=== PATIENT | male | born 1950 | race Caucasian/White ===

== ENCOUNTER → 2017-02-14 | Outpatient (CLI) | payer MEDICARE, OTHER ==
[2016-12-21 09:48] VITALS: BMI 26.9
[~2017-02-14] MED LIST: ACET-2043 PO; ACET-3079 PO; AMIN887L16 PO; AMIO100T PO; AMOX-362 PO; ASCO-182 PO; BAC10 PO; BACDS PO; BACL-51 PO; BISA10SU62 RC; BISA10SU66 RC; CALC-605 PO; CEFE2PIG2 IV; CEPH250C37 PO; CHOL10005 PO; CHOL100052 PO; CHOL200021 PO; CIP500 PO; CIPR-212 PO; CIPR-214 PO; CIPR-344 PO; CIT20 PO; CITA-137 PO; CITA-139 PO; CLAR-1 PO; CLIN300C99 PO; CLO1 PO; CLON-308 PO; CRAN200C5; CRAN400T5 PO; CRAN450C PO; CRAN450T10 PO; CYC10 PO; CYCL10TA29 PO; D3/E1CAP PO; DIA5 PO; DOC100 PO; DOCU-202 PO; DOCU50LI30 PO; DOXY-179 PO; DUL30 PO; DULO30CA35 PO; ENSURE PLUS PO; FENT-15 TD; FENT-90 TD; FENT1PAT40 TD; FESO8PT PO; FLU150 FT; FLU150 PO; FLUC150T40 PO; FLUC200T56 PO; GLAT20KI3 SQ; HYDR-4309 PO; LACT-214 PO; LACT1CAP6 PO; LACT1CAP64 PO; LEV500 PO; LEVO-85 PO; LEVO250T41 PO; LEVO750T27 PO; LOPE1TAB55 PO; LOR5/325 PO; MAGN400C PO; MELA1TAB27 PO; MELA3TAB31 PO; METR-159 PO; METR-160 PO; MIRA50TA PO; MIRT7.5T2 PO; MOM PO; MULT-976 PO; MULT1TAB64 PO; NEPA1.7D OP; NIT100 PO; NITR-1 PO; NYST1POW24 PO; OMEP-125 PO; OMEP40CA48 PO; ONDA4TAB PO; ONDA4TAB97 PO; ONDA8TAB91 PO; ONDA8TAB94 PO; OXYB10TA16 PO; OXYC-373 PO; OXYGENHOME INH; PANT40TA65 PO; PEP PO; PER PO; PHENA200 PO; POLY17PO21 PO; POTA-23 PO; POTA-24 PO; POTA-28 PO; POTA10CA61 PO; PROM25SU9 RC; QUE25 PO; QUET25TA PO; SAW/1TAB2 PO; SOLI10TA8 PO; SULF-198 PO; TIO18R INH; TOLT2TAB5 PO; TOLT4CAP13 PO; TRA50 PO; TRAM-627 PO; TRAZ-133 PO; VANC1FRO2 IV; ZINC PO; ZINC30OI8 TP; ZINC50TA2 PO; ZINC50TA43 PO; ZOLP-350 PO; [UNRECOGNIZED DRUG - CODE] IV; [UNRECOGNIZED DRUG - CODE] IV; [UNRECOGNIZED DRUG - CODE] IV; [UNRECOGNIZED DRUG - CODE] PO; [UNRECOGNIZED DRUG - CODE] PO
== END ==
LOC: AMB 22:15
PROVIDERS: ATTEND Nurse Practitioner
DX: R41.82 Altered mental status, unspecified (principal); W06.XXXA Fall from bed, initial encounter; Y92.122 Bedroom in nursing home as the place of occurrence of the external cause
CPT/HCPCS: A0425; A0429

== ENCOUNTER → 2017-02-15 | Outpatient (CLI) | payer MEDICARE, OTHER ==
[2016-12-21 09:48] VITALS: BMI 26.9
== END ==
LOC: AMB 01:27
PROVIDERS: ATTEND Nurse Practitioner
DX: G35 Multiple sclerosis (principal); Z74.01 Bed confinement status
CPT/HCPCS: A0425; A0428

== ENCOUNTER 2017-03-11 12:50 | Inpatient (IN) | payer MEDICARE ==
[~2017-03-11] VITALS: Ht 185.4 cm; Wt 79.8 kg
[~2017-03-11 12:50] MED LIST changes: -CRAN450C PO; -FENT-17 TD; -FENT-19 TD; -LIN600 PO; -MELA3TAB31 PO
--- NOTE | 2017-03-11 13:09 | ER Report ---
History and Physical Time Seen By MD: 13:08 HPI/ROS CHIEF COMPLAINT: Abdominal distention, hiccups, vomiting HISTORY OF PRESENT ILLNESS: Patient sent over to the emergency department after abnormal x-ray. He complains of continued hiccups and vomiting for the past 2 days. He endorses abdominal distention when asked. Denies hematemesis. Denies bloody or dark stools. Denies loose stools or diarrhea. Denies pain in the abdomen or elsewhere. No other concerns or complaints today. REVIEW OF SYSTEMS: Constitutional: No fever, no chills. Eyes: No discharge. ENT: No sore throat. Cardiovascular: No chest pain, no palpitations. Respiratory: No cough, no shortness of breath. Gastrointestinal: No abdominal pain, no vomiting. Genitourinary: No hematuria. Musculoskeletal: No back pain. Skin: No rashes. Neurological: No headache. Allergies: Coded Allergies: No Known Drug Allergies (Verified , 02/12/17) Home Meds Active Scripts Fluconazole (FLUCONAZOLE) 150 Mg Tab, 150 MG FT QODAY for yeast urinary tract infection, #2 TAB Prov:TYSON SANTILLAN DO 02/15/17 Pantoprazole Sodium (PANTOPRAZOLE SODIUM) 40 Mg Tablet.dr, 40 MG PO QDAY for 120 Days, Clear with patient's PCP or Dr. Olson before it is weaned and then stopped Prov:JASKARAN CULLEN MD 12/23/16 Potassium Chloride (KLOR-CON 10) 10 Meq Tablet.er, 10 MEQ PO DAILY, #0 Prov:JASKARAN CULLEN MD 03/06/16 Polyethylene Glycol 3350 (POLYETHYLENE GLYCOL 3350) 17 Gm Powd, 17 GM PO QDAY, # 1 BOTTLE Prov:PATRIZIA BRUNER MD 08/24/14 Magnesium Hydroxide (MILK OF MAGNESIA) 30 Ml Susp, 30 ML PO BID Y for CONSTIPATION, #1 BOTTLE Prov:PATRIZIA BRUNER MD 08/24/14 Reported Medications Duloxetine Hcl (CYMBALTA) 30 Mg Capsule.dr, 30 MG PO QDAY, CAP 11/30/16 Docusate Sodium (DOCU LIQUID) 50 Mg/5 Ml Liquid, 10 ML PO DAILY 11/30/16 Fentanyl (Fentanyl) 1 Each Patch.td72, 12 MCG TD Q72H 11/30/16 Ondansetron Hcl (ZOFRAN) 4 Mg Tablet, 8 MG PO Q4H Y for NAUSEA, TAB 08/16/16 Hydrocodone Bit/Acetaminophen (NORCO 5-325 TABLET) 1 Each Tablet, 1 EACH PO BID Y for PAIN, TAB 08/16/16 Cholecalciferol (Vitamin D3) (VITAMIN D) 1,000 Unit Tablet, 1000 UNIT PO QDAY 02/29/16 Multivitamin (MULTI VITAMIN DAILY) 1 Each Tablet, 1 EACH PO QDAY 02/29/16 Oxybutynin Chloride (OXYBUTYNIN CHLORIDE ER) 10 Mg Tab.er.24, 10 MG PO QDAY, TAB.SR 02/29/16 Lactobacillus Acidophilus (ACIDOPHILUS) 1 Each Capsule, 2 EACH PO QDAY, CAPSULE 11/03/15 Baclofen (BACLOFEN) 20 Mg Tablet, 20 MG PO QID, #15 TAB 08/15/14 Acetaminophen (ACETAMINOPHEN) 500 Mg Tablet, 500 MG PO TID Y for PRN, TAB 08/15/14 Bisacodyl (BISACODYL) 10 Mg Supp.rect, 10 MG RC BID Y for CONSTIPATION, SUPP.RECT 05/02/13 Hx Smoking: No Smoking Status: Former Smoker Exposure to Second Hand Smoke?: No Hx Substance Use Disorder: Yes (POT) Hx Alcohol Use: No Physical Exam General Appearance: The patient is alert, has no immediate need for airway protection and no signs of toxicity. He appears comfortable. He is hiccuping every few seconds. Eyes: Pupils equal and round no pallor or injection. ENT, Mouth: Mucous membranes are moist. Respiratory: There are no retractions, lungs are clear to auscultation. Cardiovascular: Regular rate and rhythm. No murmurs gallops or rubs Gastrointestinal: Abdomen is soft and non tender, positive for distention, positive for tympany diffusely. No masses, bowel sounds not appreciated Neurological: Multiple contractures otherwise normal baseline neuro exam Skin: Warm and dry, no rashes. Musculoskeletal: Neck is supple non tender. Extremities are nontender, nonswollen and have full range of motion. Edema, chronic DIFFERENTIAL DIAGNOSIS: After history and physical exam differential diagnosis was considered for gastric all obstruction, volvulus, other bowel obstruction, infection, adhesions HARRISON PEDRAZA MD Mar 11, 2017 13:09
[2017-03-11] MEDS ORDERED: PROMETHAZINE 25 MG/ML 1 ML AMP IVP ONE (13:15)
[2017-03-11 13:55] LABS: PLATELET COUNT, AUTOMATED 462 K/uL (150-450)
[2017-03-11] MEDS ORDERED: LORazepam 2 MG/ML VIAL IVP ONE (14:15)
--- NOTE | 2017-03-11 14:56 | RADIOLOGY IMAGING REPORT ---
FACILITY: [facility] - [place] PATIENT NAME: Jared Hammond : 1950 MR: [id number] V: [id number] EXAM DATE: ORDERING PHYSICIAN: HARRISON PEDRAZA TECHNOLOGIST: Location: [facility] [place] Patient: Jared Hammond : 1950 Visit/Account:[id number] Date of Sevice: 03/11/2017 EXAMINATION: CT abdomen and pelvis without IV contrast HISTORY: Abdominal distention. Volvulus. TECHNIQUE: Axial CT images of the abdomen and pelvis were obtained without IV contrast, with gautam l and sagittal 2D reconstructed images. One of the following dose optimization techniques was utilized in the performance of this exam: Autom ated exposure control; adjustment of the mA and/or kV according to the patient's size; or use of an i terative reconstruction technique. Specific details can be referenced in the facility's radiology C T exam operational policy. COMPARISON: 01/17/2017. FINDINGS: Evaluation of the solid and viscus parenchymal organs is limited without the benefit of IV contrast. Liver: Negative. Gallbladder and bile ducts: Negative. Spleen: Negative. Pancreas: Negative. Adrenal glands: Negative. Kidneys: There is persistent moderate hydronephrosis of both kidneys, with dilatation of both ureter s to the level of the urinary bladder. Small bilateral nonobstructing renal calculi on both kidneys. No ureteral calculus. There is a small amount of air within the right intrarenal collecting system, s imilar to prior. Bowel and peritoneum: There is marked distention of the stomach containing an air-fluid level, simil ar in appearance to the prior examinations. The duodenum is normal in caliber and unremarkable by non contrast CT imaging. Stable metallic density along the posterior wall of the gastric fundus, with loc alized streak artifact. The small bowel and colon are normal in caliber. The rectum is moderately dis tended with stool, measuring 8 cm in diameter. The upstream small bowel and colon are normal in calib er with a small to moderate volume of scattered colonic stool along the upstream colon. There are a f ew scattered colonic diverticula, without evidence of diverticulitis. No free fluid or free intraperi toneal air. Pelvic structures: The urinary bladder is decompressed, with a suprapubic catheter in place. Lymph node assessment: Negative. Vessels: Stable aneurysmal dilatation of the infrarenal abdominal aorta, measuring 3.6 cm. Musculoskeletal: No new osseous findings. Osteopenia, with multilevel degenerative changes througho ut the spine. Stable chronic dysmorphic changes at the right hip. There is diffuse muscular atrophy. Body wall: There is diastasis of the rectus abdominis muscles with some localized bulging along the midline abdominal wall at the umbilicus. No discrete hernia sac is defined. Lung bases: Mild groundglass opacity in the posterior lower lobes, likely atelectasis. IMPRESSION: 1. The small bowel and colon are normal in caliber. No bowel obstruction. The rectum is moderately di stended with stool, with a small amount amount of scattered upstream colonic stool. 2. Marked distention of the stomach with an air-fluid level, similar to prior examinations. This may be due to gastroparesis, without any CT evidence of a mechanical cause of gastric outlet obstruction. 3. Stable moderate hydronephrosis of both kidneys with dilatation of the ureters to the level of the bladder. No ureteral calculus. The urinary bladder is decompressed, with a suprapubic catheter in nila ce. 4. Colonic diverticulosis. 5. Additional nonacute findings as described. Report Dictated By: Haroon Bhagat MD at 03/11/2017 2:40 PM Report E-Signed By: Haroon Bhagat MD at 03/11/2017 2:52 PM WSN:[id number]
[2017-03-11 16:59] VITALS: BP 136/84
[2017-03-11] MEDS ORDERED: IMIPENEM/CILASTA(*) 500MG VIAL 500 MG in NS(*) 0.9% 100 ML BAG 100 ML IVPB SCH (18:00)
[2017-03-11] MEDS: NS(*) 0.9% 1000 ML BAG 1,000 ML IV PRN (18:01)
[2017-03-11] MEDS: VANCOMYCIN(*) 1 GM VIAL 1 GM, VANCOMYCIN (*) 0.5 GM VIAL 0.2 GM in NS(*) 0.9% 250 ML BA... IVPB SCH (18:02)
--- NOTE | 2017-03-11 19:14 | History & Physical ---
History of Present Illness History of Present Illness 66yo male with advanced MS, concern for gastroparesis and recurrent UTI secondary to an indwelling catheter who was sent to the ER for a distended stomach on plain film and vomiting. We don't have any records from the [facility] and he is a poor historian. He apparently was sent to the radiology department for n/v. It is unclear how long it has been going on. The radiologist noted a distended stomach on xray and sent him to the ER. The patient is without any specific complaints. In the ER, an NG was attempted to placed, but he couldn't tolerate it. He was also given Ativan and Phenergan. History Problems: (1) Multiple sclerosis Status: Chronic (2) Gastroparesis Status: Chronic (3) UTI (urinary tract infection) due to urinary indwelling catheter Status: Acute (4) History of suprapubic catheter Status: Chronic Home Meds Active Scripts Fluconazole (FLUCONAZOLE) 150 Mg Tab, 150 MG FT QODAY for yeast urinary tract infection, #2 TAB Prov:TYSON SANTILLAN DO 02/15/17 Pantoprazole Sodium (PANTOPRAZOLE SODIUM) 40 Mg Tablet.dr, 40 MG PO QDAY for 120 Days, Clear with patient's PCP or Dr. Olson before it is weaned and then stopped Prov:JASKARAN CULLEN MD 12/23/16 Potassium Chloride (KLOR-CON 10) 10 Meq Tablet.er, 10 MEQ PO DAILY, #0 Prov:JASKARAN CULLEN MD 03/06/16 Polyethylene Glycol 3350 (POLYETHYLENE GLYCOL 3350) 17 Gm Powd, 17 GM PO QDAY, # 1 BOTTLE Prov:PATRIZIA BRUNER MD 08/24/14 Magnesium Hydroxide (MILK OF MAGNESIA) 30 Ml Susp, 30 ML PO BID Y for CONSTIPATION, #1 BOTTLE Prov:PATRIZIA BRUNER MD 08/24/14 Reported Medications Duloxetine Hcl (CYMBALTA) 30 Mg Capsule.dr, 30 MG PO QDAY, CAP 11/30/16 Docusate Sodium (DOCU LIQUID) 50 Mg/5 Ml Liquid, 10 ML PO DAILY 11/30/16 Fentanyl (Fentanyl) 1 Each Patch.td72, 12 MCG TD Q72H 11/30/16 Ondansetron Hcl (ZOFRAN) 4 Mg Tablet, 8 MG PO Q4H Y for NAUSEA, TAB 08/16/16 Hydrocodone Bit/Acetaminophen (NORCO 5-325 TABLET) 1 Each Tablet, 1 EACH PO BID Y for PAIN, TAB 08/16/16 Cholecalciferol (Vitamin D3) (VITAMIN D) 1,000 Unit Tablet, 1000 UNIT PO QDAY 02/29/16 Multivitamin (MULTI VITAMIN DAILY) 1 Each Tablet, 1 EACH PO QDAY 02/29/16 Oxybutynin Chloride (OXYBUTYNIN CHLORIDE ER) 10 Mg Tab.er.24, 10 MG PO QDAY, TAB.SR 02/29/16 Lactobacillus Acidophilus (ACIDOPHILUS) 1 Each Capsule, 2 EACH PO QDAY, CAPSULE 11/03/15 Baclofen (BACLOFEN) 20 Mg Tablet, 20 MG PO QID, #15 TAB 08/15/14 Acetaminophen (ACETAMINOPHEN) 500 Mg Tablet, 500 MG PO TID Y for PRN, TAB 08/15/14 Bisacodyl (BISACODYL) 10 Mg Supp.rect, 10 MG RC BID Y for CONSTIPATION, SUPP.RECT 05/02/13 Allergies: Coded Allergies: No Known Drug Allergies (Verified , 02/12/17) Patient History: FH: dementia MOTHER, Age:unk FH: emphysema FATHER, , Age:70 Sepsis secondary to UTI Hx Smoking: No Smoking Status: Former Smoker Exposure to Second Hand Smoke?: No Caffeine Intake: Coffee Caffeine/Cups Per Day: 3 Hx Alcohol Use: No Hx Substance Use Disorder: Yes (POT) Social Drug Use: Currently Social Drugs: Marijuana Amount Of Social Drug/s Used: States, "if it's around, I smoke it." Review of Systems All Systems Reviewed/Normal: Yes, Except as Noted Exam Vital Signs Vital Signs Date Time Temp Pulse Resp B/P (MAP) Pulse Ox O2 Delivery O2 Flow Rate FiO2 03/11/17 16:59 98.3 109 20 136/84 (101) 91 Room Air 03/11/17 16:36 2.0 General Appearance: No Acute Distress (sleepy. Answers questions. ) Neuro: Other (Contracted in legs and arms. Sleepy. More confused than baseline) Cardiovascular: Regular Rate and Rhythm Respiratory: Clear to Auscultation GI: Abd Soft and Non-Tender Medical Decision Making Data Points Result Diagram: 03/11/17 1340 03/11/17 1340 Item Value Date Time White Blood Count 18.3 k/uL H 03/11/17 1340 Hemoglobin 15.7 g/dL 03/11/17 1340 Hematocrit 46.8 % 03/11/17 1340 Platelet Count 462 K/uL H 03/11/17 1340 Neutrophils (%) (Auto) 85.7 % H 03/11/17 1340 Creatinine 1.00 mg/dl 02/12/17 0818 Creatinine 0.90 mg/dl 03/11/17 1015 Creatinine 1.00 mg/dl 03/11/17 1340 Blood Urea Nitrogen 30 mg/dl H 03/11/17 1340 Blood Urea Nitrogen 29 mg/dl H 03/11/17 1015 Blood Urea Nitrogen 23 mg/dl H 02/12/17 0818 Random Glucose 129 mg/dl H 03/11/17 1340 Random Glucose 132 mg/dl H 03/11/17 1015 Random Glucose 126 mg/dl H 02/12/17 0818 Total Bilirubin 0.8 mg/dl 03/11/17 1340 Aspartate Amino Transf (AST/SGOT) 20 U/L 03/11/17 1340 Alanine Aminotransferase (ALT/SGPT) 32 U/L 03/11/17 1340 Alkaline Phosphatase 137 U/L H 03/11/17 1340 Troponin I < 0.012 ng/ml 03/11/17 1340 Total Protein 9.0 gm/dl H 03/11/17 1340 Albumin 4.3 g/dl 03/11/17 1340 Lipase 66 U/L 03/11/17 1340 Urine Leukocyte Esterase Moderate H 03/11/17 0000 Urine RBC 663 /HPF 03/11/17 0000 Urine WBC 3209 /HPF 03/11/17 0000 Urine WBC Clumps Many /HPF 03/11/17 0000 Urine Squamous Epithelial Cells None /LPF 03/11/17 0000 Urine Amorphous Crystals Few /HPF 03/11/17 0000 Urine Bacteria Negative /HPF 03/11/17 0000 Urine Mucus None /HPF 03/11/17 0000 EKG / Imaging Imaging Abd AP/Erect/decub - 1. Stomach is markedly distended with air worrisome for gastric outlet obstruction, either functional or mechanical Abd/Pelvis CT - 1. The small bowel and colon are normal in caliber. No bowel obstruction. The rectum is moderately distended with stool, with a small amount amount of scattered upstream colonic stool. 2. Marked distention of the stomach with an air-fluid level, similar to prior examinations. This may be due to gastroparesis, without any CT evidence of a mechanical cause of gastric outlet obstruction. 3. Stable moderate hydronephrosis of both kidneys with dilatation of the ureters to the level of the bladder. No ureteral calculus. The urinary bladder is decompressed, with a suprapubic catheter in place. 4. Colonic diverticulosis. 5. Additional nonacute findings as described. Assessment and Plan Problems: (1) UTI (urinary tract infection) due to urinary indwelling catheter Status: Acute Assessment & Plan: He presented with n/v/gastric distention and has pyuria. He has a h/o yeast and MRSA recently for UTI. He has been on fluconazole recently, reportedly. We are still awaiting the medication list from [facility]. Will place him in contact isolation, culture urine and treat with Primaxin and Vancomycin. (2) Gastroparesis Status: Chronic Assessment & Plan: He has a h/o gastric distention that occurs with acute UTI. Will try Reglan for nausea. Repeat KUB tomorrow. Might need to place NG if he has refractory vomiting. Will use IV Protonix. (3) Multiple sclerosis Status: Chronic Assessment & Plan: Hold Baclofen, oxybutynin, Cymbalta, Miralax, docusate. Will continue the Fentanyl patch. Copies to: HEMA RILEY MD Venous Thromboembolism Antithrombotics Is Pt On Any Antithrombotics?: No Exam Sepsis Risk: No Definite Risk JASKARAN CULLEN MD Mar 11, 2017 19:14
[2017-03-11 19:47] VITALS: BP 104/67
[2017-03-11] MEDS: METOCLOPRAMIDE 10 MG/2 ML SDV IVP PRN (20:12)
[2017-03-11] MEDS: IMIPENEM/CILASTA(*) 500MG VIAL 500 MG in NS(*) 0.9% 100 ML BAG 100 ML IVPB SCH (20:13)
[2017-03-11] MEDS ORDERED: MELA3TAB31 PO (22:07)
[2017-03-11] MEDS ORDERED: CRAN450C PO (22:07)
[2017-03-11 22:36] VITALS: BP 101/76
[2017-03-12] MEDS: IMIPENEM/CILASTA(*) 500MG VIAL 500 MG in NS(*) 0.9% 100 ML BAG 100 ML IVPB SCH ×4 (02:21→20:02)
[2017-03-12 02:23] VITALS: BP 124/79
[2017-03-12] MEDS: VANCOMYCIN(*) 1 GM VIAL 1 GM, VANCOMYCIN (*) 0.5 GM VIAL 0.2 GM in NS(*) 0.9% 250 ML BA... IVPB SCH (05:59)
[2017-03-12 06:43] LABS: PLATELET COUNT, AUTOMATED 401 K/uL (150-450)
[2017-03-12 07:48] VITALS: BP 130/80
[2017-03-12] MEDS: NS(*) 0.9% 1000 ML BAG 1,000 ML IV PRN ×2 (07:50→23:19)
--- NOTE | 2017-03-12 08:23 | RADIOLOGY IMAGING REPORT ---
FACILITY: [facility] - [place] PATIENT NAME: Jared Hammond : 1950 MR: [id number] V: [id number] EXAM DATE: ORDERING PHYSICIAN: JASKARAN CULLEN TECHNOLOGIST: Location: [facility] - [place] Patient: Jared Hammond : 1950 Visit/Account:[id number] Date of Sevice: 03/12/2017 KUB SINGLE VIEW ABDOMEN HISTORY: gastric distention Comparison made to previous CT scan from 03/11/2017. Findings: Marked gaseous distention of the stomach similar to the CT scan. Nonspecific visualized small and lar ge bowel. No abdominal mass lesions. Bony structures unremarkable. IMPRESSION: 1. Persistent marked gaseous distention of the stomach similar to the CT scan from 03/11/2017. Report Dictated By: Rupert Echeverria MD at 03/12/2017 8:15 AM Report E-Signed By: Rupert Echeverria MD at 03/12/2017 8:19 AM WSN:[id number]
[2017-03-12] MEDS: PANTOPRAZOLE SOD 40 MG IV VIAL IVP SCH (08:50)
[2017-03-12] MEDS: ENOXAPARIN 40 MG/0.4ML SYR SC SCH (08:50)
[2017-03-12] MEDS ORDERED: FENTANYL PATCH REMOVAL TP SCH (09:00)
[2017-03-12] MEDS ORDERED: fentaNYL 50 MCG TDSY TD SCH (09:00)
[2017-03-12] MEDS ORDERED: fentaNYL 25 MCG TDSY TD SCH (09:00)
[2017-03-12] MEDS ORDERED: NS(*) 0.9% 500 ML BAG 500 ML IV ONE (09:20)
--- NOTE | 2017-03-12 09:31 | Hospitalist Progress Note ---
Subjective Progress Notes Subjective He reports some belching with decreased abdominal discomfort. He would like to try ice chips and broth. Physical Exam Vital Signs Date Time Temp Pulse Resp B/P (MAP) Pulse Ox O2 Delivery O2 Flow Rate FiO2 03/12/17 07:54 92 Nasal Cannula 0.5 03/12/17 07:48 98.2 89 20 130/80 (97) Intake and Output 03/13/17 07:00 Intake Total 362 ml Balance 362 ml Intake IV Total 362 ml General Appearance: Alert, Awake, No Acute Distress Neuro: Other (He recognized me and new he was in the hospital. At or near baseline mental status.) GI: Other (Mildly distended, soft, non-tender. High pitched tinkling) Result Diagram: 03/12/1730 03/12/17 0630 Assessment and Plan Problems: (1) UTI (urinary tract infection) due to urinary indwelling catheter Status: Acute Assessment & Plan: He presented with n/v/gastric distention and has pyuria. He has a h/o yeast and MRSA recently for UTI. He has been on fluconazole recently, reportedly. We are still awaiting the medication list from [facility]. In contact isolation. Urine culture pending. IV Primaxin and Vancomycin. (2) Gastroparesis Status: Chronic Assessment & Plan: He has a h/o gastric distention that occurs with acute UTI. Trying Reglan for nausea. He still has mild abdominal distention, but feeling some improvement. Will advance to a clear liquid diet. Might need to place NG if he has refractory vomiting. Will use IV Protonix. (3) Elevated serum creatinine Status: Acute Assessment & Plan: Secondary to dehydration. Will bolus with 500cc of NS and recheck BMP at 1100. Continue NS at 100cc/hour. (4) Multiple sclerosis Status: Chronic Assessment & Plan: Hold Baclofen, oxybutynin, Cymbalta, Miralax, docusate. Will continue the Fentanyl patch. Exam Sepsis Risk: No Definite Risk JASKARAN CULLEN MD Mar 12, 2017 09:31
[2017-03-12 11:31] VITALS: BP 153/78
[2017-03-12] MEDS: METOCLOPRAMIDE 10 MG/2 ML SDV IVP PRN (12:27)
[2017-03-12 14:51] VITALS: BP 142/87
[2017-03-12 16:21] VITALS: Ht 185.4 cm; Wt 79.8 kg
[2017-03-12] MEDS: VANCOMYCIN IVPB SCH (17:18)
[2017-03-12] MEDS: [UNRECOGNIZED DRUG - OTHER] IVPB SCH (17:18)
[2017-03-12 19:11] VITALS: BP 144/79
[2017-03-12 22:17] VITALS: BP 121/69
[2017-03-13 02:10] VITALS: BP 109/70
[2017-03-13] MEDS: IMIPENEM/CILASTA(*) 500MG VIAL 500 MG in NS(*) 0.9% 100 ML BAG 100 ML IVPB SCH ×2 (02:13→08:43)
[2017-03-13 06:38] LABS: PLATELET COUNT, AUTOMATED 308 K/uL (150-450)
[2017-03-13] MEDS: [UNRECOGNIZED DRUG - OTHER] IVPB SCH ×2 (07:22→18:02)
[2017-03-13] MEDS: VANCOMYCIN IVPB SCH ×2 (07:22→18:02)
[2017-03-13 07:46] VITALS: BP 121/77
[2017-03-13] MEDS: ENOXAPARIN 40 MG/0.4ML SYR SC SCH (08:40)
[2017-03-13] MEDS: PANTOPRAZOLE SOD 40 MG IV VIAL IVP SCH (08:40)
[2017-03-13] MEDS ORDERED: INFLUENZA VIRUS VAC 0.5 ML SYR IM ONLY ONE (09:00)
[2017-03-13] MEDS ORDERED: METOCLOPRAMIDE 10 MG/2 ML SDV IVP PRN (09:35)
[2017-03-13 11:08] VITALS: BP 126/72
[2017-03-13] MEDS: NS(*) 0.9% 1000 ML BAG 1,000 ML IV PRN (11:15)
[2017-03-13] MEDS ORDERED: NS(*) 0.9% 1000 ML BAG 1,000 ML IV PRN (11:36)
--- NOTE | 2017-03-13 11:40 | Hospitalist Progress Note ---
Subjective Progress Notes Subjective He reports that he is wants try solid food. No n/v today. Physical Exam Vital Signs Date Time Temp Pulse Resp B/P (MAP) Pulse Ox O2 Delivery O2 Flow Rate FiO2 03/13/17 11:08 97.7 70 16 126/72 (90) 91 Room Air 03/13/17 07:46 0.5 Intake and Output 03/14/17 07:00 Intake Total 3295 ml Balance 3295 ml IV Total 3295 ml General Appearance: Alert, Awake, No Acute Distress GI: Soft and Non-Tender (mildly distended) Result Diagram: 03/13/17 0554 03/13/17 0554 Assessment and Plan Problems: (1) UTI (urinary tract infection) due to urinary indwelling catheter Status: Acute Assessment & Plan: He presented with n/v/gastric distention and has pyuria. He has a h/o yeast and MRSA recently for UTI. He has been on fluconazole recently, reportedly. We are still awaiting the medication list from [facility]. MRSA growing from urine. In contact isolation. On IV Primaxin and Vancomycin, will stop Primaxin. (2) Gastroparesis Status: Chronic Assessment & Plan: He has a h/o gastric distention that occurs with acute UTI. Trying Reglan for nausea. He still has mild abdominal distention, but feeling some improvement. He is tolerating oral intake today. KUB pending. If he continues to have gastric distention, will consider getting an Upper GI series to evaluate. (3) Elevated serum creatinine Status: Acute Assessment & Plan: Secondary to dehydration. Improving with hydration. Will decrease NS to 60 cc/hour. (4) Multiple sclerosis Status: Chronic Assessment & Plan: Hold Baclofen, oxybutynin, Cymbalta, Miralax, docusate. Will continue the Fentanyl patch. Exam Sepsis Risk: No Definite Risk JASKARAN CULLEN MD Mar 13, 2017 11:40
--- NOTE | 2017-03-13 13:47 | RADIOLOGY IMAGING REPORT ---
FACILITY: [facility] - [place] PATIENT NAME: Jared Hammond : 1950 MR: [id number] V: [id number] EXAM DATE: ORDERING PHYSICIAN: JASKARAN CULLEN TECHNOLOGIST: Location: [facility] - [place] Patient: Jared Hammond : 1950 Visit/Account:[id number] Date of Sevice: 03/13/2017 Exam type: KUB SINGLE VIEW ABDOMEN History: gastric distention Comparison: March 12, 2017. Findings: There is been improvement of the gaseous distention when compared to the prior study. A moderate umang unt of gas does remain in the gastric body and antrum. There now appears to be moderate gaseous dist ention of the right side of the colon. Several radiopaque densities persist over the left upper quad rant. Prominent interstitial markings seen in the lower lung puckett IMPRESSION: 1. Partial improvement of the gaseous distention when compared the prior study. There is moderate g aseous distention of the gastric body and antrum remaining. Moderate distention of the right-sided colon is now seen Report Dictated By: Kaylie Soria MD at 03/13/2017 1:39 PM Report E-Signed By: Kaylie Soria MD at 03/13/2017 1:43 PM WSN:[email or web address]
[2017-03-13 15:03] VITALS: BP 121/71
[2017-03-13] MEDS ORDERED: BARIUM SULFATE 176 GM BTL PO ONE (15:04)
--- NOTE | 2017-03-13 16:55 | Medical Nutrition Therapy ---
Nutrition Anthropometrics Height (Inches): 73.00 Height (Calculated Centimeters: 185.197302 Weight (Pounds): 176 Weight (Calculated Kilograms): 79.917 BMI Calculated: 23.22 Manish Nutrition Score: Probably Inadequate Manish Nutrition Risk Score: 12 Dietary Referral Nutrition Risk Factors: Unplanned Loss >10lbs Nutrition Risk Comment: Physical Findings Physical Appearance: Healthy BMI Skin Appearance Skin Appearance: Edema Edema Location Modifier: Both Edema Location: Lower Extremity Type of Edema: Degree of Edema: 2+ Gastrointestinal Symptoms GI Symtoms: Nausea Tube Present: Bowel Sounds: Recent Bowel Pattern: Stool Characteristics: Nutritional Diagnosis Nutritional Risk Acuity 2: GI Malabsorption Nutritional Risk Acuity 3: Substance abuse Nutritional Risk Acuity 4: %IBW 90-100% Past Medical History: MS, UTI Nutritional Acuity: 2-Moderate Nutrition Diagnosis: Altered GI Function Nutrition Etiology: Physiological Causes Nutrition Problem/Etiology/Sym: Altered GI function r/t possible gastroparesis secondary to UTI AEB abd distension. Energy Requirement: 2130 ([address] Jeor) Protein Requirement: 80 (1 g/kg) Fluid Requirement: 2400 (30 ml/kg) Diet Type: Diet as Tolerated APOLINAR/REG Nutrition Intervention: Cont diet as ordered, Encourage intake Nutrition Monitoring & Eval Nutrition Goals: Eat 75-100% Meal RD Patient Assessment Time: [address] Assessment Type: RD Assessment Patient Nutrition Acuity: 2-Moderate Follow Up Date: Mar 16, 2017 Nutritional Comment: 1/3 Pt admitted for hiccups, vommitting, and abnormal abd xray. Possible gastroparesis per hospitalist note. Notable labs include low Hct, elevated BUN, and elevated Cr. Alb and total pro WNL. Pt upgraded to clear liquids. Will continue to monitor and provide gastroparesis education as needed. 1/ Pt doing better today with no N/V and improved appetite. Pt reports wanting to try solid foods. Diet upgraded to APOLINAR. No intakes documented, but he is tolerating oral intake today per hospitalist. Pending abd xray. Notable labs include low H/H, Na 133, and BUN 33. Will continue to encourage and monitor intake. VLAD GAMINO Mar 13, 2017 12:48
[2017-03-13 19:19] VITALS: BP 124/78
[2017-03-13] MEDS ORDERED: MELATONIN 3 MG TAB PO SCH (21:00)
[2017-03-14 03:54] VITALS: BP 127/89
[2017-03-14] MEDS: VANCOMYCIN IVPB SCH (05:44)
[2017-03-14] MEDS: [UNRECOGNIZED DRUG - OTHER] IVPB SCH (05:44)
[2017-03-14 06:19] LABS: PLATELET COUNT, AUTOMATED 294 K/uL (150-450)
[2017-03-14 07:37] VITALS: BP 97/66
[2017-03-14] MEDS: ENOXAPARIN 40 MG/0.4ML SYR SC SCH (08:34)
[2017-03-14] MEDS: PANTOPRAZOLE SOD 40 MG IV VIAL IVP SCH (08:34)
--- NOTE | 2017-03-14 08:46 | RADIOLOGY IMAGING REPORT ---
FACILITY: [facility] PATIENT NAME: Jared Hammond : 1950 MR: [id number] V: [id number] EXAM DATE: ORDERING PHYSICIAN: JASKARAN CULLEN TECHNOLOGIST: Location: [facility] Patient: Jared Hammond : 1950 Visit/Account:[id number] Date of Sevice: 03/13/2017 Exam type: UPPER GI SERIES W/O AIR History: gastric distention Comparison: KUB performed earlier in the day. Findings: Upper GI series was performed portably at bedside due to patient's mobility issues. The patient was given a barium suspension to swallow. A single AP view the chest revealed no gross a bnormality of the esophagus. KUBs were obtained immediately following the barium ingestion, at 30 mi nutes to hours and 45 minutes five hours seven hours following barium ingestion. Most of the barium remained in the gastric fundus. On the seven hour images small amount of barium was noted within the nondilated jejunum. Findings are most likely related to gastroparesis, less likely mechanical gastr ic outlet due to the decompression of the stomach when compared to images several days previously and due to the passage of a small amount of barium into the nondilated jejunum IMPRESSION: 1. Large amount of residual barium remained in the stomach after seven hours though small amount of barium did pass into the nondilated jejunum. Findings are most likely related to gastroparesis. Report Dictated By: Kaylie Soria MD at 03/14/2017 8:36 AM Report E-Signed By: Kaylie Soria MD at 03/14/2017 8:40 AM WSN:[id number]
[2017-03-14] MEDS ORDERED: LIN600 PO (10:51)
[2017-03-14] MEDS ORDERED: FENT-19 TD (10:52)
[2017-03-14] MEDS ORDERED: FENT-17 TD (10:52)
--- NOTE | 2017-03-14 10:56 | Hospitalist Depart ---
Discharge Summary Reason for Hosp/Final Diag: (1) UTI (urinary tract infection) due to urinary indwelling catheter Status: Acute Hospital Course & Plan: He did have pyuria on admission and an elevated WBC. His culture was positive for MRSA. He was on empiric treatment with Primaxin and vancomycin. We have now converted him to oral linezolid. (2) Gastroparesis Status: Chronic Hospital Course & Plan: He has a history of gastric distention. This has now resolved and he is tolerating oral intake. (3) Elevated serum creatinine Status: Acute Hospital Course & Plan: Secondary to dehydration. Improving with hydration. Will decrease NS to 60 cc/hour. (4) Multiple sclerosis Status: Chronic Hospital Course & Plan: He is on chronic treatment with Baclofen and fentanyl. Departure Latest Vital Signs Vital Signs 03/13/17 03/14/17 03/14/17 07:46 07:37 07:42 Temp 97.9 Pulse 78 Resp 16 B/P (MAP) 97/66 (76) Pulse Ox 95 O2 Delivery Room Air O2 Flow Rate 0.5 Weight (Pounds): 176 Weight (Ounces): 3.0 Result Diagram: 03/14/1752503/14/17525 Condition: Improved Discharge: Halfway PT/OT Follow Up For: PT Evaluation and Treat Discharge Instructions Home Meds Active Scripts Fentanyl 50 Mcg Patch (FENTANYL 50 MCG PATCH) 1 Each Patch.td72, 50 MCG TD Q72H@ 0900, #1 PATCH Prov:CRISTA KEATING DO 03/14/17 Fentanyl 25 Mcg Patch (FENTANYL 25 MCG PATCH) 1 Each Patch.td72, 25 MCG TD Q72H@ 0900, #1 PATCH Prov:CRISTA KEATING DO 03/14/17 Linezolid (ZYVOX) 600 Mg Tab, 600 MG PO BID, #8 TAB Prov:RCISTA KEATING DO 03/14/17 Pantoprazole Sodium (PANTOPRAZOLE SODIUM) 40 Mg Tablet.dr, 40 MG PO QDAY for 120 Days, Clear with patient's PCP or Dr. Olson before it is weaned and then stopped Prov:JASKARAN CULLEN MD 12/23/16 Potassium Chloride (KLOR-CON 10) 10 Meq Tablet.er, 10 MEQ PO DAILY, #0 Prov:JASKARAN CULLEN MD 03/06/16 Polyethylene Glycol 3350 (POLYETHYLENE GLYCOL 3350) 17 Gm Powd, 17 GM PO QDAY, # 1 BOTTLE Prov:PATRIZIA BRUNER MD 08/24/14 Magnesium Hydroxide (MILK OF MAGNESIA) 30 Ml Susp, 30 ML PO BID Y for CONSTIPATION, #1 BOTTLE Prov:PATRIZIA BRUNER MD 08/24/14 Reported Medications Melatonin (MELATONIN) 3 Mg Tablet, 3 MG PO QHS 03/11/17 Docusate Sodium (DOCU LIQUID) 50 Mg/5 Ml Liquid, 10 ML PO DAILY 11/30/16 Ondansetron Hcl (ZOFRAN) 4 Mg Tablet, 8 MG PO Q4H Y for NAUSEA, TAB 08/16/16 Hydrocodone Bit/Acetaminophen (NORCO 5-325 TABLET) 1 Each Tablet, 1 EACH PO BID Y for PAIN, TAB 08/16/16 Cholecalciferol (Vitamin D3) (VITAMIN D) 1,000 Unit Tablet, 1000 UNIT PO QDAY 02/29/16 Multivitamin (MULTI VITAMIN DAILY) 1 Each Tablet, 1 EACH PO QDAY 02/29/16 Oxybutynin Chloride (OXYBUTYNIN CHLORIDE ER) 10 Mg Tab.er.24, 10 MG PO QDAY, TAB.SR 02/29/16 Lactobacillus Acidophilus (ACIDOPHILUS) 1 Each Capsule, 2 EACH PO QDAY, CAPSULE 11/03/15 Baclofen (BACLOFEN) 20 Mg Tablet, 20 MG PO QID, #15 TAB 08/15/14 Acetaminophen (ACETAMINOPHEN) 500 Mg Tablet, 500 MG PO TID Y for PRN, TAB 08/15/14 Bisacodyl (BISACODYL) 10 Mg Supp.rect, 10 MG RC BID Y for CONSTIPATION, SUPP.RECT 05/02/13 Discontinued Reported Medications Cranberry Fruit Concentrate (CRANBERRY) 450 Mg Capsule, 450 MG PO QDAY, CAPSULE 03/11/17 Duloxetine Hcl (CYMBALTA) 30 Mg Capsule.dr, 30 MG PO QDAY, CAP 11/30/16 Fentanyl (Fentanyl) 1 Each Patch.td72, 12 MCG TD Q72H 11/30/16 Discontinued Scripts Fluconazole (FLUCONAZOLE) 150 Mg Tab, 150 MG FT QODAY for yeast urinary tract infection, #2 TAB Prov:TYSON SANTILLAN DO 02/15/17 Diet: Regular Activity: As Tolerated Venous Thromboembolism Antithrombotics Is Pt On Any Antithrombotics?: No CRISTA KEATING DO Mar 14, 2017 10:56
== END 2017-03-14 14:57 | DRG 700 ==
LOC: ER 13:11 → MED 16:22
PROVIDERS: ADMIT Internal Medicine; ATTEND Internal Medicine
DX: T83.511A Infection and inflammatory reaction due to indwelling urethral catheter, initial encounter (principal); N39.0 Urinary tract infection, site not specified; B95.62 Methicillin resistant Staphylococcus aureus infection as the cause of diseases classified elsewhere; K31.84 Gastroparesis; G35 Multiple sclerosis; E86.0 Dehydration; G30.9 Alzheimer's disease, unspecified; E78.00 Pure hypercholesterolemia, unspecified; Y84.6 Urinary catheterization as the cause of abnormal reaction of the patient, or of later complication, without mention of misadventure at the time of the procedure; Z87.891 Personal history of nicotine dependence; Z86.73 Personal history of transient ischemic attack (TIA), and cerebral infarction without residual deficits
CPT/HCPCS: 36415; 74018; 74019; 74176; 74240; 80202; 81001; 82040; 82247; 82310; 82374; 82435; 82565; 82947; 83605; 83690; 84075; 84132; 84155; 84295; 84450; 84460; 84484; 84520; 85025; 85027; 87040; 87077; 87088; 87186; 96361; 96374; 99285; C9113; J0743; J1650; J2060; J2550; J2765; J3370; J7030; J7040; J7050; J7060

== ENCOUNTER → 2017-03-11 | Outpatient (CLI) | payer MEDICARE, OTHER ==
[2016-12-21 09:48] VITALS: BMI 26.9
--- NOTE | 2017-03-11 15:33 | RADIOLOGY IMAGING REPORT ---
FACILITY: [facility] - [place] PATIENT NAME: Jared Hammond : 1950 MR: [id number] V: [id number] EXAM DATE: ORDERING PHYSICIAN: HEMA RILEY TECHNOLOGIST: Location: [facility] Patient: Jared Hammond : 1950 Visit/Account:[id number] Date of Sevice: 03/11/2017 Exam type: ABDOMEN AP AND ERECT/DECUB History: Abnormal bowel sounds Comparison: January 18, 2017. Findings: The stomach is markedly distended with air. The remainder the bowel does not appear dilated. Findin gs are worrisome for gastric outlet obstruction, either mechanical or functional. Small amount of ra diopaque material is seen in the left upper quadrant of abdomen similar to the prior study. There sp ondylotic changes of the lumbar spine and extensive degenerative changes of the hip joints. Moderate vascular calcifications are present IMPRESSION: 1. Stomach is markedly distended with air worrisome for gastric outlet obstruction, either functiona l or mechanical Report Dictated By: Kaylie Soria MD at 03/11/2017 3:27 PM Report E-Signed By: Kaylie Soria MD at 03/11/2017 3:29 PM WSN:[email or web address]
== END ==
LOC: RAD 10:50
PROVIDERS: ATTEND Family Medicine
DX: K31.89 Other diseases of stomach and duodenum (principal)
CPT/HCPCS: 74021

== ENCOUNTER → 2017-03-11 | Outpatient (REF) | payer MEDICARE, OTHER ==
[2016-12-21 09:48] VITALS: BMI 26.9
== END ==
LOC: ZZLCC 11:14
PROVIDERS: ATTEND Family Medicine
DX: K31.84 Gastroparesis (principal); R41.82 Altered mental status, unspecified
CPT/HCPCS: 82310; 82374; 82435; 82565; 82947; 84132; 84295; 84520; 85027

== ENCOUNTER → 2017-03-11 | Outpatient (CLI) | payer MEDICARE ==
[~2017-03-11] MED LIST changes: +FENT-17 TD; +FENT-19 TD; +LIN600 PO; +VANC1.2520 IV; -[UNRECOGNIZED DRUG - CODE] IV
[2017-03-12 16:21] VITALS: BMI 23.2
== END ==
LOC: AMB 11:57
PROVIDERS: ATTEND Nurse Practitioner
DX: R19.7 Diarrhea, unspecified (principal)
CPT/HCPCS: A0425; A0428

== ENCOUNTER → 2017-03-14 | Outpatient (CLI) | payer MEDICARE, MEDICAID ==
[2017-03-12 16:21] VITALS: BMI 23.2
[~2017-03-14] MED LIST changes: +CEF300 PO; +CRAN450C PO; +FENT-17 TD; +FENT-19 TD; +LACT1CAP17 PO; +LIN600 PO; +MELA3TAB31 PO; +PROM-110 PO
== END ==
LOC: AMB 12:27
PROVIDERS: ATTEND Nurse Practitioner
DX: N39.0 Urinary tract infection, site not specified (principal); G71.0 Muscular dystrophy
CPT/HCPCS: A0425; A0428

== ENCOUNTER 2017-04-02 18:58 | Inpatient (IN) | payer MEDICARE, MEDICAID ==
[~2017-04-02] VITALS: Ht 185.4 cm; Wt 82.3 kg
[~2017-04-02 18:58] MED LIST changes: -LACT1CAP17 PO; -PROM-110 PO
[2017-04-02] MEDS: NS(*) 0.9% 1000 ML BAG 1,000 ML IV ONE ×4 (19:00→20:55)
--- NOTE | 2017-04-02 19:03 | ER Report ---
History and Physical Time Seen By : 19:00 HPI/ROS CHIEF COMPLAINT:? Sepsis, elevated WBC HISTORY OF PRESENT ILLNESS: 66-year-old male with advanced MS sent over from [facility] for evaluation of possible sepsis. Patient was just discharged from a hospital several weeks ago after being admitted for urinary tract infection. Patient is a chronic indwelling Child catheter. [facility] It was sent in earlier this morning documented a WBC count of 27,000 with a left shift, 92 neutrophils. He said over with a fever and tachycardia, suspicious for sepsis. Patient has altered mental status and is nonresponsive except crying out for help. He responds with grunting to loud verbal stimulation and questions. He will not follow some commands. Patient's well-known to our ER for frequent visits and admissions to the hospital. See [facility] paperwork for additional details. On arrival. Patient's documented have a fever of 101. [facility] will [facility] the [facility] on [facility]17 on Zyvox for 4 more days for MRSA in his urine. It's been completed now for over 15 days. EMS reports on arrival, he did appear cyanotic until he applied a simple mask with high flow O2. They report his color is pink, doubt during transport on the higher flow of O2. There is a DO NOT RESUSCITATE noted in the [facility] paperwork. REVIEW OF SYSTEMS: Respiratory: No cough, no dyspnea. Cardiovascular: No chest pain, no palpitations. Gastrointestinal: No vomiting, no abdominal pain. Musculoskeletal: No back pain. Allergies: Coded Allergies: No Known Drug Allergies (Verified , 02/12/17) Home Meds Active Scripts Linezolid (ZYVOX) 600 Mg Tab, 600 MG PO BID, #8 TAB Prov:CRISTA KEATING DO 03/14/17 Pantoprazole Sodium (PANTOPRAZOLE SODIUM) 40 Mg Tablet.dr, 40 MG PO QDAY for 120 Days, Clear with patient's PCP or Dr. Olson before it is weaned and then stopped Prov:JASKARAN CULLEN MD 12/23/16 Potassium Chloride (KLOR-CON 10) 10 Meq Tablet.er, 10 MEQ PO DAILY, #0 Prov:JASKARAN CULLEN MD 03/06/16 Polyethylene Glycol 3350 (POLYETHYLENE GLYCOL 3350) 17 Gm Powd, 17 GM PO QDAY, # 1 BOTTLE Prov:PATRIZIA BRUNER MD 08/24/14 Magnesium Hydroxide (MILK OF MAGNESIA) 30 Ml Susp, 30 ML PO BID Y for CONSTIPATION, #1 BOTTLE Prov:PATRIZIA BRUNER MD 08/24/14 Reported Medications Fentanyl (Fentanyl) 1 Each Patch.td72, 12 TD 04/02/17 Promethazine Hcl (PROMETHAZINE HCL) 25 Mg Tablet, 25 MG PO Q8H, TAB 04/02/17 Melatonin (MELATONIN) 3 Mg Tablet, 3 MG PO QHS 03/11/17 Docusate Sodium (DOCU LIQUID) 50 Mg/5 Ml Liquid, 10 ML PO DAILY 11/30/16 Ondansetron Hcl (ZOFRAN) 4 Mg Tablet, 8 MG PO Q4H Y for NAUSEA, TAB 08/16/16 Hydrocodone Bit/Acetaminophen (NORCO 5-325 TABLET) 1 Each Tablet, 1 EACH PO BID Y for PAIN, TAB 08/16/16 Cholecalciferol (Vitamin D3) (VITAMIN D) 1,000 Unit Tablet, 1000 UNIT PO QDAY 02/29/16 Multivitamin (MULTI VITAMIN DAILY) 1 Each Tablet, 1 EACH PO QDAY 02/29/16 Oxybutynin Chloride (OXYBUTYNIN CHLORIDE ER) 10 Mg Tab.er.24, 10 MG PO QDAY, TAB.SR 02/29/16 Lactobacillus Acidophilus (ACIDOPHILUS) 1 Each Capsule, 2 EACH PO QDAY, CAPSULE 11/03/15 Baclofen (BACLOFEN) 20 Mg Tablet, 20 MG PO QID, #15 TAB 08/15/14 Acetaminophen (ACETAMINOPHEN) 500 Mg Tablet, 500 MG PO TID Y for PRN, TAB 08/15/14 Bisacodyl (BISACODYL) 10 Mg Supp.rect, 10 MG RC BID Y for CONSTIPATION, SUPP.RECT 05/02/13 Discontinued Scripts Fentanyl 50 Mcg Patch (FENTANYL 50 MCG PATCH) 1 Each Patch.td72, 50 MCG TD Q72H@ 0900, #1 PATCH Prov:CRISTA KEATING DO 03/14/17 Fentanyl 25 Mcg Patch (FENTANYL 25 MCG PATCH) 1 Each Patch.td72, 25 MCG TD Q72H@ 0900, #1 PATCH Prov:CRISTA KEATING DO 03/14/17 Past Medical/Surgical History MS, recurrent urinary tract infections Reviewed Nurses Notes: Yes Old Medical Records Reviewed: Yes Hx Smoking: No Smoking Status: Former Smoker Exposure to Second Hand Smoke?: No Hx Substance Use Disorder: Yes (POT) Hx Alcohol Use: No Constitutional Vital Sign - Last 24 Hours 04/02/17 04/02/17 04/02/17 04/02/17 19:00 19:00 19:00 19:03 Temp 101.0 Pulse 138 134 Resp 35 B/P (MAP) 155/100 (118) 155/100 Pulse Ox 99 98 O2 Delivery Non-Rebreather O2 Flow Rate 15.0 04/02/17 04/02/17 04/02/17 04/02/17 19:08 19:13 19:18 19:23 Pulse 133 134 129 135 Resp 32 32 24 32 B/P (MAP) 134/88 (103) Pulse Ox 99 100 99 100 04/02/17 04/02/17 04/02/17 04/02/17 19:28 19:30 19:33 19:38 Pulse 135 138 143 Resp 19 16 35 B/P (MAP) 142/97 (112) Pulse Ox 100 99 99 04/02/17 04/02/17 04/02/17 04/02/17 19:45 19:45 19:48 19:53 Temp 102.2 Pulse 151 147 Resp 19 37 B/P (MAP) 132/90 (104) Pulse Ox 94 96 04/02/17 04/02/17 04/02/17 04/02/17 19:58 20:00 20:03 20:08 Pulse 141 137 133 Resp 34 32 14 B/P (MAP) 136/82 (100) Pulse Ox 96 95 95 04/02/17 04/02/17 04/02/17 04/02/17 20:13 20:15 20:18 20:23 Pulse 133 134 Resp 30 18 14 B/P (MAP) 108/77 (87) Pulse Ox 96 94 94 Physical Exam General Appearance: The patient is alert, has no immediate need for airway protection and no current signs of toxicity.. Patient is alert and crying out for help. He is nonverbal and unresponsive to questions. His vital signs are stable. He has a normal blood pressure. He is tachycardic into the 130s. Fever documented 102 rectally HEENT: Pupils equal and round no injection. Respiratory: Chest is non tender, lungs are clear to auscultation. Cardiac: regular rate and rhythm Gastrointestinal: Abdomen is soft and non tender, no masses, bowel sounds normal. Intact suprapubic catheter Musculoskeletal: Neck: Neck is supple and non tender. No lymphadenopathy Extremities have full range of motion and are non tender. Skin: No rashes or lesions. DIFFERENTIAL DIAGNOSIS: After history and physical exam differential diagnosis was considered for adult fever including but not limited to viral syndromes including influenza, urinary tract infection, pneumonia and sepsis. Medical Decision Making Data Points Result Diagram: 04/02/17190704/02/171907 Laboratory Hematology Test 04/02/17 00:00 04/02/17 19:08 04/02/17 19:26 04/02/17 19:46 Troponin I < 0.012 ng/ml C-Reactive Protein 25.0 mg/dl (<1.0) Urine Color Yellow Urine Clarity Turbid Urine pH 7.0 pH (4.8-9.5) Urine Specific [place] 1.009 Urine Protein 100 mg/dL (NEGATIVE) Urine Glucose (UA) Negative mg/dL (NEGATIVE) Urine Ketones Negative mg/dL (NEGATIVE) Urine Blood Moderate (NEGATIVE) Urine Nitrite Negative (NEGATIVE) Urine Bilirubin Negative (NEGATIVE) Urine Urobilinogen Negative mg/dL (0.2-1.9) Urine Leukocyte Esterase Large (NEGATIVE) Urine RBC 193 /HPF (0-2/HPF) Urine WBC 2762 /HPF (0-5/HPF) Urine WBC Clumps Many /HPF Urine Squamous Epithelial Cells Many /LPF (</=FEW) Urine Bacteria Many /HPF (NONE-FEW) Urine Mucus None /HPF (NONE-FEW) Influenza Virus Type A (PCR) Negative (NEGATIVE) Influenza Virus Type B (PCR) Negative (NEGATIVE) Chemistry Test 04/02/17 00:00 04/02/17 19:08 04/02/17 19:26 04/02/17 19:46 Troponin I < 0.012 ng/ml C-Reactive Protein 25.0 mg/dl (<1.0) Urine Color Yellow Urine Clarity Turbid Urine pH 7.0 pH (4.8-9.5) Urine Specific [place] 1.009 Urine Protein 100 mg/dL (NEGATIVE) Urine Glucose (UA) Negative mg/dL (NEGATIVE) Urine Ketones Negative mg/dL (NEGATIVE) Urine Blood Moderate (NEGATIVE) Urine Nitrite Negative (NEGATIVE) Urine Bilirubin Negative (NEGATIVE) Urine Urobilinogen Negative mg/dL (0.2-1.9) Urine Leukocyte Esterase Large (NEGATIVE) Urine RBC 193 /HPF (0-2/HPF) Urine WBC 2762 /HPF (0-5/HPF) Urine WBC Clumps Many /HPF Urine Squamous Epithelial Cells Many /LPF (</=FEW) Urine Bacteria Many /HPF (NONE-FEW) Urine Mucus None /HPF (NONE-FEW) Influenza Virus Type A (PCR) Negative (NEGATIVE) Influenza Virus Type B (PCR) Negative (NEGATIVE) Urinalysis Test 04/02/17 19:26 Urine Color Yellow Urine Clarity Turbid Urine pH 7.0 pH (4.8-9.5) Urine Specific [place] 1.009 Urine Protein 100 mg/dL (NEGATIVE) Urine Glucose (UA) Negative mg/dL (NEGATIVE) Urine Ketones Negative mg/dL (NEGATIVE) Urine Blood Moderate (NEGATIVE) Urine Nitrite Negative (NEGATIVE) Urine Bilirubin Negative (NEGATIVE) Urine Urobilinogen Negative mg/dL (0.2-1.9) Urine Leukocyte Esterase Large (NEGATIVE) Urine RBC 193 /HPF (0-2/HPF) Urine WBC 2762 /HPF (0-5/HPF) Urine WBC Clumps Many /HPF Urine Squamous Epithelial Cells Many /LPF (</=FEW) Urine Bacteria Many /HPF (NONE-FEW) Urine Mucus None /HPF (NONE-FEW) EKG/Imaging EKG Interpretation 12 lead EK Rhythm: Sinus tachycardia, rate 139 Stow: Left axis deviation QRS:? Inferior Q waves ST segments: normal, compared to previous EKG 02/12/17, no significant change except a new inferior Q waves of questionable significance Imaging X-ray: Single view portable chest x-ray was obtained. I viewed the images myself on the PACS system. My interpretation of the images is: No infiltrate, no effusion, normal mediastinum, comparison to previous film. 02/12/17. There is no significant change. the radiologist interpretation had no clinically significant variation from this interpretation. ED Course/Re-evaluation Clinical Indication for ER IV: Hydration, IV Access ED Course Patient was minute to an examination room. H&P was done. The dental diagnoses was considered. Patient's well-known to our ER for frequent visits for infection. He presents with symptoms suspicious for sepsis. He has altered mental status. He has a fever. He is tachycardic. Peripheral IV is established. Aggressive fluid resuscitation is initiated. Patient is olmos cultured. Patient's lactate returns at 14. There was laboratory studies earlier in the day that showed 27,000, white count. A repeat count here shows a white blood cell count of 7000. I am suspicious that one of these results is a laboratory error. Patient's urinalysis shows gross infection but he has chronic white cell count from his indwelling suprapubic catheter. A single view portable chest x-ray shows no obvious infiltrate. His only other sources skin breakdown on his sacral area. There is no evidence of infection there. 04/02/2017 8:34:39 pm case was discussed with Dr. Keating hospitalist on-call, who accepts patient for admission. Decision to Disposition Date: Apr 02, 2017 Decision to Disposition Time: 20:29 Depart Departure Latest Vital Signs Vital Signs Date Time Temp Pulse Resp B/P (MAP) Pulse Ox O2 Delivery O2 Flow Rate FiO2 04/02/17 20:23 14 94 04/02/17 20:18 134 04/02/17 20:15 108/77 (87) 04/02/17 19:45 102.2 04/02/17 19:00 Non-Rebreather 04/02/17 19:00 15.0 Impression: Primary Impression: Fever Additional Impressions: Sepsis Elevated serum lactate dehydrogenase Urinary tract infection Altered mental status MS (multiple sclerosis) Condition: Improved Disposition: Admitted from ER Problem Qualifiers Primary Impression: Fever Fever type: unspecified Qualified Codes: R50.9 - Fever, unspecified Additional Impressions: Sepsis Sepsis type: sepsis due to unspecified organism Qualified Codes: A41.9 - Sepsis, unspecified organism Urinary tract infection Urinary tract infection type: catheter-associated UTI Indwelling urinary catheter type: indwelling urethral catheter Encounter type: initial encounter Qualified Codes: T83.511A - Infection and inflammatory reaction due to indwelling urethral catheter, initial encounter; N39.0 - Urinary tract infection, site not specified Altered mental status Altered mental status type: disorientation Qualified Codes: R41.0 - Disorientation, unspecified TYSON SANTILLAN DO Apr 02, 2017 19:03
[2017-04-02 19:19] LABS: PLATELET COUNT, AUTOMATED 228 K/uL (150-450)
--- NOTE | 2017-04-02 19:36 | RADIOLOGY IMAGING REPORT ---
FACILITY: [facility] [place] PATIENT NAME: Jared Hammond : 1950 MR: [id number] V: [id number] EXAM DATE: ORDERING PHYSICIAN: TYSON SANTILLAN TECHNOLOGIST: Location: [facility] Patient: Jared Hammond : 1950 Visit/Account:[id number] Date of Sevice: 04/02/2017 Examination: CHEST SINGLE AP Comparison: 02/12/2017 History: Fever. Findings: Cardiac and hilar contour is mildly enlarged but unchanged. Low lung volumes and atelectasi s with mild chronic interstitial prominence. No definite new or enlarging consolidation or evidence o f acute peribronchial inflammation. No pneumothorax, edema, or effusion. Osseous structures are intac t. Given differences in technique, the chest is minimally changed since 02/12/2017. IMPRESSION: No definite findings of acute cardiopulmonary disease. Report Dictated By: Keyur Nevarez MD at 04/02/2017 7:30 PM Report E-Signed By: Keyur Nevraez MD at 04/02/2017 7:33 PM WSN:[id number]
[2017-04-02] MEDS ORDERED: ASPIRIN 81 MG CHEW PO ONE (19:45)
--- NOTE | 2017-04-02 20:27 | EKG ---
FACILITY: [facility] PATIENT NAME: LIZZY MCKEON : [id number] MR: [id number] V: [id number] EXAM DATE: ORDERING PHYSICIAN: TYSON SANTILLAN TECHNOLOGIST: Akash Hicks Reason : Blood Pressure : / mmHG Vent. Rate : 139 BPM Atrial Rate : 139 BPM P-R Int : 160 ms QRS Dur : 074 ms QT Int : 304 ms P-R-T Axes : 000 -70 051 degrees QTc Int : 462 ms Sinus tachycardia with occasional premature ventricular complexes and fusion complexes Left axis deviation Inferior infarct , age undetermined Abnormal ECG When compared with ECG of 12-FEB-2017 08:19, Significant changes have occurred Confirmed by CRISTA KEATING ([id number]) on 04/03/2017 5:37:17 AM Referred By: Confirmed By:CRISTA KEATING
[2017-04-02] MEDS ORDERED: FENT1PAT40 TD (20:45)
[2017-04-02] MEDS ORDERED: PROM-110 PO (20:45)
[2017-04-02] MEDS ORDERED: ACETAMINOPHEN 650 MG SUPP PR ONE (21:10)
[2017-04-02 21:26] VITALS: BP 110/82
[2017-04-02] MEDS ORDERED: NS(*) 0.9% 1000 ML BAG 1,000 ML IV PRN (22:06)
[2017-04-02] MEDS ORDERED: BISACODYL 10 MG SUPP PR PRN (22:10)
[2017-04-02] MEDS ORDERED: MAGNESIUM HYDROXIDE* 30ML UDCP PO PRN (22:10)
--- NOTE | 2017-04-02 22:20 | History & Physical ---
History of Present Illness Chief Complaint Fever History of Present Illness This patient presented to the emergency room after being found to have a fever and elevated WBC at the care home. He is currently unable to answer questions secondary to confusion. He does seem to be reaching for his suprapubic region. History Problems: (1) Ileus Status: Resolved (2) Recurrent UTI Status: Chronic (3) H. pylori duodenitis Status: Resolved (4) Gastric outlet obstruction Status: Chronic (5) Stroke Status: Chronic (6) Multiple sclerosis Status: Chronic Home Meds Active Scripts Linezolid (ZYVOX) 600 Mg Tab, 600 MG PO BID, #8 TAB Prov:CRISTA KEATING DO 03/14/17 Pantoprazole Sodium (PANTOPRAZOLE SODIUM) 40 Mg Tablet.dr, 40 MG PO QDAY for 120 Days, Clear with patient's PCP or Dr. Olson before it is weaned and then stopped Prov:JASKARAN CULLEN MD 12/23/16 Potassium Chloride (KLOR-CON 10) 10 Meq Tablet.er, 10 MEQ PO DAILY, #0 Prov:JASKARAN CULLEN MD 03/06/16 Polyethylene Glycol 3350 (POLYETHYLENE GLYCOL 3350) 17 Gm Powd, 17 GM PO QDAY, # 1 BOTTLE Prov:PATRIZIA BRUNER MD 08/24/14 Magnesium Hydroxide (MILK OF MAGNESIA) 30 Ml Susp, 30 ML PO BID Y for CONSTIPATION, #1 BOTTLE Prov:PATRIZIA BRUNER MD 08/24/14 Reported Medications Fentanyl (Fentanyl) 1 Each Patch.td72, 12 TD 04/02/17 Promethazine Hcl (PROMETHAZINE HCL) 25 Mg Tablet, 25 MG PO Q8H, TAB 04/02/17 Melatonin (MELATONIN) 3 Mg Tablet, 3 MG PO QHS 03/11/17 Docusate Sodium (DOCU LIQUID) 50 Mg/5 Ml Liquid, 10 ML PO DAILY 11/30/16 Ondansetron Hcl (ZOFRAN) 4 Mg Tablet, 8 MG PO Q4H Y for NAUSEA, TAB 08/16/16 Hydrocodone Bit/Acetaminophen (NORCO 5-325 TABLET) 1 Each Tablet, 1 EACH PO BID Y for PAIN, TAB 08/16/16 Cholecalciferol (Vitamin D3) (VITAMIN D) 1,000 Unit Tablet, 1000 UNIT PO QDAY 02/29/16 Multivitamin (MULTI VITAMIN DAILY) 1 Each Tablet, 1 EACH PO QDAY 02/29/16 Oxybutynin Chloride (OXYBUTYNIN CHLORIDE ER) 10 Mg Tab.er.24, 10 MG PO QDAY, TAB.SR 02/29/16 Lactobacillus Acidophilus (ACIDOPHILUS) 1 Each Capsule, 2 EACH PO QDAY, CAPSULE 11/03/15 Baclofen (BACLOFEN) 20 Mg Tablet, 20 MG PO QID, #15 TAB 08/15/14 Acetaminophen (ACETAMINOPHEN) 500 Mg Tablet, 500 MG PO TID Y for PRN, TAB 08/15/14 Bisacodyl (BISACODYL) 10 Mg Supp.rect, 10 MG RC BID Y for CONSTIPATION, SUPP.RECT 05/02/13 Discontinued Scripts Fentanyl 50 Mcg Patch (FENTANYL 50 MCG PATCH) 1 Each Patch.td72, 50 MCG TD Q72H@ 0900, #1 PATCH Prov:CRISTA KEATING DO 03/14/17 Fentanyl 25 Mcg Patch (FENTANYL 25 MCG PATCH) 1 Each Patch.td72, 25 MCG TD Q72H@ 0900, #1 PATCH Prov:CRISTA KEATING DO 03/14/17 Allergies: Coded Allergies: No Known Drug Allergies (Verified , 02/12/17) Patient History: FH: dementia MOTHER, Age:unk FH: emphysema FATHER, , Age:70 Sepsis secondary to UTI Hx Smoking: No Smoking Status: Former Smoker Exposure to Second Hand Smoke?: No Caffeine Intake: Coffee Caffeine/Cups Per Day: 3 Hx Alcohol Use: No Hx Substance Use Disorder: Yes (POT) Social Drug Use: Currently Social Drugs: Marijuana Amount Of Social Drug/s Used: States, "if it's around, I smoke it." Review of Systems All Systems Reviewed/Normal: Yes, Except as Noted Constitutional: Fever Exam Vital Signs Vital Signs Date Time Temp Pulse Resp B/P (MAP) Pulse Ox O2 Delivery O2 Flow Rate FiO2 04/02/17 21:08 114 17 91 04/02/17 21:00 89/54 (66) 04/02/17 20:36 100.7 04/02/17 19:00 Non-Rebreather 04/02/17 19:00 15.0 Neuro: No Gross deficits Eyes: PERRLA Cardiovascular: Regular Rate and Rhythm Respiratory: Clear to Auscultation GI: Other (Tenderness to palpation in suprapubic region.) Extremities: Edema, Other (Contracted left upper extremity.) Integumentary: No Cyanosis Medical Decision Making Data Points Result Diagram: 04/02/17190704/02/171907 Item Value Date Time Influenza Virus Type A (PCR) Negative 04/02/171945 Influenza Virus Type B (PCR) Negative 04/02/171945 Item Value Date Time Lactate 14.8 mmol/L *H 04/02/171907 Item Value Date Time Urine Leukocyte Esterase Large H 04/02/171925 Urine Squamous Epithelial Cells Many /LPF H 04/02/171925 EKG / Imaging Imaging Chest x-ray reviewed. Assessment and Plan Problems: (1) UTI (urinary tract infection) due to urinary indwelling catheter Status: Acute Assessment & Plan: He presented with a fever to 102 and his WBC was 27 earlier today. His urine has large leukocytes, as it usually does, but he is tender of the suprapubic region. He has a history of frequent urinary infections with MRSA and a fairly sensitive Pseudomonas. We have placed him on empiric treatment with ceftazidime and vancomycin. We have also requested a repeat urinalysis and urine culture since his original sample is contaminated. (2) Sepsis Status: Resolved Assessment & Plan: He did present with fever, lactic acidosis, and an elevated WBC earlier today. He has been treated with IV fluids and we are awaiting a repeat lactate level. (3) MS (multiple sclerosis) Status: Acute Assessment & Plan: He is on chronic treatment with Baclofen. Venous Thromboembolism Antithrombotics Is Pt On Any Antithrombotics?: No Exam Sepsis Risk: Possible Severe Sepsis Risk Problem Qualifiers (1) Sepsis: Sepsis type: sepsis due to unspecified organism Qualified Codes: A41.9 - Sepsis, unspecified organism CRISTA KEATING DO Apr 02, 2017 22:20
[2017-04-02] MEDS ORDERED: cefTAZidime 1 GM VIAL ONE (22:49)
[2017-04-02] MEDS ORDERED: NS(*) 0.9% 250 ML ADDVAN BAG 250 ML ONE (22:50)
[2017-04-02] MEDS ORDERED: VANCOMYCIN 1 GM ADDVIAL ONE (22:50)
[2017-04-02] MEDS ORDERED: NS(*) 0.9% 100 ML BAG 0 ML ONE (22:50)
[2017-04-02] MEDS ORDERED: NS(*) 0.9% 100 ML BAG 100 ML ONE (22:54)
[2017-04-02 22:59] VITALS: BP 89/64
[2017-04-02] MEDS ORDERED: NS 0.9% IVPB SCH (23:00)
[2017-04-02] MEDS ORDERED: CEFTAZIDIME IVPB SCH (23:00)
[2017-04-02] MEDS ORDERED: NS(*) 0.9% 1000 ML BAG 1,000 ML IV ONE (23:05)
[2017-04-02] MEDS ORDERED: VANCOMYCIN 0.5 GM VIAL ONE (23:06)
[2017-04-02] MEDS ORDERED: WATER STERILE(*) 10 ML VIAL 10 ML ONE (23:06)
[2017-04-02] MEDS ORDERED: VANCOMYCIN(*) 1 GM VIAL 1.5 GM in NS(*) 0.9% 250 ML BAG 250 ML IVPB ONE (23:30)
[2017-04-03] VITALS (62 sets, daily range): BP systolic 82–122; BP diastolic 47–89; Ht 185.4 cm; Wt 82.3 kg
[2017-04-03 04:14] LABS: PLATELET COUNT, AUTOMATED 160 K/uL (150-450)
[2017-04-03] MEDS ORDERED: NS(*) 0.9% 1000 ML BAG 1,000 ML IV PRN ×2 (05:33→08:19)
[2017-04-03] MEDS ORDERED: NS(*) 0.9% 1000 ML BAG 1,000 ML IV ONE (05:35)
--- NOTE | 2017-04-03 05:52 | Miscellaneous Provider Note ---
Miscellaneous Provider Note Note This morning he has had emil blood and press from the urethral meatus. The suprapubic catheter has been changed and remains in place, however, the is very little urine or blood in the catheter. There was urine leaking around the catheter site. An ultrasound confirmed the catheter to be in the bladder, but thick fluid is noted to fill the bladder with very little of what appears to be urine. His lactate, tachycardia, and blood pressure have all improved overnight , but he continues to have a flat appearing IJ on ultrasound. We will repeat an IV bolus and increase his fluid rate to 250cc/hr. We will also attempt to contact Dr. Glynn for possible bladder irrigation. CRISTA KEATING DO Apr 03, 2017 05:52
[2017-04-03] MEDS: DOCUSATE SOD LIQ 100 MG/10 ML UDC PO SCH (08:43)
[2017-04-03] MEDS: POLYETHYLENE GLYCOL 17 GM PKT PO SCH (08:43)
[2017-04-03] MEDS ORDERED: ENOXAPARIN 40 MG/0.4ML SYR SC SCH (09:00)
[2017-04-03] MEDS: PANTOPRAZOLE SOD 40 MG IV VIAL IVP SCH (09:28)
[2017-04-03] MEDS ORDERED: CRAN450T10 PO (09:39)
[2017-04-03] MEDS ORDERED: DULO30CA35 PO (09:47)
[2017-04-03] MEDS ORDERED: LACT-214 PO (09:54)
[2017-04-03] MEDS ORDERED: LACT1CAP17 PO (09:54)
[2017-04-03] MEDS ORDERED: CHOL10005 PO (09:54)
[2017-04-03] MEDS ORDERED: INFLUENZA VIRUS VAC 0.5 ML SYR IM ONLY ONE (10:00)
[2017-04-03] MEDS: ACETAMINOPHEN(*)1000 MG/100 ML 100 ML IVPB PRN (12:23)
[2017-04-03] MEDS: VANCOMYCIN(*) 1 GM VIAL 1 GM, VANCOMYCIN HCL 0.750 GM VIAL 0.75 GM in NS(*) 0.9% 250 ML... IVPB SCH (14:53)
--- NOTE | 2017-04-03 15:24 | Hospitalist Progress Note ---
Subjective Progress Notes Subjective Since being in the ICU he has had less blood from the urethra. He still will intermittently call out. Physical Exam Vital Signs Date Time Temp Pulse Resp B/P (MAP) Pulse Ox O2 Delivery O2 Flow Rate FiO2 04/03/17 14:56 Room Air 04/03/17 14:45 98.0 74 14 94/59 (71) 89 04/02/17 19:00 15.0 Intake and Output 04/04/17 07:00 Intake Total 2475 ml Output Total 565 ml Balance 1910 ml Intake IV Total 2475 ml Output Urine Total 565 ml # Bowel Movements 1 General Appearance: Alert, Awake, Other Neuro: Other (Not answering questions. Not following commands. Occasionally calls out. No focal deficits.) Cardiovascular: Regular Rate and Rhythm Respiratory: Clear to Auscultation GI: Soft and Non-Tender : Other (Small amount of blood from the urethra.) Result Diagram: 04/03/1740704/03/17407 Assessment and Plan Problems: (1) UTI (urinary tract infection) due to urinary indwelling catheter Status: Acute Assessment & Plan: He presented with a fever to 102 and his WBC was 27. His urine has large leukocytes, as it usually does, but he was tender of the suprapubic region. He has a history of frequent urinary infections with MRSA and a fairly sensitive Pseudomonas. We have placed him on empiric treatment with ceftazidime and vancomycin. Dr. Glynn has seen the patient for hematuria from the urethra. (2) Sepsis Status: Resolved Assessment & Plan: He did present with fever, lactic acidosis, and an elevated WBC earlier today. He has been treated with IV fluids and moved to the ICU. BP is stable. Lactate has normalized. He is growing GNR from blood cultures. (3) ARF (acute renal failure) Status: Acute Assessment & Plan: Secondary to sepsis. He is getting hydration. Creatinine is improving. (4) MS (multiple sclerosis) Status: Acute Assessment & Plan: He is on chronic treatment with Baclofen, which will be held. Exam Sepsis Risk: Severe Sepsis Risk Problem Qualifiers (1) Sepsis: Sepsis type: sepsis due to unspecified organism Qualified Codes: A41.9 - Sepsis, unspecified organism JASKARAN CULLEN MD Apr 03, 2017 15:24
[2017-04-04] VITALS (18 sets, daily range): BP systolic 95–153; BP diastolic 58–93
[2017-04-04] MEDS: VANCOMYCIN(*) 1 GM VIAL 1 GM, VANCOMYCIN HCL 0.750 GM VIAL 0.75 GM in NS(*) 0.9% 250 ML... IVPB SCH (03:03)
[2017-04-04] MEDS: ACETAMINOPHEN(*)1000 MG/100 ML 100 ML IVPB PRN ×2 (04:23→13:18)
[2017-04-04 06:02] LABS: PLATELET COUNT, AUTOMATED 155 K/uL (150-450)
--- NOTE | 2017-04-04 08:53 | Antimicrobial Stewardship ---
Antimicrobial Stewardship Service: Hospitalist Indications: UTI, Other (Sepsis) Antimicrobial Used Ceftazidime + Vancomycin Start Date: Apr 02, 2017 Height (Calculated Centimeters: [phone] Weight (Calculated Kilograms): 84.538 Creatinine Cl 04/03/17: Scr = 1.4, CrCl = 59 ml/min Levels 04/03/17 @ 1300: Vanco Random = 10.8 Culture Results: Yes (04/02/17: Blood cx x 2 - (+) GNR, Urine from ED cultured on 04/03/17 - cath sample- pending) Recommendations re: Culture On Ceftazidime 2 g IV q12h - GNR growing in both blood cultures, likely source urine - Continue, dose appropriate for renal function, watch closely to increase frequency as CrCl improves, Continue Vancomycin until urine cx comes back, as he has an extensive history of MRSA Heart Rate < or = 90 bpm: Yes SBP > or = 90 mm Hg: No Eligable for PO Conversion: No Comments 67 yo M with a history of UTI, supra pubic catheter who presented from the [facility] with fever, tachycardia, altered mental status, presumed sepsis. WBC = 33 (95% neutrophils), Tmax = 102.2, lactate 14.8, CRP 25, Scr 1.7 Blood Cx x 2 --- GNR - await ID and sens Urine Cx pending Antibiotics: Ceftazidime 2g IV Q12H Vancomycin 1.5 g x 1, then 1.75g IV Q12H -- trough 10.8 (04/03/16 - 1300), trough pending 04/04/17 @1400 Continue present management. Patient with a history of MRSA UTI, mixed infection...if urine culture negative, then d/c Vancomycin. Justine Montero, PharmD, BCOP JUSTINE MONTERO Apr 03, 2017 15:04
[2017-04-04] MEDS: DOCUSATE SOD LIQ 100 MG/10 ML UDC PO SCH (09:00)
[2017-04-04] MEDS: POLYETHYLENE GLYCOL 17 GM PKT PO SCH (09:00)
--- NOTE | 2017-04-04 09:18 | Medical Nutrition Therapy ---
Nutrition Anthropometrics Height (Inches): 73.00 Height (Calculated Centimeters: [phone] Weight (Pounds): 188 Weight (Calculated Kilograms): 85.275 BMI Calculated: 24.54 Manish Nutrition Score: Very Poor Manish Nutrition Risk Score: 11 Dietary Referral Nutrition Risk Factors: Diff. Swallowing Nutrition Risk Comment: Physical Findings Physical Appearance: BMI 24.8 WNR Skin Appearance Skin Appearance: Edema Edema Location Modifier: Left Edema Location: Foot Type of Edema: Degree of Edema: 2+ Gastrointestinal Symptoms GI Symtoms: Tube Present: Bowel Sounds: Recent Bowel Pattern: Stool Characteristics: Nutritional Diagnosis Nutritional Risk Acuity 1: Acute/ES Renal Past Medical History: advanced MS, recurrent UTI, stroke, gastric outlet obstruction, gastroparesis Nutritional Acuity: 1-High Nutrition Diagnosis: Inadequate Food Intake Nutrition Etiology: Physiological Causes Nutrition Problem/Etiology/Sym: Inadequate food intake possibly r/t combative behaviour with UTI AEB pt refusing meals. Energy Requirement: 2130 (M-SJ) Protein Requirement: 85 (1gm/kg) Fluid Requirement: 2250 (30ml/kg) Diet Type: Diet as Tolerated APOLINAR/REG Nutrition Intervention: Cont diet as ordered, Encourage intake, Between meal supplement Additional Diet Restrictions: OFFER NUTR SUPPLMENT IF REFUSING MEALS Diet Comment To RSA: LIMIT HIGH FIBER AND HIGH FAT FOODS Nutrition Monitoring & Eval Nutrition Goals: Eat 75-100% Meal RD Patient Assessment Time: [address] Assessment Type: RD Assessment Patient Nutrition Acuity: 1-High Follow Up Date: Apr 06, 2017 Nutritional Comment: 04/03 Pt admitted for UTI and sepsis. Pt also has AMS and is non-responsive at this time. Pt was recently discharged on Mar.14 for UTI. Pt wt is 186# which is up 10# from last admission. BMI 24.6, still within normal limits. Notable labs include low H/H, Na 136, BUN 31, Cr 1.4, glu 117, total pro 5.7, and alb 2.6. Pt is APOLINAR with no intake documented. Will continue to monitor labs, intakes, etc. 04/03 Nursing admission assessment reports difficulty swallowing. Cannot find hx of difficulty swallowing during last admission. Pt was on reg diet and had 100% average intake during last admission. Will follow up with pt as he becomes more responsive. If unable to communicate, pt may benefit from swallow eval. 04/04 Diet advanced to regular however pt has been refusing meals. Nursing reporting behaviour is combative. Will offer a nutr supplement if pt cont to refuse meals. BUN cont elevated at 30. Creatinine is WNR. Alb 2.5. K+ 3.3 and pt is recieving a supplment. Pt has hx of gastroparesis. Will discourage high fiber and high fat foods. Wt up 3 # with 2+ edema to lt foot noted. Sepsis is resolved. Will cont to monitor and encourage intake. LEÓN LAROSE Apr 04, 2017 09:17
[2017-04-04] MEDS: PANTOPRAZOLE SOD 40 MG IV VIAL IVP SCH (09:23)
[2017-04-04] MEDS: KCL/NS* 20 MEQ/1000 ML PREMIX 1,000 ML IV PRN ×2 (09:57→23:38)
--- NOTE | 2017-04-04 13:43 | Hospitalist Progress Note ---
Subjective Progress Notes Subjective is a 67 y.o. male with PMH of Advance MS, Recurrent UTI, presented to the emergency room after being found to have a fever and elevated WBC at the snf. He was treated for sepsis and ADAN in the ICU setting. He is currently on Ceftaz and Vancomycin and he is afebrile today. His K level is low3.3. His WBC came down from 33K to 15K and BUN/Cr is 30/1.0. He seems more alert. Patient Complains of: Neurological: Confusion, No: Syncope Cardiovascular: No: Chest Pain, Palpitations Respiratory: Cough, No: Congestion, Shortness of Breath, Wheezing Gastrointestinal: No Nausea, No Vomiting, No Flatus, No Bowel Movement Genitourinary: No Dysuria, No Hematuria Musculoskeletal: Other (sore mouth), No: Pain, Sprain, Strain, Impaired Mobility Physical Exam Vital Signs Date Time Temp Pulse Resp B/P (MAP) Pulse Ox O2 Delivery O2 Flow Rate FiO2 04/04/17 12:00 95 04/04/17 12:00 98.2 22 107/93 (98) 96 Room Air 04/02/17 19:00 15.0 Intake and Output 04/05/17 07:00 Intake Total 1366 ml Output Total 100 ml Balance 1266 ml Intake Oral 1050 ml IV Total 316 ml Output Urine Total 100 ml General Appearance: Alert, Awake, No Acute Distress, Afebrile Neuro: No Gross deficits (no acute neuro change) Eyes: PERRLA ENT: Normal Neck: No Masses Cardiovascular: Normal Rhythm & Peripheral Pulses Respiratory: No Respiratory Distress GI: Soft and Non-Tender Extremities: Other (contracted LE) Integumentary: Skin Intact without Lesion / Mass Result Diagram: 04/04/17 0510 04/04/17 0510 Assessment and Plan Problems: (1) UTI (urinary tract infection) due to urinary indwelling catheter Status: Acute Assessment & Plan: He presented with a fever to 102 and his WBC was 27. His urine has large leukocytes, as it usually does, but he was tender of the suprapubic region. He has a history of frequent urinary infections with MRSA and a fairly sensitive Pseudomonas. We have placed him on empiric treatment with ceftazidime and vancomycin. Dr. Glynn has seen the patient for hematuria from the urethra. 04/04: His Blood and Urine Cx is positive for GNR and he has h/o Pseudomona and VRE. I will continue VAnco and Ceftaz for now and wait for ID and Sensitivity. He can be transferred to Med/Surg floor. (2) ARF (acute renal failure) Status: Acute Assessment & Plan: Secondary to sepsis. He is getting hydration. Creatinine is improving. 04/04: He is still mildly dehydrated and I will increase his fluids to ND with 20meq KCL at 80ml/h (3) Sepsis Status: Resolved Assessment & Plan: He did present with fever, lactic acidosis, and an elevated WBC earlier today. He has been treated with IV fluids and moved to the ICU. BP is stable. Lactate has normalized. He is growing GNR from blood cultures. (4) MS (multiple sclerosis) Status: Acute Assessment & Plan: He is on chronic treatment with Baclofen, which will be held. Central Venous Access Medical Necessity for Access: Hemodynamic Monitoring, IV Access, Medication Administration Time Spent on Plan of Care: > 30 min Exam Sepsis Risk: No Definite Risk Problem Qualifiers (1) Sepsis: Sepsis type: sepsis due to unspecified organism Qualified Codes: A41.9 - Sepsis, unspecified organism HUMBERTO NEWTON MD Apr 04, 2017 13:43
[2017-04-05 05:26] VITALS: BP 160/94
[2017-04-05 05:43] LABS: PLATELET COUNT, AUTOMATED 149 K/uL (150-450)
[2017-04-05] MEDS: PATCH REMOVAL 1 EA TP SCH (09:00)
[2017-04-05] MEDS ORDERED: fentaNYL 12 MCG TDSY TD SCH (09:00)
[2017-04-05 09:35] VITALS: BP 140/102
[2017-04-05] MEDS: PANTOPRAZOLE SOD 40 MG IV VIAL IVP SCH (09:35)
[2017-04-05] MEDS: POTASSIUM CHL 20 MEQ TABCR PO SCH ×2 (09:35→17:14)
[2017-04-05] MEDS: POLYETHYLENE GLYCOL 17 GM PKT PO SCH (09:35)
[2017-04-05] MEDS: ATENOLOL 25 MG TAB PO SCH (09:35)
[2017-04-05 10:46] VITALS: BP 138/101
[2017-04-05] MEDS: KCL/NS* 20 MEQ/1000 ML PREMIX 1,000 ML IV PRN (14:26)
--- NOTE | 2017-04-05 15:34 | Hospitalist Progress Note ---
Subjective Progress Notes Subjective is a 67 y.o. male with PMH of Advance MS, Recurrent UTI, presented to the emergency room after being found to have a fever and elevated WBC at the intermediate. He was treated for sepsis and ADAN in the ICU setting. He is currently on Ceftaz and Vancomycin and he is afebrile today. His K level is low3.3. His WBC came down from 33K to 15K and BUN/Cr is 30/1.0. He seems more alert. 04/05: He is more alert and awake. He is afebrile and hemodynamically stable. He is off Vancomycin and taking Ceftaz for his positive blood and urine CX for Klebsiella pneumonia. His BP is elevated today 160/90. His K level is low 3.4. Patient Complains of: Neurological: Confusion, Weakness, No: Syncope, Dizziness, Slurred Speech Cardiovascular: No: Chest Pain, Palpitations Respiratory: Shortness of Breath, No: Cough, Congestion, Wheezing Gastrointestinal: No Nausea, No Vomiting Genitourinary: Urinary Incontinence (suprapubic catheter), No Dysuria, No Hematuria Musculoskeletal: Impaired Mobility, No: Pain, Sprain, Strain Physical Exam Vital Signs Date Time Temp Pulse Resp B/P (MAP) Pulse Ox O2 Delivery O2 Flow Rate FiO2 04/05/17 10:46 97.9 80 20 138/101 (113) 95 Room Air 04/02/17 19:00 15.0 Intake and Output 04/06/17 07:00 Intake Total 785 ml Output Total 1250 ml Balance -465 ml Intake Oral 240 ml IV Total 545 ml Output Urine Total 1250 ml # Bowel Movements 1 General Appearance: Alert, Awake, No Acute Distress, Afebrile Neuro: No Gross deficits (no new deficit) Eyes: PERRLA ENT: Normal Cardiovascular: Normal Rhythm & Peripheral Pulses Respiratory: No Respiratory Distress GI: Soft and Non-Tender Extremities: Edema, Other (contracted LE) Result Diagram: 04/05/1752104/05/17521 Assessment and Plan Problems: (1) UTI (urinary tract infection) due to urinary indwelling catheter Status: Acute Assessment & Plan: He presented with a fever to 102 and his WBC was 27. His urine has large leukocytes, as it usually does, but he was tender of the suprapubic region. He has a history of frequent urinary infections with MRSA and a fairly sensitive Pseudomonas. We have placed him on empiric treatment with ceftazidime and vancomycin. Dr. Glynn has seen the patient for hematuria from the urethra. 04/04: His Blood and Urine Cx is positive for GNR and he has h/o Pseudomona and VRE. I will continue VAnco and Ceftaz for now and wait for ID and Sensitivity. He can be transferred to Med/Surg floor. 04/05: His Urine and blood CX are positive for Klebsiella pneumonia and sensitive to Ceftaz. I will continue the Ceftaz (2) ARF (acute renal failure) Status: Acute Assessment & Plan: Secondary to sepsis. He is getting hydration. Creatinine is improving. 04/04: He is still mildly dehydrated and I will increase his fluids to ND with 20meq KCL at 80ml/h 04/05: His kidney function has been improving gradually with BUN/Cr 25/0.8. I will decrease his IVF (3) Sepsis Status: Resolved Assessment & Plan: He did present with fever, lactic acidosis, and an elevated WBC earlier today. He has been treated with IV fluids and moved to the ICU. BP is stable. Lactate has normalized. He is growing GNR from blood cultures. 04/05: Blood Cx are positive for Klebsiella pneumonia and sensitive to Ceftaz. He is off Vanco (4) MS (multiple sclerosis) Status: Chronic Assessment & Plan: He is on chronic treatment with Baclofen, which will be held. (5) Hypokalemia Status: Acute Assessment & Plan: I will prescribe KCL 20meq po x 2 doses and check her BMP in am. Central Venous Access Medical Necessity for Access: Hemodynamic Monitoring, IV Access, Medication Administration Time Spent on Plan of Care: < 30 min Copies to: CRISTA GARCIA MD Exam Sepsis Risk: No Definite Risk Problem Qualifiers (1) Sepsis: Sepsis type: sepsis due to unspecified organism Qualified Codes: A41.9 - Sepsis, unspecified organism HUMBERTO NEWTON MD Apr 05, 2017 15:34
[2017-04-05 15:51] VITALS: BP 158/103
[2017-04-05 19:42] VITALS: BP 152/82
[2017-04-05 22:34] VITALS: BP 150/87
[2017-04-06 03:07] VITALS: BP 124/86
[2017-04-06 07:10] VITALS: BP 152/83
[2017-04-06] MEDS: POTASSIUM CHL 20 MEQ TABCR PO SCH ×2 (08:36→16:32)
[2017-04-06] MEDS: PANTOPRAZOLE SOD 40 MG IV VIAL IVP SCH (08:36)
[2017-04-06] MEDS: ATENOLOL 25 MG TAB PO SCH (08:36)
[2017-04-06] MEDS: POLYETHYLENE GLYCOL 17 GM PKT PO SCH (08:36)
[2017-04-06] MEDS: PATCH REMOVAL 1 EA TP SCH (08:37)
[2017-04-06] MEDS: BACLOFEN 10 MG TAB PO SCH ×4 (08:40→20:22)
[2017-04-06] MEDS ORDERED: INFLUENZA VIRUS VAC 0.5 ML SYR IM ONLY ONE (09:00)
--- NOTE | 2017-04-06 09:31 | Hospitalist Progress Note ---
Subjective Progress Notes Subjective This patient was admitted for sepsis. He had no acute events overnight. Patient Complains of: Cardiovascular: No: Chest Pain Respiratory: No: Shortness of Breath Physical Exam Vital Signs Date Time Temp Pulse Resp B/P (MAP) Pulse Ox O2 Delivery O2 Flow Rate FiO2 04/06/17 07:17 91 Room Air 04/06/17 07:10 98.2 64 19 152/83 (106) 04/02/17 19:00 15.0 Intake and Output 04/07/17 07:00 Intake Total 240 ml Balance 240 ml Intake Oral 240 ml Cardiovascular: Regular Rate and Rhythm Respiratory: Clear to Auscultation Extremities: No Edema Integumentary: No Cyanosis Result Diagram: 04/05/17 0522 04/06/17 0515 Item Value Date Time Blood Culture - Final Resulted 04/02/171947 Blood Peripheral Draw Urine Culture - Preliminary Resulted 04/02/171933 Cath Urine Klebsiella Pneumoniae Blood Culture - Final Complete 04/02/171931 Blood Peripheral Draw Assessment and Plan Problems: (1) UTI (urinary tract infection) due to urinary indwelling catheter Status: Acute Assessment & Plan: He presented with a fever to 102 and his WBC was 27. His urine had large leukocytes, as it usually does, but he was tender of the suprapubic region. We have placed him on empiric treatment with ceftazidime and vancomycin. His blood has grown Klebsiella on both cultures and his urine is also growing Klebsiella and an additional gram negative pantera. He is now on monotherapy with ceftazidime. 04/04: His Blood and Urine Cx is positive for GNR and he has h/o Pseudomona and VRE. I will continue VAnco and Ceftaz for now and wait for ID and Sensitivity. He can be transferred to Med/Surg floor. 04/05: His Urine and blood CX are positive for Klebsiella pneumonia and sensitive to Ceftaz. I will continue the Ceftaz (2) ARF (acute renal failure) Status: Acute Assessment & Plan: Resolved with IV fluids. (3) Sepsis Status: Resolved Assessment & Plan: He did present with fever, lactic acidosis, and an elevated WBC earlier today. He was been treated with IV fluids and moved to the ICU. His lactate has improved and his WBC is trending down with antibiotics. (4) MS (multiple sclerosis) Status: Chronic Assessment & Plan: He is on chronic treatment with Baclofen, which has been restarted. (5) Hypokalemia Status: Acute Assessment & Plan: Resolved with supplementation. Central Venous Access Medical Necessity for Access: Hemodynamic Monitoring, IV Access, Medication Administration Exam Sepsis Risk: No Definite Risk Problem Qualifiers (1) Sepsis: Sepsis type: sepsis due to unspecified organism Qualified Codes: A41.9 - Sepsis, unspecified organism CRISTA KEATING DO Apr 06, 2017 09:31
[2017-04-06] MEDS: KCL/NS* 20 MEQ/1000 ML PREMIX 1,000 ML IV PRN (10:41)
--- NOTE | 2017-04-06 11:12 | Medical Nutrition Therapy ---
Nutrition Anthropometrics Height (Inches): 73.00 Height (Calculated Centimeters: 185.796502 Weight (Pounds): 181 Weight (Calculated Kilograms): 82.270 BMI Calculated: 24.54 Manish Nutrition Score: Probably Inadequate Manish Nutrition Risk Score: 10 Dietary Referral Nutrition Risk Factors: Diff. Swallowing Nutrition Risk Comment: Nutritional Diagnosis Nutritional Risk Acuity 2: GI Malabsorption (gastroparesis) Nutritional Risk Acuity 3: Fair Appetite Past Medical History: advanced MS, recurrent UTI, stroke, gastric outlet obstruction, gastroparesis Nutritional Acuity: 2-Moderate Nutrition Diagnosis: Inadequate Food Intake Nutrition Etiology: Physiological Causes Nutrition Problem/Etiology/Sym: Inadequate food intake possibly r/t combative behaviour with UTI AEB pt refusing meals. Energy Requirement: 2130 (M-SJ) Protein Requirement: 85 (1gm/kg) Fluid Requirement: 2250 (30ml/kg) Diet Type: Diet as Tolerated APOLINAR/REG Nutrition Intervention: Cont diet as ordered, Encourage intake, Between meal supplement Additional Diet Restrictions: PUT PROTEIN POWDER IN APPROPRIATE FOODS Diet Comment To RSA: LIMIT HIGH FIBER AND HIGH FAT FOODS Nutrition Monitoring & Eval Nutrition Goals: Eat 75-100% Meal Nutrition Follow-Up: Fair Intake RD Patient Assessment Time: [address] Assessment Type: RD Re-Assessment Patient Nutrition Acuity: 2-Moderate Follow Up Date: Apr 10, 2017 Nutritional Comment: 04/03 Pt admitted for UTI and sepsis. Pt also has AMS and is non-responsive at this time. Pt was recently discharged on Mar.14 for UTI. Pt wt is 186# which is up 10# from last admission. BMI 24.6, still within normal limits. Notable labs include low H/H, Na 136, BUN 31, Cr 1.4, glu 117, total pro 5.7, and alb 2.6. Pt is APOLINAR with no intake documented. Will continue to monitor labs, intakes, etc. 04/03 Nursing admission assessment reports difficulty swallowing. Cannot find hx of difficulty swallowing during last admission. Pt was on reg diet and had 100% average intake during last admission. Will follow up with pt as he becomes more responsive. If unable to communicate, pt may benefit from swallow eval. 04/04 Diet advanced to regular however pt has been refusing meals. Nursing reporting behaviour is combative. Will offer a nutr supplement if pt cont to refuse meals. BUN cont elevated at 30. Creatinine is WNR. Alb 2.5. K+ 3.3 and pt is recieving a supplment. Pt has hx of gastroparesis. Will discourage high fiber and high fat foods. Wt up 3 # with 2+ edema to lt foot noted. Sepsis is resolved. Will cont to monitor and encourage intake. 04/06 ARF, sepsis and hypokalemia resolved. Nursing not reporting pt combative today. Intake has improved and averaging 70% past 2 days. Alb cont low at 2.5. Will put protein powder in appropriate foods. Cont to monitor. LEÓN LAROSE Apr 06, 2017 11:12
[2017-04-06 11:31] VITALS: BP 126/90
[2017-04-06 15:08] VITALS: BP 133/91
[2017-04-06] MEDS ORDERED: ZOLPIDEM TARTRATE 10 MG TAB PO PRN (17:10)
[2017-04-06 20:24] VITALS: BP 128/78
[2017-04-07 05:33] VITALS: BP 131/82
[2017-04-07 05:48] LABS: PLATELET COUNT, AUTOMATED 222 K/uL (150-450)
[2017-04-07] MEDS: KCL/NS* 20 MEQ/1000 ML PREMIX 1,000 ML IV PRN (07:03)
[2017-04-07] MEDS ORDERED: CEF300 PO (08:19)
[2017-04-07 08:55] VITALS: BP 134/72
[2017-04-07] MEDS: POLYETHYLENE GLYCOL 17 GM PKT PO SCH (09:00)
[2017-04-07] MEDS: BACLOFEN 10 MG TAB PO SCH (09:07)
[2017-04-07] MEDS: PANTOPRAZOLE SOD 40 MG IV VIAL IVP SCH (09:07)
[2017-04-07] MEDS: POTASSIUM CHL 20 MEQ TABCR PO SCH (09:07)
[2017-04-07] MEDS: ATENOLOL 25 MG TAB PO SCH (09:07)
--- NOTE | 2017-04-07 14:12 | Hospitalist Depart ---
Discharge Summary Reason for Hosp/Final Diag: (1) UTI (urinary tract infection) due to urinary indwelling catheter Status: Acute Hospital Course & Plan: is a 67 y.o. male with PMH of Advance MS, Recurrent UTI, presented to the emergency room after [facility] to [facility] a [facility] He was treated for sepsis and ADAN in the ICU setting. He is currently on Ceftaz and Vancomycin and he is afebrile today. His K level is low3.3. His WBC came down from 33K to 15K and BUN/Cr is 30 /1.0. He seems more alert. 04/05: He is more alert and awake. He is afebrile and hemodynamically stable. He is off Vancomycin and taking Ceftaz for his positive blood and urine CX for Klebsiella pneumonia. His BP is elevated today 160/90. His K level is low 3.4. 04/06: He presented with a fever to 102 and his WBC was 27. His urine had large leukocytes, as it usually does, but he was tender of the suprapubic region. We have placed him on empiric treatment with ceftazidime and vancomycin. His blood has grown Klebsiella on both cultures and his urine is also growing Klebsiella and an additional gram negative pantera. He is now on monotherapy with ceftazidime. 04/07: He is back to his baseline status and without fever. He is hemodynamically stable. He is still on Ceftaz and I will change to PO Cefdinir 300mg po bid for8 more days for his B&UCX positive for K.Pneumonia and he is responding. He is againgn growing GNR in the UCX but ID is pending. [facility] should follow the ID and sensitivity. Most likely it is sensitive to Cefdinir and he is afebrile and his WBC are normal. (2) ARF (acute renal failure) Status: Resolved Hospital Course & Plan: Resolved with IV fluids. (3) Sepsis Status: Resolved Hospital Course & Plan: He did present with fever, lactic acidosis, and an elevated WBC earlier today. He was been treated with IV fluids and moved to the ICU. His lactate has improved and his WBC is trending down with antibiotics. (4) MS (multiple sclerosis) Status: Chronic Hospital Course & Plan: He is on chronic treatment with Baclofen, which has been restarted. (5) Hypokalemia Status: Resolved Hospital Course & Plan: Resolved with supplementation. K is 3.8 Departure Weight (Pounds): 181 Weight (Ounces): 6.0 Result Diagram: 04/07/1752404/06/17514 Condition: Improved Discharge: Residential Discharge Code Status: DNR, DNI Time Spent: < 30 min Discharge Instructions Home Meds Active Scripts Pantoprazole Sodium (PANTOPRAZOLE SODIUM) 40 Mg Tablet.dr, 40 MG PO QDAY for 120 Days, Clear with patient's PCP or Dr. Olson before it is weaned and then stopped Prov:JASKARAN CULLEN MD 12/23/16 Potassium Chloride (KLOR-CON 10) 10 Meq Tablet.er, 10 MEQ PO DAILY, #0 Prov:JASKARAN CULLEN MD 03/06/16 Magnesium Hydroxide (MILK OF MAGNESIA) 30 Ml Susp, 30 ML PO BID Y for CONSTIPATION, #1 BOTTLE Prov:PATRIZIA BRUNER MD 08/24/14 Reported Medications Cefdinir 300 Mg Cap (OMNICEF 300 MG CAP (OR EQUIV)) 300 Mg Cap, 300 MG PO BID for 8 Days, CAP 04/07/17 Lactose-Free Food (ENSURE PLUS) 237 Ml Liquid, 237 ML PO BID 04/03/17 Cholecalciferol (Vitamin D3) (VITAMIN D3) 1,000 Unit Tablet, 1000 UNIT PO DAILY , TAB 04/03/17 Lactobacillus Combo No.13 (Probiotic Pearls Complete) 1 Each Capsule.dr, 2 CAP PO DAILY 04/03/17 Duloxetine Hcl (CYMBALTA) 30 Mg Capsule.dr, 30 MG PO QDAY, #30 CAP 04/03/17 Cranberry Fruit Concentrate (CRANBERRY) 450 Mg Tablet, 450 MG PO DAILY 04/03/17 Fentanyl (Fentanyl) 1 Each Patch.td72, 12 TD q72hr 04/02/17 Melatonin (MELATONIN) 3 Mg Tablet, 3 MG PO QHS 03/11/17 Docusate Sodium (DOCU LIQUID) 50 Mg/5 Ml Liquid, 10 ML PO DAILY 11/30/16 Ondansetron Hcl (ZOFRAN) 4 Mg Tablet, 8 MG PO Q4H Y for NAUSEA, TAB 08/16/16 Hydrocodone Bit/Acetaminophen (NORCO 5-325 TABLET) 1 Each Tablet, 1 EACH PO BID Y for PAIN, TAB 08/16/16 Multivitamin (MULTI VITAMIN DAILY) 1 Each Tablet, 1 EACH PO QDAY 02/29/16 Oxybutynin Chloride (OXYBUTYNIN CHLORIDE ER) 10 Mg Tab.er.24, 10 MG PO QDAY, TAB.SR 02/29/16 Baclofen (BACLOFEN) 20 Mg Tablet, 20 MG PO QID, #15 TAB 08/15/14 Acetaminophen (ACETAMINOPHEN) 500 Mg Tablet, 500 MG PO TID Y for PRN, TAB 08/15/14 Bisacodyl (BISACODYL) 10 Mg Supp.rect, 10 MG RC BID Y for CONSTIPATION, SUPP.RECT 05/02/13 Discontinued Reported Medications Promethazine Hcl (PROMETHAZINE HCL) 25 Mg Tablet, 25 MG PO Q8H Y for NAUSEA, TAB 04/02/17 Cholecalciferol (Vitamin D3) (VITAMIN D) 1,000 Unit Tablet, 1000 UNIT PO QDAY 02/29/16 Lactobacillus Acidophilus (ACIDOPHILUS) 1 Each Capsule, 2 EACH PO QDAY, CAPSULE 11/03/15 Discontinued Scripts Polyethylene Glycol 3350 (POLYETHYLENE GLYCOL 3350) 17 Gm Powd, 17 GM PO QDAY, # 1 BOTTLE Prov:PATRIZIA BRUNER MD 08/24/14 Linezolid (ZYVOX) 600 Mg Tab, 600 MG PO BID, #8 TAB Prov:CRISTA KEATING DO 03/14/17 Fentanyl 50 Mcg Patch (FENTANYL 50 MCG PATCH) 1 Each Patch.td72, 50 MCG TD Q72H@ 0900, #1 PATCH Prov:CRISTA KEATING DO 03/14/17 Fentanyl 25 Mcg Patch (FENTANYL 25 MCG PATCH) 1 Each Patch.td72, 25 MCG TD Q72H@ 0900, #1 PATCH Prov:CRISTA KEATING DO 03/14/17 Diet: Regular Activity: As Tolerated Special Instructions: Physician to follow-up urine culture result, gram-negative pantera. Currently pt on Cefdinir 300mg BID, continue 8 days. Physician to follow-up home meds. Copies to: [facility] Venous Thromboembolism Antithrombotics Is Pt On Any Antithrombotics?: No Problem Qualifiers (1) Sepsis: Sepsis type: sepsis due to unspecified organism Qualified Codes: A41.9 - Sepsis, unspecified organism HUMBERTO NEWTON MD Apr 07, 2017 14:12
[2017-04-08] MEDS ORDERED: FENTANYL PATCH REMOVAL TP SCH (09:00)
== END 2017-04-07 11:50 | DRG 698 ==
LOC: ER 19:10 → MED 20:34 → ICU 04-03 07:00 → MED 04-04 15:40
PROVIDERS: ADMIT Family Medicine; ATTEND Family Medicine
DX: T83.511A Infection and inflammatory reaction due to indwelling urethral catheter, initial encounter (principal); A41.9 Sepsis, unspecified organism; R65.20 Severe sepsis without septic shock; N17.9 Acute kidney failure, unspecified; N39.0 Urinary tract infection, site not specified; G35 Multiple sclerosis; Z66 Do not resuscitate; R31.9 Hematuria, unspecified; E87.6 Hypokalemia; E86.0 Dehydration; B96.1 Klebsiella pneumoniae [K. pneumoniae] as the cause of diseases classified elsewhere; Y84.6 Urinary catheterization as the cause of abnormal reaction of the patient, or of later complication, without mention of misadventure at the time of the procedure; Z87.891 Personal history of nicotine dependence; Z86.73 Personal history of transient ischemic attack (TIA), and cerebral infarction without residual deficits
CPT/HCPCS: 36415; 71045; 80202; 81001; 82040; 82247; 82310; 82374; 82435; 82565; 82947; 83605; 84075; 84132; 84155; 84295; 84450; 84460; 84484; 84520; 85025; 86140; 87040; 87077; 87088; 87186; 87502; 93005; 99285; A4338; C9113; J0131; J0713; J3370; J3480; J3490; J7030; J7050

== ENCOUNTER → 2017-04-02 | Outpatient (CLI) | payer MEDICARE, MEDICAID ==
[2017-04-03 10:55] VITALS: BMI 24.5
== END ==
LOC: AMB 18:40
PROVIDERS: ATTEND Nurse Practitioner
DX: R41.82 Altered mental status, unspecified (principal); I10 Essential (primary) hypertension; R06.82 Tachypnea, not elsewhere classified; R09.02 Hypoxemia
CPT/HCPCS: A0425; A0427

== ENCOUNTER → 2017-04-02 | Outpatient (REF) | payer MEDICARE ==
[2017-03-12 16:21] VITALS: BMI 23.2
[~2017-04-02] MED LIST changes: -CEF300 PO
[2017-04-02 17:12] LABS: PLATELET COUNT, AUTOMATED 217 K/uL (150-450)
== END ==
LOC: ZZLCC 16:50
PROVIDERS: ATTEND Family Medicine
DX: R41.82 Altered mental status, unspecified (principal)
CPT/HCPCS: 82310; 82374; 82435; 82565; 82947; 84132; 84295; 84520; 85025

== ENCOUNTER → 2017-04-07 | Outpatient (CLI) | payer MEDICARE, MEDICAID ==
[2017-04-03 10:55] VITALS: BMI 24.5
[~2017-04-07] MED LIST changes: +CEF300 PO; +LACT1CAP17 PO; +PROM-110 PO
== END ==
LOC: AMB 11:46
PROVIDERS: ATTEND Nurse Practitioner
DX: G35 Multiple sclerosis (principal); Z74.01 Bed confinement status
CPT/HCPCS: A0425; A0428

== ENCOUNTER → 2017-04-14 | Outpatient (REF) | payer MEDICARE, MEDICAID ==
[2017-04-03 10:55] VITALS: BMI 24.5
[2017-04-14 22:57] LABS: PLATELET COUNT, AUTOMATED 606 K/uL (150-450)
== END ==
LOC: ZZLCC 22:36
PROVIDERS: ATTEND Family Medicine
DX: R46.4 Slowness and poor responsiveness (principal)
CPT/HCPCS: 81001; 82310; 82374; 82435; 82565; 82947; 84132; 84295; 84520; 85025

== ENCOUNTER → 2017-04-21 | Outpatient (REF) | payer MEDICARE, MEDICAID ==
[2017-04-03 10:55] VITALS: BMI 24.5
== END ==
LOC: ZZLCC 18:53
PROVIDERS: ATTEND Family Medicine
DX: R41.82 Altered mental status, unspecified (principal)
CPT/HCPCS: 81001; 82310; 82374; 82435; 82565; 82947; 84132; 84295; 84520; 85027; 87088

== ENCOUNTER 2017-05-12 13:31 | Emergency (ER) | payer MEDICARE, MEDICAID ==
[2017-04-03 10:55] VITALS: BMI 24.5
[~2017-05-12 13:31] MED LIST changes: -CLON0.255 PO; -DOCU-416 PO; -PROM25SU3 RC
--- NOTE | 2017-05-12 13:37 | ER Report ---
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 From [facility]. Study ordered by Dr. Thierno Martinez. CHIEF COMPLAINT: Vomiting HISTORY OF PRESENT ILLNESS: 67-year-old male per custodial report or presents with multiple episodes of diarrhea that resolved followed by multiple episodes of vomiting. He was sent for abdominal films which showed signs of obstruction was referred directly to the emergency department by his doctor Dr. Martinez. He complains of pain in the lower region of the abdomen. He does not recall the diarrhea does not recall vomiting but he says he does not having severe pain at this time he does not recall his last bowel movement. He denies nausea at this time. Initially denied pain during exam but admits to pain if directly asked. He does not seem to have severe pain. No seizure activity. No known fevers. Dr Martinez called to give report. REVIEW OF SYSTEMS: Constitutional: No fever, no chills. Eyes: No discharge. ENT: No sore throat. Cardiovascular: No chest pain, no palpitations. Respiratory: No cough, no shortness of breath. Gastrointestinal: No bloody stools Genitourinary: No hematuria. Musculoskeletal: No back pain. Skin: No rashes. Neurological: No headache. Allergies: Coded Allergies: No Known Drug Allergies (Verified , 02/12/17) Home Meds Active Scripts Pantoprazole Sodium (PANTOPRAZOLE SODIUM) 40 Mg Tablet.dr, 40 MG PO QDAY for 120 Days, Clear with patient's PCP or Dr. Olson before it is weaned and then stopped Prov:JASKARAN CULLEN MD 12/23/16 Potassium Chloride (KLOR-CON 10) 10 Meq Tablet.er, 10 MEQ PO DAILY, #0 Prov:JASKARAN CULLEN MD 03/06/16 Magnesium Hydroxide (MILK OF MAGNESIA) 30 Ml Susp, 30 ML PO BID Y for CONSTIPATION, #1 BOTTLE Prov:PATRIZIA BRUNER MD 08/24/14 Reported Medications Cefdinir 300 Mg Cap (OMNICEF 300 MG CAP (OR EQUIV)) 300 Mg Cap, 300 MG PO BID for 8 Days, CAP 04/07/17 Lactose-Free Food (ENSURE PLUS) 237 Ml Liquid, 237 ML PO BID 04/03/17 Cholecalciferol (Vitamin D3) (VITAMIN D3) 1,000 Unit Tablet, 1000 UNIT PO DAILY , TAB 04/03/17 Lactobacillus Combo No.13 (Probiotic Pearls Complete) 1 Each Capsule.dr, 2 CAP PO DAILY 04/03/17 Duloxetine Hcl (CYMBALTA) 30 Mg Capsule.dr, 30 MG PO QDAY, #30 CAP 04/03/17 Cranberry Fruit Concentrate (CRANBERRY) 450 Mg Tablet, 450 MG PO DAILY 04/03/17 Fentanyl (Fentanyl) 1 Each Patch.td72, 12 TD q72hr 04/02/17 Melatonin (MELATONIN) 3 Mg Tablet, 3 MG PO QHS 03/11/17 Docusate Sodium (DOCU LIQUID) 50 Mg/5 Ml Liquid, 10 ML PO DAILY 11/30/16 Ondansetron Hcl (ZOFRAN) 4 Mg Tablet, 8 MG PO Q4H Y for NAUSEA, TAB 08/16/16 Hydrocodone Bit/Acetaminophen (NORCO 5-325 TABLET) 1 Each Tablet, 1 EACH PO BID Y for PAIN, TAB 08/16/16 Multivitamin (MULTI VITAMIN DAILY) 1 Each Tablet, 1 EACH PO QDAY 02/29/16 Oxybutynin Chloride (OXYBUTYNIN CHLORIDE ER) 10 Mg Tab.er.24, 10 MG PO QDAY, TAB.SR 02/29/16 Baclofen (BACLOFEN) 20 Mg Tablet, 20 MG PO QID, #15 TAB 08/15/14 Acetaminophen (ACETAMINOPHEN) 500 Mg Tablet, 500 MG PO TID Y for PRN, TAB 08/15/14 Bisacodyl (BISACODYL) 10 Mg Supp.rect, 10 MG RC BID Y for CONSTIPATION, SUPP.RECT 05/02/13 Hx Smoking: No Smoking Status: Former Smoker Exposure to Second Hand Smoke?: No Hx Substance Use Disorder: Yes (POT) Hx Alcohol Use: No Constitutional Vital Sign - Last 24 Hours 05/12/17 05/12/17 05/12/17 05/12/17 13:35 13:35 14:01 14:17 Pulse 89 89 Resp 20 B/P (MAP) 133/91 133/91 (105) 133/88 (103) Pulse Ox 90 89 O2 Delivery Room Air 05/12/17 05/12/17 05/12/17 14:30 14:31 15:30 B/P (MAP) 140/86 (104) 151/87 (108) Pulse Ox 86 Physical Exam General Appearance: The patient is alert, has no immediate need for airway protection and no signs of toxicity. No acute distress Eyes: Pupils equal and round no pallor or injection. ENT, Mouth: Mucous membranes are moist. Respiratory: There are no retractions, lungs are clear to auscultation. Cardiovascular: Regular rate and rhythm. No murmurs gallops or rubs Gastrointestinal: Abdomen is distended and mildly tender diffusely in the lower region Neurological: Normal baseline neuro exam Skin: Warm and dry, no rashes. Musculoskeletal: Neck is supple non tender. Extremities are nontender, nonswollen and have full range of motion. DIFFERENTIAL DIAGNOSIS: After history and physical exam differential diagnosis was considered for small bowel obstruction, obstipation, fecal impaction, adhesions Medical Decision Making Data Points Result Diagram: 05/12/17 1403 05/12/17 1403 Laboratory Hematology Test 05/12/17 14:03 05/12/17 14:54 Red Blood Count 4.93 M/uL (4.00-5.60) Mean Corpuscular Volume 79.4 fL (80.0-96.0) Mean Corpuscular Hemoglobin 25.9 pg (26.0-33.0) Mean Corpuscular Hemoglobin Concent 32.6 g/dL (32.0-36.0) Red Cell Distribution Width 18.7 % (11.5-14.5) Mean Platelet Volume 8.0 fL (7.2-11.1) Neutrophils (%) (Auto) 78.0 % (39.4-72.5) Lymphocytes (%) (Auto) 14.5 % (17.6-49.6) Monocytes (%) (Auto) 6.7 % (4.1-12.4) Eosinophils (%) (Auto) 0.1 % (0.4-6.7) Basophils (%) (Auto) 0.7 % (0.3-1.4) Nucleated RBC Relative Count (auto) 0.0 /100WBC Neutrophils # (Auto) 10.1 K/uL (2.0-7.4) Lymphocytes # (Auto) 1.9 K/uL (1.3-3.6) Monocytes # (Auto) 0.9 K/uL (0.3-1.0) Eosinophils # (Auto) 0.0 K/uL (0.0-0.5) Basophils # (Auto) 0.1 K/uL (0.0-0.1) Nucleated RBC Absolute Count (auto) 0.00 K/uL Peripheral Blood Smear No Y/N Sodium Level 140 mmol/L (137-145) Potassium Level 4.1 mmol/L (3.5-5.0) Chloride Level 102 mmol/L (98-107) Carbon Dioxide Level 20 mmol/L (22-30) Blood Urea Nitrogen 34 mg/dl (9-21) Creatinine 1.00 mg/dl (0.66-1.25) Glomerular Filtration Rate Calc > 60.0 Random Glucose 112 mg/dl (75-110) Calcium Level 9.5 mg/dl (8.4-10.2) Total Bilirubin 0.6 mg/dl (0.2-1.3) Aspartate Amino Transf (AST/SGOT) 17 U/L (0-35) Alanine Aminotransferase (ALT/SGPT) 24 U/L (0-56) Alkaline Phosphatase 122 U/L (0-126) Total Protein 8.5 gm/dl (6.3-8.2) Albumin 4.2 g/dl (3.5-5.0) Urine Color Yellow Urine Clarity Turbid Urine pH 5.0 pH (4.8-9.5) Urine Specific [place] 1.018 Urine Protein 100 mg/dL (NEGATIVE) Urine Glucose (UA) Negative mg/dL (NEGATIVE) Urine Ketones Negative mg/dL (NEGATIVE) Urine Blood Large (NEGATIVE) Urine Nitrite Negative (NEGATIVE) Urine Bilirubin Negative (NEGATIVE) Urine Urobilinogen Negative mg/dL (0.2-1.9) Urine Leukocyte Esterase Large (NEGATIVE) Urine RBC 207 /HPF (0-2/HPF) Urine WBC 3263 /HPF (0-5/HPF) Urine WBC Clumps Many /HPF Urine Squamous Epithelial Cells None /LPF (NONE-FEW) Urine Bacteria Few /HPF (NONE-FEW) Urine Mucus Few /HPF (NONE-FEW) Urine Yeast (Budding) Many /HPF Chemistry Test 05/12/17 14:03 05/12/17 14:54 White Blood Count 13.0 k/uL (4.5-11.0) Red Blood Count 4.93 M/uL (4.00-5.60) Hemoglobin 12.8 g/dL (14.0-18.0) Hematocrit 39.2 % (42.0-52.0) Mean Corpuscular Volume 79.4 fL (80.0-96.0) Mean Corpuscular Hemoglobin 25.9 pg (26.0-33.0) Mean Corpuscular Hemoglobin Concent 32.6 g/dL (32.0-36.0) Red Cell Distribution Width 18.7 % (11.5-14.5) Platelet Count 370 K/uL (150-450) Mean Platelet Volume 8.0 fL (7.2-11.1) Neutrophils (%) (Auto) 78.0 % (39.4-72.5) Lymphocytes (%) (Auto) 14.5 % (17.6-49.6) Monocytes (%) (Auto) 6.7 % (4.1-12.4) Eosinophils (%) (Auto) 0.1 % (0.4-6.7) Basophils (%) (Auto) 0.7 % (0.3-1.4) Nucleated RBC Relative Count (auto) 0.0 /100WBC Neutrophils # (Auto) 10.1 K/uL (2.0-7.4) Lymphocytes # (Auto) 1.9 K/uL (1.3-3.6) Monocytes # (Auto) 0.9 K/uL (0.3-1.0) Eosinophils # (Auto) 0.0 K/uL (0.0-0.5) Basophils # (Auto) 0.1 K/uL (0.0-0.1) Nucleated RBC Absolute Count (auto) 0.00 K/uL Peripheral Blood Smear No Y/N Glomerular Filtration Rate Calc > 60.0 Calcium Level 9.5 mg/dl (8.4-10.2) Total Bilirubin 0.6 mg/dl (0.2-1.3) Aspartate Amino Transf (AST/SGOT) 17 U/L (0-35) Alanine Aminotransferase (ALT/SGPT) 24 U/L (0-56) Alkaline Phosphatase 122 U/L (0-126) Total Protein 8.5 gm/dl (6.3-8.2) Albumin 4.2 g/dl (3.5-5.0) Urine Color Yellow Urine Clarity Turbid Urine pH 5.0 pH (4.8-9.5) Urine Specific [place] 1.018 Urine Protein 100 mg/dL (NEGATIVE) Urine Glucose (UA) Negative mg/dL (NEGATIVE) Urine Ketones Negative mg/dL (NEGATIVE) Urine Blood Large (NEGATIVE) Urine Nitrite Negative (NEGATIVE) Urine Bilirubin Negative (NEGATIVE) Urine Urobilinogen Negative mg/dL (0.2-1.9) Urine Leukocyte Esterase Large (NEGATIVE) Urine RBC 207 /HPF (0-2/HPF) Urine WBC 3263 /HPF (0-5/HPF) Urine WBC Clumps Many /HPF Urine Squamous Epithelial Cells None /LPF (NONE-FEW) Urine Bacteria Few /HPF (NONE-FEW) Urine Mucus Few /HPF (NONE-FEW) Urine Yeast (Budding) Many /HPF Urinalysis Test 05/12/17 14:54 Urine Color Yellow Urine Clarity Turbid Urine pH 5.0 pH (4.8-9.5) Urine Specific [place] 1.018 Urine Protein 100 mg/dL (NEGATIVE) Urine Glucose (UA) Negative mg/dL (NEGATIVE) Urine Ketones Negative mg/dL (NEGATIVE) Urine Blood Large (NEGATIVE) Urine Nitrite Negative (NEGATIVE) Urine Bilirubin Negative (NEGATIVE) Urine Urobilinogen Negative mg/dL (0.2-1.9) Urine Leukocyte Esterase Large (NEGATIVE) Urine RBC 207 /HPF (0-2/HPF) Urine WBC 3263 /HPF (0-5/HPF) Urine WBC Clumps Many /HPF Urine Squamous Epithelial Cells None /LPF (NONE-FEW) Urine Bacteria Few /HPF (NONE-FEW) Urine Mucus Few /HPF (NONE-FEW) Urine Yeast (Budding) Many /HPF ED Course/Re-evaluation ED Course Much improved after fecal disimpaction, had large bowel movement in the ED. Case discussed with surgery, bowel is likely to decompress after fecal impaction removed. Has seen patient in the ED. Pt is safe for discharge. Decision to Disposition Date: May 12, 2017 Decision to Disposition Time: 18:00 Depart Departure Latest Vital Signs Vital Signs Date Time Temp Pulse Resp B/P (MAP) Pulse Ox O2 Delivery O2 Flow Rate FiO2 05/12/17 15:30 151/87 (108) 05/12/17 14:31 86 05/12/17 14:01 89 05/12/17 13:35 20 Room Air Core Temperature (Celsius): 36.9 Impression: Primary Impression: Fecal impaction Condition: Improved Disposition: ASSISTED LIVING FACILITY Patient Instructions: Fecal Impaction (ED) HARRISON PEDRAZA MD May 12, 2017 13:37
[2017-05-12] MEDS ORDERED: NS(*) 0.9% 1000 ML BAG 1,000 ML IV ONE (13:50)
[2017-05-12] MEDS ORDERED: ONDANSETRON 4 MG/2 ML VIAL IVP ONE (13:50)
[2017-05-12 14:12] LABS: PLATELET COUNT, AUTOMATED 370 K/uL (150-450)
[2017-05-12] MEDS ORDERED: IOPAMIDOL 76% 75 ML INFUS BTL 75 ML ONE (14:18)
--- NOTE | 2017-05-12 16:06 | RADIOLOGY IMAGING REPORT ---
[place] [facility] [place] Jared Hammond : 1950 MR: [id number] V: [id number] EXAM DATE: ORDERING PHYSICIAN: HARRISON PEDRAZA TECHNOLOGIST: Location: [facility] [place] Patient: Jared Hammond : 1950 Visit/Account:[id number] Date of Sevice: 05/12/2017 EXAMINATION: CT abdomen with IV contrast CT pelvis with IV contrast HISTORY: Small bowel obstruction. COMPARISON: 03/11/2017. TECHNIQUE: Axial images were taken through the abdomen and pelvis with intravenous contrast. Sagitt al and coronal reformatted images are also submitted. CONTRAST: 75 mL of IV [id number] One of the following dose optimization techniques was utilized in the performance of this exam: Autom ated exposure control; adjustment of the mA and/or kV according to the patient's size; or use of an i terative reconstruction technique. Specific details can be referenced in the facility's radiology C T exam operational policy. FINDINGS: Liver/biliary: Negative. Pancreas: Negative. Spleen: Negative. Adrenal glands: Negative. Kidneys: Moderate right and mild left hydronephrosis, similar on the right to previous examination, a nd decreased on the left since previous examination. Small nonobstructive calculi in the kidneys, sim ilar to previous exam. Pelvic structures: Suprapubic catheter. Bowel: The rectum and distal sigmoid colon are prominently distended by a large amount of stool. Ther e is prominent gaseous distention of the remainder of the colon with small to moderate amount of stoo l elsewhere in the colon. The small bowel is normal caliber. No obvious focal bowel wall thickening. Peritoneum/retroperitoneum/mesenteries: Negative. No intraperitoneal free air or free fluid. Vessels: Infrarenal fusiform abdominal aortic aneurysm measuring 4 cm in diameter, similar to previou s examination. There is moderate plaque along the aorta and iliac arteries. Musculoskeletal/body wall: Subcutaneous edema in the gluteal soft tissues bilaterally and proximal th ighs bilaterally, unchanged. The bones are diffusely osteopenic. Advanced disc degenerative changes a t L4-5 and L5-S1. Degenerative changes of both hip joints, severe on the right. Small metallic fragme nt in the left upper quadrant of the abdomen adjacent to the stomach and spleen, unchanged. Fat-conta ining left inguinal hernia. Lymph node assessment: Negative. Lower chest: Negative. IMPRESSION: Prominent distention of the rectum and sigmoid colon by a large amount of stool. There is prominent g aseous distention of the remainder of the large bowel and small to moderate stool content elsewhere i n the large bowel. These findings are suggestive of fecal impaction at the rectum. No evidence of small bowel obstruction. Moderate right and mild left hydronephrosis, similar to previous examination and decreased on the lef t since the previous examination. Unchanged fusiform infrarenal abdominal aortic aneurysm measuring 4 cm in diameter. Other nonacute findings as detailed in the body of the report. Report Dictated By: Rajendra Barclay MD at 05/12/2017 3:35 PM Report E-Signed By: Rajendra Barclay MD at 05/12/2017 4:01 PM WSN:[id number]
[2017-05-12] MEDS ORDERED: MIDAZOLAM 2 MG/2 ML VIAL IVP ONE (17:10)
[2017-05-12] MEDS ORDERED: MAGNESIUM CITRATE 300 ML BTL PO ONE (17:40)
[2017-05-12 17:55] VITALS: BP 141/98
== END 2017-05-12 18:07 | disposition home or self-care (01) ==
LOC: ER 13:36
DX: K56.41 Fecal impaction (principal)
CPT/HCPCS: 74019; 74177; 81001; 85025; 96361; 96374; 96375; 99284; A9270; J2250; J2405; J7030; Q9967; 82040; 82247; 82310; 82374; 82435; 82565; 82947; 84075; 84132; 84155; 84295; 84450; 84460; 84520

== ENCOUNTER → 2017-05-12 | Outpatient (CLI) | payer MEDICARE, MEDICAID ==
[2017-04-03 10:55] VITALS: BMI 24.5
[~2017-05-12] MED LIST changes: +BISM262T97 PO; +CLON0.255 PO; +DOCU-416 PO; -PEP PO; +PROM25SU3 RC
== END ==
LOC: AMB 17:48
PROVIDERS: ATTEND Nurse Practitioner
DX: G35 Multiple sclerosis (principal)
CPT/HCPCS: A0425; A0428

== ENCOUNTER → 2017-05-12 | Outpatient (CLI) | payer MEDICARE, MEDICAID ==
[2017-04-03 10:55] VITALS: BMI 24.5
[~2017-05-12] MED LIST changes: -BISM262T97 PO; -CLON0.255 PO; -DOCU-416 PO; +PEP PO; -PROM25SU3 RC
--- NOTE | 2017-05-12 13:49 | RADIOLOGY IMAGING REPORT ---
[place] [facility] [place] : 1950 MR: [id number] V: [id number] EXAM DATE: ORDERING PHYSICIAN: HEMA MARTINEZ TECHNOLOGIST: Location: [facility] [place] Patient: Jared Hammond : 1950 Visit/Account:[id number] Date of Sevice: 05/12/2017 Exam type: ABDOMEN AP AND ERECT/DECUB History: Abnormal bowel sounds Comparison: March 13, 2017 Findings: There are is marked gaseous distention throughout the colon with a severe amount of stool seen in the right-sided the colon and in the rectum consistent with obstipation. There also appears to be moder ate small bowel distention. There is no evidence of free intraperitoneal air. Small amount of radio paque material projects over the left upper quadrant of abdomen similar to the prior study.. IMPRESSION: 1. There is marked distention of the colon with air and fecal material consistent with obstipation There also appears to be moderate distention of small bowel loops. This may represent a low-lying ob struction versus ileus Findings were discussed by phone with Dr. Hema Martinez at the time the examination Report Dictated By: Kaylie Soria MD at 05/12/2017 1:42 PM Report E-Signed By: Kaylie Soria MD at 05/12/2017 1:45 PM [id number]
== END ==
LOC: RAD 13:06
PROVIDERS: ATTEND Family Medicine
DX: K59.00 Constipation, unspecified (principal); K31.9 Disease of stomach and duodenum, unspecified; K63.89 Other specified diseases of intestine
CPT/HCPCS: 74019

== ENCOUNTER → 2017-05-12 | Outpatient (CLI) | payer MEDICARE, MEDICAID ==
[2017-04-03 10:55] VITALS: BMI 24.5
[~2017-05-12] MED LIST changes: +BISM262T97 PO; +CLON0.255 PO; +DOCU-416 PO; -PEP PO; +PROM25SU3 RC
== END ==
LOC: AMB 12:49
PROVIDERS: ATTEND Nurse Practitioner
DX: R14.0 Abdominal distension (gaseous) (principal); R10.9 Unspecified abdominal pain
CPT/HCPCS: A0425; A0428

== ENCOUNTER → 2017-05-24 | Outpatient (REF) | payer MEDICARE, MEDICAID ==
[2017-04-03 10:55] VITALS: BMI 24.5
[~2017-05-24] MED LIST changes: +CLON0.255 PO; +DOCU-416 PO; +PROM25SU3 RC
== END ==
LOC: ZZLCC 10:29
PROVIDERS: ATTEND Family Medicine
DX: N39.0 Urinary tract infection, site not specified (principal); Z87.440 Personal history of urinary (tract) infections
CPT/HCPCS: 81001; 85027

== ENCOUNTER 2017-05-25 00:20 | Emergency (ER) | payer MEDICARE, MEDICAID ==
[2017-04-03 10:55] VITALS: Wt 82.3 kg
[~2017-05-25 00:20] MED LIST changes: -CLON0.255 PO; -DOCU-416 PO; -PROM25SU3 RC
--- NOTE | 2017-05-25 00:32 | ER Report ---
History and Physical Time Seen By MD: 00:31 HPI/ROS CHIEF COMPLAINT: Vomiting, abdominal distention HISTORY OF PRESENT ILLNESS: 67-year-old with advanced MS. Sent in from the long-term by EMS with concerns plates of vomiting for several hours and abdominal distention. Patient has a history of fecal impaction noted 2 weeks ago here on CT scan. Patient does not recall when he sat a bowel movement. REVIEW OF SYSTEMS: Respiratory: No cough, no dyspnea. Cardiovascular: No chest pain, no palpitations. Gastrointestinal: As above Musculoskeletal: No back pain. Allergies: Coded Allergies: No Known Drug Allergies (Verified , 02/12/17) Home Meds Active Scripts Pantoprazole Sodium (PANTOPRAZOLE SODIUM) 40 Mg Tablet.dr, 40 MG PO QDAY for 120 Days, Clear with patient's PCP or Dr. Olson before it is weaned and then stopped Prov:JASKARAN CULLEN MD 12/23/16 Potassium Chloride (KLOR-CON 10) 10 Meq Tablet.er, 10 MEQ PO DAILY, #0 Prov:JASKARAN CULLEN MD 03/06/16 Magnesium Hydroxide (MILK OF MAGNESIA) 30 Ml Susp, 30 ML PO BID Y for CONSTIPATION, #1 BOTTLE Prov:PATRIZIA BRUNER MD 08/24/14 Reported Medications Clonazepam (CLONAZEPAM) 0.25 Mg Tab.rapdis, 0.5 MG PO QDAY, #14 TAB 05/25/17 Promethazine Hcl (PROMETHEGAN) 25 Mg Supp.rect, 25 MG RC Q8H Y for NAUSEA/ VOMITING, SUPP.RECT 05/25/17 Omeprazole (OMEPRAZOLE) 20 Mg Capsule.dr, 1 CAP PO QDAY, CAP 05/25/17 Docusate Sodium (COLACE) 100 Mg Capsule, 100 MG PO QDAY, CAPSULE 05/25/17 Lactose-Free Food (ENSURE PLUS) 237 Ml Liquid, 237 ML PO BID 04/03/17 Cholecalciferol (Vitamin D3) (VITAMIN D3) 1,000 Unit Tablet, 1000 UNIT PO DAILY , TAB 04/03/17 Lactobacillus Combo No.13 (Probiotic Pearls Complete) 1 Each Capsule.dr, 2 CAP PO DAILY 04/03/17 Duloxetine Hcl (CYMBALTA) 30 Mg Capsule.dr, 30 MG PO QDAY, #30 CAP 04/03/17 Cranberry Fruit Concentrate (CRANBERRY) 450 Mg Tablet, 450 MG PO DAILY 04/03/17 Fentanyl (Fentanyl) 1 Each Patch.td72, 12 TD q72hr 04/02/17 Melatonin (MELATONIN) 3 Mg Tablet, 3 MG PO QHS 03/11/17 Ondansetron Hcl (ZOFRAN) 4 Mg Tablet, 8 MG PO Q4H Y for NAUSEA, TAB 08/16/16 Hydrocodone Bit/Acetaminophen (NORCO 5-325 TABLET) 1 Each Tablet, 1 EACH PO BID Y for PAIN, TAB 08/16/16 Multivitamin (MULTI VITAMIN DAILY) 1 Each Tablet, 1 EACH PO QDAY 02/29/16 Oxybutynin Chloride (OXYBUTYNIN CHLORIDE ER) 10 Mg Tab.er.24, 10 MG PO QDAY, TAB.SR 02/29/16 Baclofen (BACLOFEN) 20 Mg Tablet, 20 MG PO QID, #15 TAB 08/15/14 Acetaminophen (ACETAMINOPHEN) 500 Mg Tablet, 500 MG PO TID Y for PRN, TAB 08/15/14 Bisacodyl (BISACODYL) 10 Mg Supp.rect, 10 MG RC BID Y for CONSTIPATION, SUPP.RECT 05/02/13 Discontinued Reported Medications Cefdinir 300 Mg Cap (OMNICEF 300 MG CAP (OR EQUIV)) 300 Mg Cap, 300 MG PO BID for 8 Days, CAP 04/07/17 Docusate Sodium (DOCU LIQUID) 50 Mg/5 Ml Liquid, 10 ML PO DAILY 11/30/16 Past Medical/Surgical History Past medical history: Multiple sclerosis, CVA, gastric element obstruction, H. pylori duodenitis, recurrent UTI/suprapubic catheter, ileus Past surgical history: Suprapubic catheter placement Reviewed Nurses Notes: Yes Old Medical Records Reviewed: Yes Hx Smoking: No Smoking Status: Former Smoker Exposure to Second Hand Smoke?: No Hx Substance Use Disorder: Yes (POT) Hx Alcohol Use: No Constitutional Vital Sign - Last 24 Hours 05/25/17 05/25/17 05/25/17 05/25/17 00:38 00:45 01:00 01:15 Temp 98.9 Pulse 98 ? Resp 18 B/P (MAP) 148/83 Pulse Ox 92 O2 Delivery Room Air 05/25/17 05/25/17 05/25/17 05/25/17 01:30 01:45 01:45 02:00 Pulse 102 97 98 Pulse Ox 84 84 93 O2 Flow Rate 2.0 05/25/17 05/25/17 05/25/17 05/25/17 02:15 02:30 02:45 03:15 Pulse ??? 96 95 98 Pulse Ox 92 93 90 05/25/17 05/25/17 05/25/17 05/25/17 03:30 03:45 04:00 04:15 Pulse 98 95 96 93 Pulse Ox 90 92 88 89 05/25/17 05/25/17 05/25/17 05/25/17 04:30 04:45 05:00 05:15 Pulse 92 90 88 91 Pulse Ox 91 91 91 91 05/25/17 05:30 Pulse 90 Pulse Ox 91 Physical Exam Vital signs stable, afebrile, pulse ox normal General Appearance: The patient is alert, has no immediate need for airway protection and no current signs of toxicity. Alert and oriented 3, mild distress HEENT: Pupils equal and round no injection. Oropharynx with moist membranes, no erythema Respiratory: Chest is non tender, lungs are clear to auscultation. Cardiac: regular rate and rhythm Gastrointestinal: Abdomen is tense, grossly distended abdomen, intact suprapubic catheter, no masses, bowel sounds normal. Musculoskeletal: Neck: Neck is supple and non tender. Extremities: Are contracted consistent with his medical history Skin: No rashes or lesions. DIFFERENTIAL DIAGNOSIS: After history and physical exam differential diagnosis was considered for abdominal pain including but not limited to appendicitis, cholecystitis, gastritis, bowel obstruction, fecal impaction, ileus and urinary tract infection. Medical Decision Making Data Points Result Diagram: 05/25/17 0032 05/25/17 0032 Laboratory Hematology Test 05/25/17 00:32 05/25/17 04:24 Red Blood Count 5.05 M/uL (4.00-5.60) Mean Corpuscular Volume 78.5 fL (80.0-96.0) Mean Corpuscular Hemoglobin 25.8 pg (26.0-33.0) Mean Corpuscular Hemoglobin Concent 32.8 g/dL (32.0-36.0) Red Cell Distribution Width 18.7 % (11.5-14.5) Mean Platelet Volume 7.7 fL (7.2-11.1) Neutrophils (%) (Auto) 76.6 % (39.4-72.5) Lymphocytes (%) (Auto) 13.3 % (17.6-49.6) Monocytes (%) (Auto) 7.3 % (4.1-12.4) Eosinophils (%) (Auto) 1.6 % (0.4-6.7) Basophils (%) (Auto) 1.2 % (0.3-1.4) Nucleated RBC Relative Count (auto) 0.1 /100WBC Neutrophils # (Auto) 11.3 K/uL (2.0-7.4) Lymphocytes # (Auto) 2.0 K/uL (1.3-3.6) Monocytes # (Auto) 1.1 K/uL (0.3-1.0) Eosinophils # (Auto) 0.2 K/uL (0.0-0.5) Basophils # (Auto) 0.2 K/uL (0.0-0.1) Nucleated RBC Absolute Count (auto) 0.01 K/uL Peripheral Blood Smear No Y/N Sodium Level 139 mmol/L (137-145) Potassium Level 3.7 mmol/L (3.5-5.0) Chloride Level 102 mmol/L (98-107) Carbon Dioxide Level 22 mmol/L (22-30) Blood Urea Nitrogen 28 mg/dl (9-21) Creatinine 1.20 mg/dl (0.66-1.25) Glomerular Filtration Rate Calc > 60.0 Random Glucose 130 mg/dl (75-110) Calcium Level 9.5 mg/dl (8.4-10.2) Total Bilirubin 0.4 mg/dl (0.2-1.3) Aspartate Amino Transf (AST/SGOT) 15 U/L (0-35) Alanine Aminotransferase (ALT/SGPT) 26 U/L (0-56) Alkaline Phosphatase 109 U/L (0-126) Total Protein 8.5 gm/dl (6.3-8.2) Albumin 3.9 g/dl (3.5-5.0) Amylase Level 81 U/L (0-110) Lipase 52 U/L (23-300) Urine Color Yellow Urine Clarity Turbid Urine pH 5.0 pH (4.8-9.5) Urine Specific [place] 1.016 Urine Protein 100 mg/dL (NEGATIVE) Urine Glucose (UA) Negative mg/dL (NEGATIVE) Urine Ketones Negative mg/dL (NEGATIVE) Urine Blood Moderate (NEGATIVE) Urine Nitrite Positive (NEGATIVE) Urine Bilirubin Negative (NEGATIVE) Urine Urobilinogen Negative mg/dL (0.2-1.9) Urine Leukocyte Esterase Large (NEGATIVE) Urine RBC 181 /HPF (0-2/HPF) Urine WBC 3656 /HPF (0-5/HPF) Urine Squamous Epithelial Cells None /LPF (NONE-FEW) Urine Amorphous Crystals Few /HPF Urine Bacteria Few /HPF (NONE-FEW) Urine Mucus None /HPF (NONE-FEW) Chemistry Test 05/25/17 00:32 05/25/17 04:24 White Blood Count 14.8 k/uL (4.5-11.0) Red Blood Count 5.05 M/uL (4.00-5.60) Hemoglobin 13.0 g/dL (14.0-18.0) Hematocrit 39.6 % (42.0-52.0) Mean Corpuscular Volume 78.5 fL (80.0-96.0) Mean Corpuscular Hemoglobin 25.8 pg (26.0-33.0) Mean Corpuscular Hemoglobin Concent 32.8 g/dL (32.0-36.0) Red Cell Distribution Width 18.7 % (11.5-14.5) Platelet Count 453 K/uL (150-450) Mean Platelet Volume 7.7 fL (7.2-11.1) Neutrophils (%) (Auto) 76.6 % (39.4-72.5) Lymphocytes (%) (Auto) 13.3 % (17.6-49.6) Monocytes (%) (Auto) 7.3 % (4.1-12.4) Eosinophils (%) (Auto) 1.6 % (0.4-6.7) Basophils (%) (Auto) 1.2 % (0.3-1.4) Nucleated RBC Relative Count (auto) 0.1 /100WBC Neutrophils # (Auto) 11.3 K/uL (2.0-7.4) Lymphocytes # (Auto) 2.0 K/uL (1.3-3.6) Monocytes # (Auto) 1.1 K/uL (0.3-1.0) Eosinophils # (Auto) 0.2 K/uL (0.0-0.5) Basophils # (Auto) 0.2 K/uL (0.0-0.1) Nucleated RBC Absolute Count (auto) 0.01 K/uL Peripheral Blood Smear No Y/N Glomerular Filtration Rate Calc > 60.0 Calcium Level 9.5 mg/dl (8.4-10.2) Total Bilirubin 0.4 mg/dl (0.2-1.3) Aspartate Amino Transf (AST/SGOT) 15 U/L (0-35) Alanine Aminotransferase (ALT/SGPT) 26 U/L (0-56) Alkaline Phosphatase 109 U/L (0-126) Total Protein 8.5 gm/dl (6.3-8.2) Albumin 3.9 g/dl (3.5-5.0) Amylase Level 81 U/L (0-110) Lipase 52 U/L (23-300) Urine Color Yellow Urine Clarity Turbid Urine pH 5.0 pH (4.8-9.5) Urine Specific [place] 1.016 Urine Protein 100 mg/dL (NEGATIVE) Urine Glucose (UA) Negative mg/dL (NEGATIVE) Urine Ketones Negative mg/dL (NEGATIVE) Urine Blood Moderate (NEGATIVE) Urine Nitrite Positive (NEGATIVE) Urine Bilirubin Negative (NEGATIVE) Urine Urobilinogen Negative mg/dL (0.2-1.9) Urine Leukocyte Esterase Large (NEGATIVE) Urine RBC 181 /HPF (0-2/HPF) Urine WBC 3656 /HPF (0-5/HPF) Urine Squamous Epithelial Cells None /LPF (NONE-FEW) Urine Amorphous Crystals Few /HPF Urine Bacteria Few /HPF (NONE-FEW) Urine Mucus None /HPF (NONE-FEW) Urinalysis Test 05/25/17 04:24 Urine Color Yellow Urine Clarity Turbid Urine pH 5.0 pH (4.8-9.5) Urine Specific [place] 1.016 Urine Protein 100 mg/dL (NEGATIVE) Urine Glucose (UA) Negative mg/dL (NEGATIVE) Urine Ketones Negative mg/dL (NEGATIVE) Urine Blood Moderate (NEGATIVE) Urine Nitrite Positive (NEGATIVE) Urine Bilirubin Negative (NEGATIVE) Urine Urobilinogen Negative mg/dL (0.2-1.9) Urine Leukocyte Esterase Large (NEGATIVE) Urine RBC 181 /HPF (0-2/HPF) Urine WBC 3656 /HPF (0-5/HPF) Urine Squamous Epithelial Cells None /LPF (NONE-FEW) Urine Amorphous Crystals Few /HPF Urine Bacteria Few /HPF (NONE-FEW) Urine Mucus None /HPF (NONE-FEW) EKG/Imaging Imaging Results: CT scan of the abdomen and pelvis with IV contrast was obtained. The results of the study are INDICATION: Abdominal distention. COMPARISON: Same-day radiographs, CT abdomen and pelvis 05/12/2017. TECHNIQUE: Contrast enhanced abdomen and pelvis CT performed during the injection of 75 ml of Isovue 370. Sagittal and coronal reconstructions were performed. One of the following dose optimization techniques was utilized in the performance of this exam: Automated exposure control; adjustment of the mA and/or kV according to the patient's size; or use of an iterative reconstruction technique. Specific details can be referenced in the facility's radiology CT exam operational policy. FINDINGS: Lung bases: Mild scarring/atelectasis. Prominent coronary artery calcifications. Liver and hepatic vasculature: No acute abnormality or suspicious lesion. Gallbladder and bile ducts: Normal. Spleen: Normal. Pancreas: Normal. Adrenals: Normal. Kidneys, ureters and bladder: There is moderate to severe hydronephrosis and hydroureter that is new compared to 05/12/2017. Suprapubic catheter remains in place and the urinary bladder is largely decompressed. The tip of the catheter is in the prostatic urethra. The catheter balloon appears slightly more distended than on the prior examination, and the urinary bladder is essentially entirely decompressed. The balloon may be obstructing the ureterovesicular junctions. Bilateral nonobstructing renal calculi. Retroperitoneum and aorta: Infrarenal aortic aneurysm measuring approximately 3.9 cm in diameter with associated mural thrombus. Mild atherosclerosis. GI tract, mesentery and peritoneum: There is prominent gaseous distention of the colon as seen on prior CT and radiographs with fecal impaction in the distal sigmoid colon and rectum. Small bowel is grossly normal. No pneumatosis , pneumoperitoneum or significant free fluid. Unchanged metallic foreign bodies adjacent to the posterior aspect of the gastric fundus. Prostate and seminal vesicles: Unremarkable. Bones and soft tissues: Right greater than left severe hip arthrosis with probable chronic small right effusion. Bone mineralization is low. No definite acute abnormality. Fat-containing left inguinal hernia. Ventral surgical scar. IMPRESSION: 1. Fecal impaction of the distal sigmoid colon and rectum with associated gaseous distention of the remainder of the colon. This is similar in appearance to 05/12/2017. 2. Bilateral moderate to severe hydronephrosis and hydroureter that is new compared to 05/12/2017. This could be due to obstruction of the ureterovesicular junctions by the patient's suprapubic catheter balloon. The balloon appears slightly more distended than on the prior examination. Consider withdrawing some of the fluid from the balloon, though caution is recommended to avoid displacing the catheter entirely. 3. 3.9 cm infrarenal aortic aneurysm. Dr. José discussed this case with TYSON SANTILLAN on 05/25/2017 3:06 AM. The study was read by the radiologist. I viewed the images myself on the PACS system. ED Course/Re-evaluation Clinical Indication for ER IV: Hydration, IV Access ED Course Patient was admitted to an examination room. H&P was done. The differential diagnoses was considered. Diagnostic evaluation was undertaken. Laboratory studies are unremarkable. Except for an elevated white blood cell count of 14, 000. Plain x-ray suggests gross dilation of bowels. A CT scan with contrast was performed showing gross fecal impaction. Comparison was made to previous CT scan 05/12/17, showing fecal impaction. His hydronephrosis is worse likely due to bowel compression of his bladder and ureters. A digital disimpaction was undertaken. She had a significant bowel movement after digitally disimpacting his rectum. Patient needs to be on a bowel regime to keep his bowels moving regularly. He'll be prescribed MiraLAX twice daily through the weekend. His primary care will address his bowel needs on Friday. Patient was noted to have significant pyuria with nitrates and leukocyte esterase. A urinary culture was ordered. Patient be receiving 1 mg of Rocephin and he'll be prescribed Cipro 500 mg twice a day for 7 days. Decision to Disposition Date: May 25, 2017 Decision to Disposition Time: 03:17 Depart Departure Latest Vital Signs Vital Signs Date Time Temp Pulse Resp B/P (MAP) Pulse Ox O2 Delivery O2 Flow Rate FiO2 05/25/17 05:30 90 91 05/25/17 01:45 2.0 05/25/17 00:38 98.9 18 148/83 Room Air Core Temperature (Celsius): 36.9 Impression: Primary Impression: Fecal impaction Additional Impressions: Suprapubic catheter dysfunction Hydronephrosis Urinary tract infection Condition: Improved Disposition: ASSISTED LIVING FACILITY Patient Instructions: Fecal Impaction (ED), Urinary Tract Infection in Men (ED) Additional Instructions: See orders written for long-term Problem Qualifiers Additional Impressions: Suprapubic catheter dysfunction Encounter type: initial encounter Qualified Codes: T83.010A - Breakdown ( mechanical) of cystostomy catheter, initial encounter Hydronephrosis Hydronephrosis type: unspecified Qualified Codes: N13.30 - Unspecified hydronephrosis Urinary tract infection Urinary tract infection type: catheter-associated UTI Indwelling urinary catheter type: indwelling urethral catheter Encounter type: initial encounter Qualified Codes: T83.511A - Infection and inflammatory reaction due to indwelling urethral catheter, initial encounter; N39.0 - Urinary tract infection, site not specified TYSON SANTILLAN DO May 25, 2017 00:32
[2017-05-25 00:38] VITALS: BP 148/83
[2017-05-25] MEDS ORDERED: NS(*) 0.9% 1000 ML BAG 1,000 ML IV ONE (00:40)
[2017-05-25] MEDS ORDERED: ONDANSETRON 4 MG/2 ML VIAL IVP ONE (00:40)
[2017-05-25 00:50] LABS: PLATELET COUNT, AUTOMATED 453 K/uL (150-450)
[2017-05-25] MEDS ORDERED: LORazepam 2 MG/ML VIAL IVP ONE (01:35)
[2017-05-25] MEDS ORDERED: fentaNYL CITR 100 MCG/2 ML AMP IVP ONE (01:35)
--- NOTE | 2017-05-25 01:45 | RADIOLOGY IMAGING REPORT ---
FACILITY: [facility] [place] PATIENT NAME: Jared Hammond : 1950 MR: [id number] V: [id number] EXAM DATE: ORDERING PHYSICIAN: TYSON SANTILLAN TECHNOLOGIST: Location: [facility] Patient: Jared Hammond : 1950 Visit/Account:[id number] Date of Sevice: 05/25/2017 INDICATION: Vomiting, history of bowel obstruction. EXAM DATE: 05/25/2017 12:40 AM COMPARISON: CT abdomen and pelvis 05/12/2017, chest radiograph 04/02/2017. FINDINGS: AP view the chest with 2 AP supine images of the abdomen. Lungs are mildly hypoexpanded with mild bibasilar atelectasis. No pleural effusion or pneumothorax. H eart size is likely normal. There is again gaseous distention of the:. No apparent pneumatosis or pneumoperitoneum. Stool burde n is difficult to assess, though there may be persistent or recurrent impaction the rectum. No acute osseous abnormality. Metallic foreign bodies projecting over the left upper quadrant are un changed. IMPRESSION: 1. Gaseous distention of the colon with possible persistent or recurrent fecal impaction, similar in appearance to 05/12/2017. 2. Mild atelectasis. Report Dictated By: Aníbal José MD at 05/25/2017 1:36 AM Report E-Signed By: Aníbal José MD at 05/25/2017 1:41 AM WSN:[id number]
--- NOTE | 2017-05-25 01:46 | RADIOLOGY IMAGING REPORT ---
FACILITY: [facility] PATIENT NAME: Jared Hammond : 1950 MR: [id number] V: [id number] EXAM DATE: ORDERING PHYSICIAN: TYSON SANTILLAN TECHNOLOGIST: Location: [facility] Patient: Jared Hammond : 1950 Visit/Account:[id number] Date of Sevice: 05/25/2017 INDICATION: Vomiting, history of bowel obstruction. EXAM DATE: 05/25/2017 12:40 AM COMPARISON: CT abdomen and pelvis 05/12/2017, chest radiograph 04/02/2017. FINDINGS: AP view the chest with 2 AP supine images of the abdomen. Lungs are mildly hypoexpanded with mild bibasilar atelectasis. No pleural effusion or pneumothorax. H eart size is likely normal. There is again gaseous distention of the:. No apparent pneumatosis or pneumoperitoneum. Stool burde n is difficult to assess, though there may be persistent or recurrent impaction the rectum. No acute osseous abnormality. Metallic foreign bodies projecting over the left upper quadrant are un changed. IMPRESSION: 1. Gaseous distention of the colon with possible persistent or recurrent fecal impaction, similar in appearance to 05/12/2017. 2. Mild atelectasis. Report Dictated By: Aníbal José MD at 05/25/2017 1:36 AM Report E-Signed By: Aníbal José MD at 05/25/2017 1:41 AM WSN:[id number]
[2017-05-25] MEDS ORDERED: IOPAMIDOL 76% 75 ML INFUS BTL 75 ML ONE (01:52)
[2017-05-25] MEDS ORDERED: POLYETHYLENE GLYCOL 17 GM PKT PO ONE (03:15)
--- NOTE | 2017-05-25 03:21 | RADIOLOGY IMAGING REPORT ---
FACILITY: [facility] [place] PATIENT NAME: Jared Hammond : 1950 MR: [id number] V: [id number] EXAM DATE: [id number] ORDERING PHYSICIAN: TYSON SANTILLAN TECHNOLOGIST: Location: [facility] Patient: Jared Hammond : 1950 Visit/Account:[id number] Date of Sevice: 05/25/2017 COMPUTED TOMOGRAPHY ABDOMEN AND PELVIS WITH INTRAVENOUS CONTRAST DATE OF EXAM: 05/25/2017 1:30 AM INDICATION: Abdominal distention. COMPARISON: Same-day radiographs, CT abdomen and pelvis 05/12/2017. TECHNIQUE: Contrast enhanced abdomen and pelvis CT performed during the injection of 75 ml of Isovue 370. Sagittal and coronal reconstructions were performed. One of the following dose optimization te chniques was utilized in the performance of this exam: Automated exposure control; adjustment of the mA and/or kV according to the patient's size; or use of an iterative reconstruction technique. Spec [facility] details can be referenced in the facility's radiology CT exam operational policy. FINDINGS: Lung bases: Mild scarring/atelectasis. Prominent coronary artery calcifications. Liver and hepatic vasculature: No acute abnormality or suspicious lesion. Gallbladder and bile ducts: Normal. Spleen: Normal. Pancreas: Normal. Adrenals: Normal. Kidneys, ureters and bladder: There is moderate to severe hydronephrosis and hydroureter that is new compared to 05/12/2017. Suprapubic catheter remains in place and the urinary bladder is largely decom pressed. The tip of the catheter is in the prostatic urethra. The catheter balloon appears slightly more distended than on the prior examination, and the urinary bladder is essentially entirely decomp ressed. The balloon may be obstructing the ureterovesicular junctions. Bilateral nonobstructing jay jay al calculi. Retroperitoneum and aorta: Infrarenal aortic aneurysm measuring approximately 3.9 cm in diameter wit h associated mural thrombus. Mild atherosclerosis. GI tract, mesentery and peritoneum: There is prominent gaseous distention of the colon as seen on pr ior CT and radiographs with fecal impaction in the distal sigmoid colon and rectum. Small bowel is g rossly normal. No pneumatosis, pneumoperitoneum or significant free fluid. Unchanged metallic forei gn bodies adjacent to the posterior aspect of the gastric fundus. Prostate and seminal vesicles: Unremarkable. Bones and soft tissues: Right greater than left severe hip arthrosis with probable chronic small rig ht effusion. Bone mineralization is low. No definite acute abnormality. Fat-containing left inguin al hernia. Ventral surgical scar. IMPRESSION: 1. Fecal impaction of the distal sigmoid colon and rectum with associated gaseous distention of the remainder of the colon. This is similar in appearance to 05/12/2017. 2. Bilateral moderate to severe hydronephrosis and hydroureter that is new compared to 05/12/2017. Th is could be due to obstruction of the ureterovesicular junctions by the patient's suprapubic catheter balloon. The balloon appears slightly more distended than on the prior examination. Consider withd rawing some of the fluid from the balloon, though caution is recommended to avoid displacing the cath eter entirely. 3. 3.9 cm infrarenal aortic aneurysm. Dr. José discussed this case with TYSON SANTILLAN on 05/25/2017 3:06 AM. Report Dictated By: Aníbal José MD at 05/25/2017 2:50 AM Report E-Signed By: Aníbal José MD at 05/25/2017 3:07 AM WSN:[id number]
[2017-05-25] MEDS ORDERED: OMEP-125 PO (04:06)
[2017-05-25] MEDS ORDERED: PROM25SU3 RC (04:06)
[2017-05-25] MEDS ORDERED: CLON0.255 PO (04:06)
[2017-05-25] MEDS ORDERED: DOCU-416 PO (04:06)
[2017-05-25] MEDS ORDERED: cefTRIAXone(*) 1 GM VIAL 1 GM in NS(*) 0.9% 100 ML ADDVANT BAG 100 ML IVPB ONE (05:25)
== END 2017-05-25 06:48 | disposition home or self-care (01) ==
LOC: ER 00:27
DX: K56.41 Fecal impaction (principal); N13.30 Unspecified hydronephrosis; T83.010A Breakdown (mechanical) of cystostomy catheter, initial encounter; T83.511A Infection and inflammatory reaction due to indwelling urethral catheter, initial encounter; N39.0 Urinary tract infection, site not specified
CPT/HCPCS: 71045; 74018; 74177; 81001; 82150; 83690; 85025; 87088; 96361; 96365; 96375; 99284; A9270; J0696; J2060; J2405; J3010; J7030; J7050; Q9967; 82040; 82247; 82310; 82374; 82435; 82565; 82947; 84075; 84132; 84155; 84295; 84450; 84460; 84520; 87077; 87186

== ENCOUNTER → 2017-05-25 | Outpatient (CLI) | payer MEDICARE, MEDICAID ==
[2017-04-03 10:55] VITALS: BMI 24.5
== END ==
LOC: AMB 06:40
PROVIDERS: ATTEND Nurse Practitioner
DX: Z76.89 Persons encountering health services in other specified circumstances (principal)
CPT/HCPCS: A0425; A0428

== ENCOUNTER → 2017-05-25 | Outpatient (CLI) | payer MEDICARE, MEDICAID ==
[2017-04-03 10:55] VITALS: BMI 24.5
== END ==
LOC: AMB 00:06
PROVIDERS: ATTEND Nurse Practitioner
DX: R14.0 Abdominal distension (gaseous) (principal)
CPT/HCPCS: A0425; A0429

== ENCOUNTER 2017-06-24 06:04 | Emergency (ER) | payer MEDICARE, MEDICAID ==
[2017-04-03 10:55] VITALS: Wt 82.3 kg
--- NOTE | 2017-06-24 06:07 | ER Report ---
History and Physical Time Seen By MD: 06:07 (TYSON SANTILLAN DO) Time Seen By MD: 07:00 (SUZAN BAY MD) HPI/ROS 67-year-old male who [facility] sent to the emergency department for diffuse abdominal pain and distention, likely associated with fecal impaction. The patient complains of diffuse abdominal pain. (SUZAN BAY MD) Allergies: Coded Allergies: No Known Drug Allergies (Verified , 02/12/17) Home Meds Active Scripts Pantoprazole Sodium (PANTOPRAZOLE SODIUM) 40 Mg Tablet.dr, 40 MG PO QDAY for 120 Days, Clear with patient's PCP or Dr. Olson before it is weaned and then stopped Prov:JASKARAN CULLEN MD 12/23/16 Potassium Chloride (KLOR-CON 10) 10 Meq Tablet.er, 10 MEQ PO DAILY, #0 Prov:JASKARAN CULLEN MD 03/06/16 Magnesium Hydroxide (MILK OF MAGNESIA) 30 Ml Susp, 30 ML PO BID Y for CONSTIPATION, #1 BOTTLE Prov:PATRIZIA BRUNER MD 08/24/14 Reported Medications Clonazepam (CLONAZEPAM) 0.25 Mg Tab.rapdis, 0.5 MG PO QDAY, #14 TAB 05/25/17 Promethazine Hcl (PROMETHEGAN) 25 Mg Supp.rect, 25 MG RC Q8H Y for NAUSEA/ VOMITING, SUPP.RECT 05/25/17 Omeprazole (OMEPRAZOLE) 20 Mg Capsule.dr, 1 CAP PO QDAY, CAP 05/25/17 Docusate Sodium (COLACE) 100 Mg Capsule, 100 MG PO QDAY, CAPSULE 05/25/17 Lactose-Free Food (ENSURE PLUS) 237 Ml Liquid, 237 ML PO BID 04/03/17 Cholecalciferol (Vitamin D3) (VITAMIN D3) 1,000 Unit Tablet, 1000 UNIT PO DAILY , TAB 04/03/17 Lactobacillus Combo No.13 (Probiotic Pearls Complete) 1 Each Capsule.dr, 2 CAP PO DAILY 04/03/17 Duloxetine Hcl (CYMBALTA) 30 Mg Capsule.dr, 30 MG PO QDAY, #30 CAP 04/03/17 Cranberry Fruit Concentrate (CRANBERRY) 450 Mg Tablet, 450 MG PO DAILY 04/03/17 Fentanyl (Fentanyl) 1 Each Patch.td72, 12 TD q72hr 04/02/17 Melatonin (MELATONIN) 3 Mg Tablet, 3 MG PO QHS 03/11/17 Ondansetron Hcl (ZOFRAN) 4 Mg Tablet, 8 MG PO Q4H Y for NAUSEA, TAB 08/16/16 Hydrocodone Bit/Acetaminophen (NORCO 5-325 TABLET) 1 Each Tablet, 1 EACH PO BID Y for PAIN, TAB 08/16/16 Multivitamin (MULTI VITAMIN DAILY) 1 Each Tablet, 1 EACH PO QDAY 02/29/16 Oxybutynin Chloride (OXYBUTYNIN CHLORIDE ER) 10 Mg Tab.er.24, 10 MG PO QDAY, TAB.SR 02/29/16 Baclofen (BACLOFEN) 20 Mg Tablet, 20 MG PO QID, #15 TAB 08/15/14 Acetaminophen (ACETAMINOPHEN) 500 Mg Tablet, 500 MG PO TID Y for PRN, TAB 08/15/14 Bisacodyl (BISACODYL) 10 Mg Supp.rect, 10 MG RC BID Y for CONSTIPATION, SUPP.RECT 05/02/13 Reviewed Nurses Notes: Yes Old Medical Records Reviewed: Yes (TYSON SANTILLAN DO) Reviewed Nurses Notes: Yes Old Medical Records Reviewed: Yes (SUZAN BAY MD) Hx Smoking: No Smoking Status: Former Smoker Exposure to Second Hand Smoke?: No Hx Substance Use Disorder: Yes (POT) Hx Alcohol Use: No (TYSON SANTILLAN DO) Hx Smoking: No Smoking Status: Never Smoker (SUZAN BAY MD) Constitutional Vital Sign - Last 24 Hours 06/24/17 06/24/17 06/24/17 06/24/17 06:20 06:20 06:30 07:00 Temp 98.1 Pulse 101 Resp 14 B/P (MAP) 121/94 121/94 (103) 132/90 (104) 134/87 (103) Pulse Ox 92 O2 Delivery Room Air 06/24/17 07:04 Pulse 102 Pulse Ox 94 (SUZAN BAY MD) Physical Exam General Appearance: The patient is alert, has no immediate need for airway protection and no current signs of toxicity. Eyes: Pupils equal and round no injection. Respiratory: Chest is non tender, lungs are clear to auscultation. Cardiac: regular rate and rhythm Gastrointestinal: Abdomen is distended and firm Skin: Stage one skin breakdown to scrotal region DIFFERENTIAL DIAGNOSIS: After history and physical exam differential diagnosis was considered for abdominal pain including but not limited to appendicitis, cholecystitis, gastritis and urinary tract infection, fecal impaction (SUZAN BAY MD) Medical Decision Making Data Points Result Diagram: 06/24/1715 06/24/17 0615 Laboratory Hematology Test 06/24/17 06:15 06/24/17 07:18 06/24/17 07:53 Red Blood Count 5.24 M/uL (4.00-5.60) Mean Corpuscular Volume 78.6 fL (80.0-96.0) Mean Corpuscular Hemoglobin 25.9 pg (26.0-33.0) Mean Corpuscular Hemoglobin Concent 32.9 g/dL (32.0-36.0) Red Cell Distribution Width 18.6 % (11.5-14.5) Mean Platelet Volume 7.8 fL (7.2-11.1) Neutrophils (%) (Auto) 79.7 % (39.4-72.5) Lymphocytes (%) (Auto) 11.9 % (17.6-49.6) Monocytes (%) (Auto) 7.1 % (4.1-12.4) Eosinophils (%) (Auto) 0.6 % (0.4-6.7) Basophils (%) (Auto) 0.7 % (0.3-1.4) Nucleated RBC Relative Count (auto) 0.0 /100WBC Neutrophils # (Auto) 10.4 K/uL (2.0-7.4) Lymphocytes # (Auto) 1.6 K/uL (1.3-3.6) Monocytes # (Auto) 0.9 K/uL (0.3-1.0) Eosinophils # (Auto) 0.1 K/uL (0.0-0.5) Basophils # (Auto) 0.1 K/uL (0.0-0.1) Nucleated RBC Absolute Count (auto) 0.00 K/uL Peripheral Blood Smear No Y/N Sodium Level 135 mmol/L (137-145) Potassium Level 4.4 mmol/L (3.5-5.0) Chloride Level 96 mmol/L (98-107) Carbon Dioxide Level 22 mmol/L (22-30) Blood Urea Nitrogen 25 mg/dl (9-21) Creatinine 1.20 mg/dl (0.66-1.25) Glomerular Filtration Rate Calc > 60.0 Random Glucose 132 mg/dl (75-110) Calcium Level 9.4 mg/dl (8.4-10.2) Total Bilirubin 0.7 mg/dl (0.2-1.3) Aspartate Amino Transf (AST/SGOT) 19 U/L (0-35) Alanine Aminotransferase (ALT/SGPT) 31 U/L (0-56) Alkaline Phosphatase 139 U/L (0-126) Total Protein 8.5 gm/dl (6.3-8.2) Albumin 4.2 g/dl (3.5-5.0) Amylase Level 70 U/L (0-110) Lipase 34 U/L (23-300) Lactate 0.9 mmol/L (0.7-2.1) Urine Color Blue Urine Clarity Turbid Urine pH 5.0 pH (4.8-9.5) Urine Specific Cameron 1.015 Urine Protein 100 mg/dL (NEGATIVE) Urine Glucose (UA) Negative mg/dL (NEGATIVE) Urine Ketones Negative mg/dL (NEGATIVE) Urine Blood Moderate (NEGATIVE) Urine Nitrite Negative (NEGATIVE) Urine Bilirubin Negative (NEGATIVE) Urine Urobilinogen Negative mg/dL (0.2-1.9) Urine Leukocyte Esterase Moderate (NEGATIVE) Urine RBC 32 /HPF (0-2/HPF) Urine WBC 1996 /HPF (0-5/HPF) Urine WBC Clumps Many /HPF Urine Squamous Epithelial Cells None /LPF (</=FEW) Urine Bacteria Many /HPF (NONE-FEW) Urine Mucus None /HPF (NONE-FEW) Chemistry Test 06/24/17 06:15 06/24/17 07:18 06/24/17 07:53 White Blood Count 13.1 k/uL (4.5-11.0) Red Blood Count 5.24 M/uL (4.00-5.60) Hemoglobin 13.6 g/dL (14.0-18.0) Hematocrit 41.2 % (42.0-52.0) Mean Corpuscular Volume 78.6 fL (80.0-96.0) Mean Corpuscular Hemoglobin 25.9 pg (26.0-33.0) Mean Corpuscular Hemoglobin Concent 32.9 g/dL (32.0-36.0) Red Cell Distribution Width 18.6 % (11.5-14.5) Platelet Count 413 K/uL (150-450) Mean Platelet Volume 7.8 fL (7.2-11.1) Neutrophils (%) (Auto) 79.7 % (39.4-72.5) Lymphocytes (%) (Auto) 11.9 % (17.6-49.6) Monocytes (%) (Auto) 7.1 % (4.1-12.4) Eosinophils (%) (Auto) 0.6 % (0.4-6.7) Basophils (%) (Auto) 0.7 % (0.3-1.4) Nucleated RBC Relative Count (auto) 0.0 /100WBC Neutrophils # (Auto) 10.4 K/uL (2.0-7.4) Lymphocytes # (Auto) 1.6 K/uL (1.3-3.6) Monocytes # (Auto) 0.9 K/uL (0.3-1.0) Eosinophils # (Auto) 0.1 K/uL (0.0-0.5) Basophils # (Auto) 0.1 K/uL (0.0-0.1) Nucleated RBC Absolute Count (auto) 0.00 K/uL Peripheral Blood Smear No Y/N Glomerular Filtration Rate Calc > 60.0 Calcium Level 9.4 mg/dl (8.4-10.2) Total Bilirubin 0.7 mg/dl (0.2-1.3) Aspartate Amino Transf (AST/SGOT) 19 U/L (0-35) Alanine Aminotransferase (ALT/SGPT) 31 U/L (0-56) Alkaline Phosphatase 139 U/L (0-126) Total Protein 8.5 gm/dl (6.3-8.2) Albumin 4.2 g/dl (3.5-5.0) Amylase Level 70 U/L (0-110) Lipase 34 U/L (23-300) Lactate 0.9 mmol/L (0.7-2.1) Urine Color Blue Urine Clarity Turbid Urine pH 5.0 pH (4.8-9.5) Urine Specific Cameron 1.015 Urine Protein 100 mg/dL (NEGATIVE) Urine Glucose (UA) Negative mg/dL (NEGATIVE) Urine Ketones Negative mg/dL (NEGATIVE) Urine Blood Moderate (NEGATIVE) Urine Nitrite Negative (NEGATIVE) Urine Bilirubin Negative (NEGATIVE) Urine Urobilinogen Negative mg/dL (0.2-1.9) Urine Leukocyte Esterase Moderate (NEGATIVE) Urine RBC 32 /HPF (0-2/HPF) Urine WBC 1996 /HPF (0-5/HPF) Urine WBC Clumps Many /HPF Urine Squamous Epithelial Cells None /LPF (</=FEW) Urine Bacteria Many /HPF (NONE-FEW) Urine Mucus None /HPF (NONE-FEW) Urinalysis Test 06/24/17 07:53 Urine Color Blue Urine Clarity Turbid Urine pH 5.0 pH (4.8-9.5) Urine Specific Cameron 1.015 Urine Protein 100 mg/dL (NEGATIVE) Urine Glucose (UA) Negative mg/dL (NEGATIVE) Urine Ketones Negative mg/dL (NEGATIVE) Urine Blood Moderate (NEGATIVE) Urine Nitrite Negative (NEGATIVE) Urine Bilirubin Negative (NEGATIVE) Urine Urobilinogen Negative mg/dL (0.2-1.9) Urine Leukocyte Esterase Moderate (NEGATIVE) Urine RBC 32 /HPF (0-2/HPF) Urine WBC 1996 /HPF (0-5/HPF) Urine WBC Clumps Many /HPF Urine Squamous Epithelial Cells None /LPF (</=FEW) Urine Bacteria Many /HPF (NONE-FEW) Urine Mucus None /HPF (NONE-FEW) (SUZAN BAY MD) ED Course/Re-evaluation ED Course This 67-year-old patient who [facility] with abdominal pain and distention and likely fecal impaction. A CT scan showed moderate to severe amount of fecal impaction. Manual disimpaction was performed by myself along with the nursing staff. Please amounts of stool was removed. We also had a conversation with the staff at the alf about a better regimen for this patient to avoid impaction. This patient is now pain- free and will be transferred [facility] Procedure Manual dysimpaction was performed by me at the bedside. Copious amount of stool expelled. Patient's pain now reolved, and abdomen now soft and not distended Decision to Disposition Date: Jun 24, 2017 Decision to Disposition Time: 09:44 (SUZAN BAY MD) Depart Departure Latest Vital Signs Vital Signs Date Time Temp Pulse Resp B/P (MAP) Pulse Ox O2 Delivery O2 Flow Rate FiO2 06/24/17 07:04 102 94 06/24/17 07:00 134/87 (103) 06/24/17 06:20 98.1 14 Room Air (SUZAN BAY MD) Core Temperature (Celsius): 36.9 (TYSON SANTILLAN DO) Impression: Primary Impression: Fecal impaction Disposition: XFER TO [facility] Patient Instructions: Fecal Impaction (ED) TYSON SANTILLAN DO Jun 24, 2017 06:07 SUZNA BAY MD Jun 24, 2017 09:45
[2017-06-24] MEDS ORDERED: ONDANSETRON 4 MG/2 ML VIAL IVP ONE (06:40)
[2017-06-24] MEDS ORDERED: NS(*) 0.9% 1000 ML BAG 1,000 ML IV ONE (06:40)
[2017-06-24] MEDS ORDERED: IOPAMIDOL 76% 75 ML INFUS BTL 75 ML ONE (06:58)
[2017-06-24 07:00] VITALS: BP 134/87
[2017-06-24 07:02] LABS: PLATELET COUNT, AUTOMATED 413 K/uL (150-450)
--- NOTE | 2017-06-24 08:13 | RADIOLOGY IMAGING REPORT ---
FACILITY: [facility] [place] PATIENT NAME: Jared Hammond : 1950 MR: [id number] V: [id number] EXAM DATE: ORDERING PHYSICIAN: TYSON SANTILLAN TECHNOLOGIST: Location: [facility] Patient: Jared Hammond : 1950 Visit/Account:[id number] Date of Sevice: 06/24/2017 ABDOMEN/PELVIS WITH CONTRAST HISTORY: Distended abdomen. History of small bowel obstruction. TECHNIQUE: Axial images were obtained through the abdomen and pelvis with intravenous contrast . One of the following dose optimization techniques was utilized in the performance of this exam: automate d exposure control; adjustment of the mA and/or kv according to patient size; or use of iterative rec onstruction technique. Specific details can be referenced in the facility's radiology CT exam operati onal policy. CONTRAST: 75 mL of Isovue-370 COMPARISON: CT abdomen/pelvis 05/25/2017 FINDINGS: Visualized lung bases: Negative. Hepatobiliary: Negative. Spleen: Negative. Adrenals: Negative. Pancreas: Negative. Kidneys/ureters/bladder: Persistent severe right hydronephrosis/hydroureter with severe cortical thi nning. Mild left hydronephrosis although decreased from prior. There is gas within the left renal c ollecting system and left ureter with multiple left renal calculi measuring up to 4 mm. Suprapubic c atheter within the urinary bladder. Bowel/peritoneum/mesentery: Colonic dilatation with a large amount of rectal stool. Rectosigmoid co noe measures 11 cm. Ascending colon measures 9 cm. Small bowel is not dilated. No free air. Vessels: Mild arterial calcifications. Mild aneurysmal dilatation of the infrarenal abdominal aorta measuring up to 3.7 cm. Lymph nodes: Negative. Pelvic genitourinary: Negative. Bones/body wall: Severe degenerative changes at the bilateral hips with chronic right hip subluxatio n. Diffuse muscular atrophy within the pelvis Other findings: None significant IMPRESSION: 1. Findings concerning for fecal impaction. Dilated colon with a large amount of rectal stool with the rectosigmoid colon measuring 11 cm. Right colon measures 9 cm. 2. Persistent severe right hydronephrosis with severe right cortical thinning. Mild left hydronephr osis which has decreased from prior. Gas within the left renal collecting system and left ureter may be from prior urologic procedure. Recommend clinical correlation. Multiple nonobstructing left jay jay al calculi measuring up to 4 mm. Report Dictated By: Abdi Nicole MD at 06/24/2017 8:00 AM Report E-Signed By: Abdi Nicole MD at 06/24/2017 8:10 AM WSN:[id number]
== END 2017-06-24 09:50 | disposition home or self-care (01) ==
LOC: ER 06:39
DX: K56.41 Fecal impaction (principal)
CPT/HCPCS: 74177; 81001; 82150; 83605; 83690; 85025; 96361; 96374; 99284; J2405; J7030; Q9967; 82040; 82247; 82310; 82374; 82435; 82565; 82947; 84075; 84132; 84155; 84295; 84450; 84460; 84520

== ENCOUNTER → 2017-06-24 | Outpatient (CLI) | payer MEDICARE, MEDICAID ==
[2017-04-03 10:55] VITALS: BMI 24.5
[~2017-06-24] MED LIST changes: +CLON0.255 PO; +DOCU-416 PO; +PROM25SU3 RC
== END ==
LOC: AMB 09:43
PROVIDERS: ATTEND Nurse Practitioner
DX: G35 Multiple sclerosis (principal)
CPT/HCPCS: A0425; A0428

== ENCOUNTER → 2017-06-24 | Outpatient (CLI) | payer MEDICARE, MEDICAID ==
[2017-04-03 10:55] VITALS: BMI 24.5
== END ==
LOC: AMB 05:49
PROVIDERS: ATTEND Nurse Practitioner
DX: R14.0 Abdominal distension (gaseous) (principal); R11.10 Vomiting, unspecified
CPT/HCPCS: A0425; A0427

== ENCOUNTER → 2017-07-11 | Outpatient (CLI) | payer MEDICARE, MEDICAID ==
[2017-04-03 10:55] VITALS: BMI 24.5
[~2017-07-11] MED LIST changes: -CITA-139 PO; +CITA-145 PO
== END ==
LOC: AMB 11:18
PROVIDERS: ATTEND Nurse Practitioner
DX: R10.31 Right lower quadrant pain (principal); R09.02 Hypoxemia
CPT/HCPCS: A0425; A0429

== ENCOUNTER → 2017-07-11 | Outpatient (CLI) | payer MEDICARE, MEDICAID ==
[2017-04-03 10:55] VITALS: BMI 24.5
[~2017-07-11] MED LIST changes: +CITA-139 PO; -CITA-145 PO
--- NOTE | 2017-07-11 12:29 | RADIOLOGY IMAGING REPORT ---
FACILITY: [facility] - [place] PATIENT NAME: Jared Hammond : 1950 MR: [id number] V: [id number] EXAM DATE: ORDERING PHYSICIAN: HEMA RILEY TECHNOLOGIST: Location: [facility] Patient: Jared Hammond : 1950 Visit/Account:[id number] Date of Sevice: 07/11/2017 Exam type: ABDOMEN AP AND ERECT/DECUB History: SBO Comparison: May 25, 2017 Findings: There is marked gaseous distention of the colon that appears similar to the prior study. The small b owel does not appear grossly dilated. Moderate amount of fecal material seen in the pelvis which cou ld represent fecal impaction as seen on the prior study. Small opaque foreign bodies project over th e left upper quadrant similar to the prior examination. Severe degenerative changes of the hip joint s and chronic dislocation of the right hip is suspected.. IMPRESSION: 1. Marked gaseous distention of the colon with no significant small bowel distention appears similar to the prior study. There is also a moderate amount fecal material projecting over the pelvis. Thi s could be related to fecal impaction as was present previously A message was left for HEMA RILEY at 07/11/2017 12:24 PM. To call concerning these results Report Dictated By: Kaylie Soria MD at 07/11/2017 12:20 PM Report E-Signed By: Kaylie Soria MD at 07/11/2017 12:25 PM [id number]
== END ==
LOC: RAD 11:18
PROVIDERS: ATTEND Family Medicine
DX: K56.41 Fecal impaction (principal)
CPT/HCPCS: 74019

== ENCOUNTER → 2017-07-20 | Outpatient (REF) | payer MEDICARE, MEDICAID ==
[2017-04-03 10:55] VITALS: BMI 24.5
[~2017-07-20] MED LIST changes: -CITA-139 PO; +CITA-145 PO
== END ==
LOC: ZZLCC 15:28
PROVIDERS: ATTEND Family Medicine
DX: N39.0 Urinary tract infection, site not specified (principal); B95.7 Other staphylococcus as the cause of diseases classified elsewhere
CPT/HCPCS: 81001; 87077; 87088; 87186

== ENCOUNTER 2017-10-29 15:56 | Emergency (ER) | payer MEDICARE, MEDICAID ==
[2017-04-03 10:55] VITALS: Wt 82.3 kg
[2017-10-29] MEDS ORDERED: MORPHINE 4 MG/ML SDV IVP ONE (16:10)
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
[2017-10-29 16:22] LABS: PLATELET COUNT, AUTOMATED 437 K/uL (150-450)
[2017-10-29] MEDS ORDERED: NS(*) 0.9% 1000 ML BAG 1,000 ML IV ONE (16:30)
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
--- NOTE | 2017-10-29 16:50 | RADIOLOGY IMAGING REPORT ---
FACILITY: [facility] PATIENT NAME: Jared Hammond : 1950 MR: [id number] V: [id number] EXAM DATE: ORDERING PHYSICIAN: JOAQUIM PEREZ TECHNOLOGIST: Location: [facility] - [place] Patient: Jared Hammond : 1950 Visit/Account:[id number] Date of Sevice: 10/29/2017 Study: PELVIS Indication: Fever, right hip pain Comparison study: None available Findings: Single supine view the pelvis demonstrates that the patient is contracted. There is no defi nite bony abnormality identified. There is mild degenerative disease of both hip joints. The bowel ga s pattern appears to be unremarkable. IMPRESSION: Limited exam due to patient positioning. No definite bony abnormality identified. Report Dictated By: Dann Mccurdy at 10/29/2017 4:44 PM Report E-Signed By: Dann Mccurdy at 10/29/2017 4:46 PM WSN:[id number]
[2017-10-29 17:00] VITALS: BP 143/94
== END 2017-10-29 17:40 | disposition home or self-care (01) ==
LOC: ER 16:08
DX: E86.0 Dehydration (principal)
CPT/HCPCS: 36415; 71045; 72170; 83605; 85025; 87040; 96360; 99284; J2270; J7030; 82040; 82247; 82310; 82374; 82435; 82565; 82947; 84075; 84132; 84155; 84295; 84450; 84460; 84520

== ENCOUNTER → 2017-10-29 | Outpatient (CLI) | payer MEDICARE, MEDICAID ==
[2017-04-03 10:55] VITALS: BMI 24.5
[~2017-10-29] MED LIST changes: -CLON-308 PO; +CLON-335 PO
== END ==
LOC: AMB 15:41
PROVIDERS: ATTEND Nurse Practitioner
DX: F43.0 Acute stress reaction (principal); R09.02 Hypoxemia; M79.622 Pain in left upper arm; M79.662 Pain in left lower leg; M79.661 Pain in right lower leg
CPT/HCPCS: A0425; A0429

== ENCOUNTER → 2017-10-29 | Outpatient (CLI) | payer MEDICARE, MEDICAID ==
[2017-04-03 10:55] VITALS: BMI 24.5
== END ==
LOC: AMB 17:40
PROVIDERS: ATTEND Nurse Practitioner
DX: E86.0 Dehydration (principal); G71.0 Muscular dystrophy; Z74.01 Bed confinement status
CPT/HCPCS: A0425; A0428

== ENCOUNTER → 2017-11-03 | Outpatient (REF) | payer MEDICARE, MEDICAID ==
[2017-04-03 10:55] VITALS: BMI 24.5
== END ==
LOC: ZZLCC 18:15
PROVIDERS: ATTEND Family Medicine
DX: R41.82 Altered mental status, unspecified (principal); K31.84 Gastroparesis
CPT/HCPCS: 82310; 82374; 82435; 82565; 82947; 84132; 84295; 84520

== ENCOUNTER 2018-09-10 08:03 | Inpatient (IN) | payer MEDICARE, MEDICAID ==
[2017-04-03 10:55] VITALS: Ht 185.4 cm; Wt 72.6 kg
[2018-09-10] VITALS (29 sets, daily range): BP systolic 69–111; BP diastolic 48–74
[~2018-09-10] VITALS: Ht 185.4 cm; Wt 72.6 kg
[2018-09-10] MEDS ORDERED: NS(*) 0.9% 1000 ML BAG 1,000 ML IV ONE (08:20)
--- NOTE | 2018-09-10 08:31 | ER Report ---
History and Physical Time Seen By MD: 08:15 Hx. of Stated Complaint: altered mental status HPI/ROS CHIEF COMPLAINT: Abscess rule out sepsis HISTORY OF PRESENT ILLNESS: 68-year-old male comes emergency Department today with a complaint of potential sepsis and possible scrotal cellulitis. Patient is a multiple sclerosis patient bedbound and a controlled living environment. Patient's doctor reportedly was given information that this patient potential abscess and/or cellulitic changes consisted in the scrotal area and he was sent here for emergent evaluation. Arrival here he was obvious that he had a large significant amount of drainage from a abscess within the scrotal area. Patient was in significant lots of pain and discomfort in that region. Patient unable to give any additional history at this time. REVIEW OF SYSTEMS: Respiratory: No cough, no dyspnea. Cardiovascular: No chest pain, no palpitations. Gastrointestinal: No vomiting, no abdominal pain. Musculoskeletal: No back pain. Remainder of the 14 system rev: Yes Allergies: Coded Allergies: No Known Drug Allergies (Verified , 02/12/17) Home Meds Active Scripts Pantoprazole Sodium (PANTOPRAZOLE SODIUM) 40 Mg Tablet.dr, 40 MG PO QDAY for 120 Days, Clear with patient's PCP or Dr. Olson before it is weaned and then stopped Prov:JASKARAN CULLEN MD 12/23/16 Potassium Chloride (KLOR-CON 10) 10 Meq Tablet.er, 10 MEQ PO DAILY, #0 Prov:JASKARAN CULLEN MD 03/06/16 Magnesium Hydroxide (MILK OF MAGNESIA) 30 Ml Susp, 30 ML PO BID PRN for CONSTIPATION, #1 BOTTLE Prov:PATRIZIA BRUNER MD 08/24/14 Reported Medications Clonazepam (CLONAZEPAM) 0.25 Mg Tab.rapdis, 0.5 MG PO QDAY, #14 TAB 05/25/17 Promethazine Hcl (PROMETHEGAN) 25 Mg Supp.rect, 25 MG RC Q8H PRN for NAUSEA/VOMITING, SUPP.RECT 05/25/17 Omeprazole (OMEPRAZOLE) 20 Mg Capsule.dr, 1 CAP PO QDAY, CAP 05/25/17 Docusate Sodium (COLACE) 100 Mg Capsule, 100 MG PO QDAY, CAPSULE 05/25/17 Lactose-Free Food (ENSURE PLUS) 237 Ml Liquid, 237 ML PO BID 04/03/17 Cholecalciferol (Vitamin D3) (VITAMIN D3) 1,000 Unit Tablet, 1000 UNIT PO DAILY, TAB 04/03/17 Lactobacillus Combo No.13 (Probiotic Pearls Complete) 1 Each Capsule.dr, 2 CAP PO DAILY 04/03/17 Duloxetine Hcl (CYMBALTA) 30 Mg Capsule.dr, 30 MG PO QDAY, #30 CAP 04/03/17 Cranberry Fruit Concentrate (CRANBERRY) 450 Mg Tablet, 450 MG PO DAILY 04/03/17 Fentanyl (Fentanyl) 1 Each Patch.td72, 12 TD q72hr 04/02/17 Melatonin (MELATONIN) 3 Mg Tablet, 3 MG PO QHS 03/11/17 Ondansetron Hcl (ZOFRAN) 4 Mg Tablet, 8 MG PO Q4H PRN for NAUSEA, TAB 08/16/16 Hydrocodone Bit/Acetaminophen (NORCO 5-325 TABLET) 1 Each Tablet, 1 EACH PO BID PRN for PAIN, TAB 08/16/16 Multivitamin (MULTI VITAMIN DAILY) 1 Each Tablet, 1 EACH PO QDAY 02/29/16 Oxybutynin Chloride (OXYBUTYNIN CHLORIDE ER) 10 Mg Tab.er.24, 10 MG PO QDAY, TAB.SR 02/29/16 Baclofen (BACLOFEN) 20 Mg Tablet, 20 MG PO QID, #15 TAB 08/15/14 Acetaminophen (ACETAMINOPHEN) 500 Mg Tablet, 500 MG PO TID PRN for PRN, TAB 08/15/14 Bisacodyl (BISACODYL) 10 Mg Supp.rect, 10 MG RC BID PRN for CONSTIPATION, SUPP .RECT 05/02/13 Reviewed Nurses Notes: Yes Old Medical Records Reviewed: Yes Hx Smoking: No Smoking Status: Never Smoker Exposure to Second Hand Smoke?: No Hx Substance Use Disorder: Yes (POT) Hx Alcohol Use: No Constitutional Vital Sign - Last 24 Hours 09/10/18 09/10/18 09/10/18 09/10/18 08:13 08:15 08:18 08:18 Temp 98.0 Pulse 98 97 Resp 23 25 B/P (MAP) 124/70 (88) 105/66 (79) 105/66 Pulse Ox 91 95 O2 Delivery Room Air 09/10/18 09/10/18 09/10/18 09/10/18 08:30 08:33 08:45 08:48 Pulse 97 97 Resp 29 B/P (MAP) 102/73 (83) 113/79 (90) Pulse Ox 90 09/10/18 09/10/18 09/10/18 09/10/18 09:00 09:03 09:08 09:15 Pulse 91 92 Resp 19 26 B/P (MAP) 104/77 (86) 122/77 (92) Pulse Ox 93 90 09/10/18 09/10/18 09/10/18 09/10/18 09:23 09:38 09:45 09:48 Pulse 89 119 Resp 18 20 B/P (MAP) 104/70 (81) 112/82 (92) Pulse Ox 93 93 Physical Exam General Appearance: [The patient is alert, has no immediate need for airway protection and no current signs of toxicity.] Patient with significant body contracture as a baseline Eyes: Pupils equal and round no injection. Respiratory: Chest is non tender, lungs are clear to auscultation. Cardiac: regular rate and rhythm [ ] Gastrointestinal: Abdomen with G-tube placement noted Musculoskeletal: significantly limited mobility secondary to baseline medical condition Neck is supple and non tender. Extremities have full range of motion and are non tender. Skin: Examination of scrotal area shows a red erythematous large enlarged scrotum with a significant amount of continuous purulent drainage from the scrotal area itself tender to palpation [ ] DIFFERENTIAL DIAGNOSIS: After history and physical exam differential diagnosis was considered for scrotal abscess tenial abscess necrotizing fasciitis Medical Decision Making Data Points Result Diagram: 09/10/18 0832 09/10/18 0832 Laboratory Hematology Test 09/10/18 08:32 09/10/18 09:40 Red Blood Count 4.65 M/uL (4.00-5.60) Mean Corpuscular Volume 73.9 fL (80.0-96.0) Mean Corpuscular Hemoglobin 23.6 pg (26.0-33.0) Mean Corpuscular Hemoglobin Concent 32.0 g/dL (32.0-36.0) Red Cell Distribution Width 17.4 % (11.5-14.5) Mean Platelet Volume 7.2 fL (7.2-11.1) Neutrophils (%) (Auto) 80.7 % (39.4-72.5) Lymphocytes (%) (Auto) 10.7 % (17.6-49.6) Monocytes (%) (Auto) 6.6 % (4.1-12.4) Eosinophils (%) (Auto) 1.0 % (0.4-6.7) Basophils (%) (Auto) 1.0 % (0.3-1.4) Nucleated RBC Relative Count (auto) 0.0 /100WBC Neutrophils # (Auto) 15.3 K/uL (2.0-7.4) Lymphocytes # (Auto) 2.0 K/uL (1.3-3.6) Monocytes # (Auto) 1.2 K/uL (0.3-1.0) Eosinophils # (Auto) 0.2 K/uL (0.0-0.5) Basophils # (Auto) 0.2 K/uL (0.0-0.1) Nucleated RBC Absolute Count (auto) 0.00 K/uL Prothrombin Time 14.7 seconds (12.0-14.4) Prothromb Time International Ratio 1.15 Activated Partial Thromboplast Time 40 seconds (23-35) Sodium Level 138 mmol/L (137-145) Potassium Level 4.5 mmol/L (3.5-5.0) Chloride Level 103 mmol/L (98-107) Carbon Dioxide Level 18 mmol/L (22-30) Blood Urea Nitrogen 57 mg/dl (9-21) Creatinine 2.50 mg/dl (0.66-1.25) Glomerular Filtration Rate Calc 26.0 Random Glucose 148 mg/dl (75-110) Lactate 1.4 mmol/L (0.7-2.1) Calcium Level 9.0 mg/dl (8.4-10.2) Total Bilirubin 0.6 mg/dl (0.2-1.3) Aspartate Amino Transf (AST/SGOT) 18 U/L (0-35) Alanine Aminotransferase (ALT/SGPT) 30 U/L (0-56) Alkaline Phosphatase 145 U/L (0-126) Total Protein 9.4 g/dl (6.3-8.2) Albumin 3.8 g/dl (3.5-5.0) Urine Color Yellow Urine Clarity Turbid Urine pH 7.0 pH (4.8-9.5) Urine Specific Lamar 1.013 Urine Protein 100 mg/dL (NEGATIVE) Urine Glucose (UA) Negative mg/dL (NEGATIVE) Urine Ketones Trace mg/dL (NEGATIVE) Urine Blood Moderate (NEGATIVE) Urine Nitrite Negative (NEGATIVE) Urine Bilirubin Negative (NEGATIVE) Urine Urobilinogen Negative mg/dL (0.2-1.9) Urine Leukocyte Esterase Large (NEGATIVE) Urine RBC 286 /HPF (0-2/HPF) Urine WBC 1387 /HPF (0-5/HPF) Urine WBC Clumps Many /HPF Urine Squamous Epithelial Cells None /LPF (NONE-FEW) Urine Bacteria Few /HPF (NONE-FEW) Urine Mucus None /HPF (NONE-FEW) Chemistry Test 09/10/18 08:32 09/10/18 09:40 White Blood Count 18.9 k/uL (4.5-11.0) Red Blood Count 4.65 M/uL (4.00-5.60) Hemoglobin 11.0 g/dL (14.0-18.0) Hematocrit 34.3 % (42.0-52.0) Mean Corpuscular Volume 73.9 fL (80.0-96.0) Mean Corpuscular Hemoglobin 23.6 pg (26.0-33.0) Mean Corpuscular Hemoglobin Concent 32.0 g/dL (32.0-36.0) Red Cell Distribution Width 17.4 % (11.5-14.5) Platelet Count 555 K/uL (150-450) Mean Platelet Volume 7.2 fL (7.2-11.1) Neutrophils (%) (Auto) 80.7 % (39.4-72.5) Lymphocytes (%) (Auto) 10.7 % (17.6-49.6) Monocytes (%) (Auto) 6.6 % (4.1-12.4) Eosinophils (%) (Auto) 1.0 % (0.4-6.7) Basophils (%) (Auto) 1.0 % (0.3-1.4) Nucleated RBC Relative Count (auto) 0.0 /100WBC Neutrophils # (Auto) 15.3 K/uL (2.0-7.4) Lymphocytes # (Auto) 2.0 K/uL (1.3-3.6) Monocytes # (Auto) 1.2 K/uL (0.3-1.0) Eosinophils # (Auto) 0.2 K/uL (0.0-0.5) Basophils # (Auto) 0.2 K/uL (0.0-0.1) Nucleated RBC Absolute Count (auto) 0.00 K/uL Prothrombin Time 14.7 seconds (12.0-14.4) Prothromb Time International Ratio 1.15 Activated Partial Thromboplast Time 40 seconds (23-35) Glomerular Filtration Rate Calc 26.0 Lactate 1.4 mmol/L (0.7-2.1) Calcium Level 9.0 mg/dl (8.4-10.2) Total Bilirubin 0.6 mg/dl (0.2-1.3) Aspartate Amino Transf (AST/SGOT) 18 U/L (0-35) Alanine Aminotransferase (ALT/SGPT) 30 U/L (0-56) Alkaline Phosphatase 145 U/L (0-126) Total Protein 9.4 g/dl (6.3-8.2) Albumin 3.8 g/dl (3.5-5.0) Urine Color Yellow Urine Clarity Turbid Urine pH 7.0 pH (4.8-9.5) Urine Specific Lamar 1.013 Urine Protein 100 mg/dL (NEGATIVE) Urine Glucose (UA) Negative mg/dL (NEGATIVE) Urine Ketones Trace mg/dL (NEGATIVE) Urine Blood Moderate (NEGATIVE) Urine Nitrite Negative (NEGATIVE) Urine Bilirubin Negative (NEGATIVE) Urine Urobilinogen Negative mg/dL (0.2-1.9) Urine Leukocyte Esterase Large (NEGATIVE) Urine RBC 286 /HPF (0-2/HPF) Urine WBC 1387 /HPF (0-5/HPF) Urine WBC Clumps Many /HPF Urine Squamous Epithelial Cells None /LPF (NONE-FEW) Urine Bacteria Few /HPF (NONE-FEW) Urine Mucus None /HPF (NONE-FEW) Coagulation Test 09/10/18 08:32 Prothrombin Time 14.7 seconds Prothromb Time International Ratio 1.15 Activated Partial Thromboplast Time 40 seconds Urinalysis Test 09/10/18 09:40 Urine Color Yellow Urine Clarity Turbid Urine pH 7.0 pH (4.8-9.5) Urine Specific Lamar 1.013 Urine Protein 100 mg/dL (NEGATIVE) Urine Glucose (UA) Negative mg/dL (NEGATIVE) Urine Ketones Trace mg/dL (NEGATIVE) Urine Blood Moderate (NEGATIVE) Urine Nitrite Negative (NEGATIVE) Urine Bilirubin Negative (NEGATIVE) Urine Urobilinogen Negative mg/dL (0.2-1.9) Urine Leukocyte Esterase Large (NEGATIVE) Urine RBC 286 /HPF (0-2/HPF) Urine WBC 1387 /HPF (0-5/HPF) Urine WBC Clumps Many /HPF Urine Squamous Epithelial Cells None /LPF (NONE-FEW) Urine Bacteria Few /HPF (NONE-FEW) Urine Mucus None /HPF (NONE-FEW) Microbiology Microbiology Date/Time Source Procedure Growth Status 09/10/18 08:47 Blood Line Draw Blood Culture - Preliminary NO GROWTH SO FAR, SET LATE. REINCUBATED Resulted 09/10/18 08:32 Blood Line Draw Blood Culture - Preliminary NO GROWTH SO FAR, SET LATE. REINCUBATED Resulted ED Course/Re-evaluation ED Course Patient with complex scrotal abscess we taken to the OR Decision to Disposition Date: Sep 10, 2018 Decision to Disposition Time: 10:23 Depart Departure Latest Vital Signs Vital Signs Date Time Temp Pulse Resp B/P (MAP) Pulse Ox O2 Delivery O2 Flow Rate FiO2 09/10/18 09:48 119 20 93 09/10/18 09:45 112/82 (92) 09/10/18 08:18 98.0 Room Air Core Temperature (Celsius): 36.9 Impression: Primary Impression: Abscess, scrotum Condition: Improved Disposition: Admitted from ER RISSA LEON MD Sep 10, 2018 08:31
[2018-09-10] MEDS ORDERED: PIPERACILLIN/TAZO* 4.5 GM VIAL 4.5 GM in NS(*) 0.9% 100 ML MINI-BAG 100 ML IVPB ONE (08:35)
[2018-09-10] MEDS ORDERED: VANCOMYCIN(*) 1 GM VIAL 2 GM in NS(*) 0.9% 500 ML BAG 500 ML IVPB ONE (08:35)
[2018-09-10 08:47] LABS: PLATELET COUNT, AUTOMATED 555 K/uL (150-450)
[2018-09-10 08:57] LABS: INR 1.15
[2018-09-10] MEDS ORDERED: IOPAMIDOL 76% 100 ML INFUS BTL 0 ML ONE (09:00)
--- NOTE | 2018-09-10 10:14 | RADIOLOGY IMAGING REPORT ---
FACILITY: [facility] - [place] PATIENT NAME: Jared Hammond : 1950 MR: [id number] V: [id number] EXAM DATE: ORDERING PHYSICIAN: RISSA LEON TECHNOLOGIST: Location: [facility] [place] Patient: Jared Hammond : 1950 Visit/Account:[id number] Date of Sevice: 09/10/2018 ADDENDUM #1 ADDENDUM: One of the following dose optimization techniques was utilized in the performance of this exam: Autom ated exposure control; adjustment of the mA and/or kV according to the patient's size; or use of an i terative reconstruction technique. Specific details can be referenced in the facility's radiology C T exam operational policy. Report Dictated By: Francisco Petty DO at 09/10/2018 10:12 AM Report E-Signed By: Francisco Petty DO at 09/10/2018 10:12 AM ORIGINAL REPORT Technique: Helical CTA images were obtained of the pelvis without the administration of contrast. Cor onal and sagittal reformats and were obtained. HISTORY: abscess Comparison studies: October 29, 2017, July 11, 2017, June 24, 2017 FINDINGS: The exam is limited in sensitivity given absence of IV contrast. Pelvic : Suprapubic catheter noted with decompression of the urinary bladder. Prostatic calcificati ons are present Bowel: No evidence of high-grade obstruction. Moderate stool volume is noted within the rectosigmoid vault Free fluid: None. No abscess defined. Imaged portions of the abdomen again demonstrate severe bilateral hydronephrosis with multiple renal calculi. Layering debris is noted within the ureters as well as multiple foci of air within the urete rs. The kidneys are incompletely evaluated. There is air again noted within visualized portions of th e left renal collecting system and pelves. Vasculature: Infrarenal abdominal aortic aneurysm measures 3.9 cm. Unchanged. Atherosclerotic changes present. Lymph node: Prominent periaortic lymph nodes; not pathologically enlarged. Musculoskeletal: Severe degenerative changes within the femoroacetabular joints axial skeleton. There remains a small right joint effusion within the hip. Patient is osteopenic degenerative changes note d within the axial skeleton. Fat-containing inguinal hernias noted. IMPRESSION: 1. No evidence of pelvic abscess. 2. Severe bilateral hydronephrosis and hydroureter with air tracking along the ureters and extending into the visualized portion of the left kidney. Suprapubic catheter in place. 3. Unchanged infrarenal abdominal aortic aneurysm. 4. Incidental and chronic findings as above. Report Dictated By: Francisco Petty DO at 09/10/2018 9:53 AM Report E-Signed By: Francisco Petty DO at 09/10/2018 10:07 AM WSN:[id number]
--- NOTE | 2018-09-10 10:33 | Gen Surgery History & Physical ---
History of Present Illness Chief Complaint Confusion History of Present Illness 68-year-old gentleman with severe multiple sclerosis and severe musculoskeletal contractures, bedridden, is brought in by [facility] staff with increasing confusion and altered mental status. In the ER, he was found to have pus draining from his scrotum. CT scan reveals a scrotal abscess and markedly dilated hydroureters with some gas tracking along the ureters. 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 I am being asked to evaluate and begin treatment of this patient. History Problems: (1) Suprapubic catheter Status: Chronic (2) Depression Status: Chronic (3) Stroke Status: Chronic (4) Recurrent UTI Status: Chronic (5) Multiple sclerosis Status: Chronic (6) Status post amputation of toe of right foot Status: Resolved (7) History of suprapubic catheter Status: Chronic Home Meds Active Scripts Pantoprazole Sodium (PANTOPRAZOLE SODIUM) 40 Mg Tablet., 40 MG PO QDAY for 120 Days, Clear with patient's PCP or Dr. Garcia before it is weaned and then stopped Prov:JASKARAN CULLEN MD 12/23/16 Potassium Chloride (KLOR-CON 10) 10 Meq Tablet.er, 10 MEQ PO DAILY, #0 Prov:JASKARAN CULLEN MD 03/06/16 Magnesium Hydroxide (MILK OF MAGNESIA) 30 Ml Susp, 30 ML PO BID PRN for CONSTIPATION, #1 BOTTLE Prov:PATRIZIA BRUNER MD 08/24/14 Reported Medications Clonazepam (CLONAZEPAM) 0.25 Mg Tab.rapdis, 0.5 MG PO QDAY, #14 TAB 05/25/17 Promethazine Hcl (PROMETHEGAN) 25 Mg Supp.rect, 25 MG RC Q8H PRN for NAUSEA/VOM ITING, SUPP.RECT 05/25/17 Omeprazole (OMEPRAZOLE) 20 Mg Capsule.dr, 1 CAP PO QDAY, CAP 05/25/17 Docusate Sodium (COLACE) 100 Mg Capsule, 100 MG PO QDAY, CAPSULE 05/25/17 Lactose-Free Food (ENSURE PLUS) 237 Ml Liquid, 237 ML PO BID 04/03/17 Cholecalciferol (Vitamin D3) (VITAMIN D3) 1,000 Unit Tablet, 1000 UNIT PO DAILY, TAB 04/03/17 Lactobacillus Combo No.13 (Probiotic Pearls Complete) 1 Each Capsule.dr, 2 CAP PO DAILY 04/03/17 Duloxetine Hcl (CYMBALTA) 30 Mg Capsule.dr, 30 MG PO QDAY, #30 CAP 04/03/17 Cranberry Fruit Concentrate (CRANBERRY) 450 Mg Tablet, 450 MG PO DAILY 04/03/17 Fentanyl (Fentanyl) 1 Each Patch.td72, 12 TD q72hr 04/02/17 Melatonin (MELATONIN) 3 Mg Tablet, 3 MG PO QHS 03/11/17 Ondansetron Hcl (ZOFRAN) 4 Mg Tablet, 8 MG PO Q4H PRN for NAUSEA, TAB 08/16/16 Hydrocodone Bit/Acetaminophen (NORCO 5-325 TABLET) 1 Each Tablet, 1 EACH PO BID PRN for PAIN, TAB 08/16/16 Multivitamin (MULTI VITAMIN DAILY) 1 Each Tablet, 1 EACH PO QDAY 02/29/16 Oxybutynin Chloride (OXYBUTYNIN CHLORIDE ER) 10 Mg Tab.er.24, 10 MG PO QDAY, TAB.SR 02/29/16 Baclofen (BACLOFEN) 20 Mg Tablet, 20 MG PO QID, #15 TAB 08/15/14 Acetaminophen (ACETAMINOPHEN) 500 Mg Tablet, 500 MG PO TID PRN for PRN, TAB 08/15/14 Bisacodyl (BISACODYL) 10 Mg Supp.rect, 10 MG RC BID PRN for CONSTIPATION, SUPP.RECT 05/02/13 Allergies: Coded Allergies: No Known Drug Allergies (Verified , 02/12/17) Patient History: FH: dementia MOTHER, Age:unk FH: emphysema FATHER, , Age:72 Sepsis secondary to UTI Review of Systems All Systems Reviewed/Normal: Yes, Except as Noted Exam General Appearance: Alert, Awake, No Acute Distress, Afebrile Neuro: Other (difficult to complete a fluoroscopy neurologic exam due to his severe musculoskeletal contractures and his confusion) Eyes: PERRLA Cardiovascular: Regular Rate and Rhythm Respiratory: Clear to Auscultation GI: Abd Soft and Non-Tender, Other (suprapubic catheter in place, catheter site is clean and dry without erythema) : Other (raising of his scrotum reveals a small hole and copious amounts of purulent material extruded from this hole. This area is markedly tender to him when manipulated.) Extremities: Warm, Perfused Medical Decision Making Data Points Result Diagram: 09/10/18 0832 09/10/18 0832 Assessment and Plan Problems: (1) Sepsis Status: Acute Assessment & Plan: 09/10/18: Likely related to scrotal abscess. We'll proceed with drainage of the abscess and place on appropriate antibiotics including Zosyn and vancomycin. Will ask the hospitalist to consult and provide input on managing patient comorbidities and antibiotic coverage. (2) Abscess of scrotal wall Status: Acute Assessment & Plan: 09/10/18:2 OR today for incision and drainage of scrotal abscess. (3) Altered mental status Status: Acute Assessment & Plan: 09/10/18: Likely related to the infection. We will treat with antibiotics and abscess drainage and follow his mental status. (4) Hydroureter Status: Chronic Assessment & Plan: 09/10/18: Will ask urology to evaluate this and determine if anything needs to be done such as a nephrostomy tube Central Venous Access Medical Necessity for Access: Hemodynamic Monitoring, IV Access, Medication Administration Condition Guarded Time Spent: < 30 min Venous Thromboembolism VTE Risk Physician Assess for VTE Risk: Yes Patient's VTE Risk: Low VTE Diagnostic Test 2 Days Prior to Admit: No Antithrombotics Is Pt On Any Antithrombotics?: No Problem Qualifiers (1) Sepsis: Sepsis type: sepsis due to unspecified organism Qualified Codes: A41.9 - Sepsis, unspecified organism (2) Altered mental status: Altered mental status type: delirium Qualified Codes: R41.0 - Disorientation, unspecified CRISTA GARCIA MD Sep 10, 2018 10:33
[2018-09-10] MEDS ORDERED: NORMOSOL R SOLN(*) 1000 ML BAG 1,000 ML IV ONE (10:40)
[2018-09-10] MEDS ORDERED: ROPIVACAINE 0.5% 20 ML VIAL ONE (11:01)
[2018-09-10] MEDS ORDERED: fentaNYL CITR 100 MCG/2 ML AMP ONE (11:04)
[2018-09-10] MEDS ORDERED: ONDANSETRON 4 MG/2 ML VIAL ONE (11:05)
[2018-09-10] MEDS ORDERED: ROCURONIUM BR 10 MG/ML 5 ML SY 5 ML ONE (11:05)
[2018-09-10] MEDS ORDERED: PROPOFOL EMUL(*) 10MG/ML 20 ML 20 ML ONE (11:05)
[2018-09-10] MEDS ORDERED: DEXAMETHASONE SOD PHOS 10MG/ML ONE (11:05)
[2018-09-10] MEDS ORDERED: LIDOCAINE MPF 1% 5 ML VIAL ONE (11:05)
[2018-09-10] MEDS ORDERED: PROMETHAZINE HCL(*) 25 MG SUPP PR PRN (11:55)
[2018-09-10] MEDS ORDERED: ONDANSETRON 4 MG/2 ML VIAL IVP PRN (11:55)
[2018-09-10] MEDS ORDERED: MAGNESIUM HYDROXIDE* 30ML UDCP PO PRN (11:55)
[2018-09-10] MEDS ORDERED: ONDANSETRON 4 MG TAB PO PRN (11:55)
[2018-09-10] MEDS ORDERED: BISACODYL 5 MG TABEC PO PRN (11:55)
[2018-09-10] MEDS ORDERED: FLUSH 10 ML SYR IVP PRN (11:55)
[2018-09-10] MEDS ORDERED: PIPERACILLIN/TAZO*3.375GM VIAL 3.375 GM in NS(*) 0.9% 100 ML MINI-BAG 100 ML IVPB SCH (12:00)
--- NOTE | 2018-09-10 12:09 | Post Operative Progress Note ---
Post Operative Progress Note Date: Sep 10, 2018 Time: 12:01 Surgeon: Whitney Dictation number: [id number] Anesthesia: GETA by Dr. Bergeron Pre-Op Diagnosis: Scrotal abscess Post-Op Diagnosis: TAMIE Findings: C/W dx Procedure(s): I/D scrotal abscess Specimen Removed:(May be N/A): Aerobic and anaerobic cultures Complications: None Fluids: See anesthesia record Estimated Blood Loss: Minimal Date OP Note Dictated: Sep 10, 2018 Time OP Note Dictated: 12:03 CRISTA GARCIA MD Sep 10, 2018 12:09
[2018-09-10] MEDS ORDERED: BISACODYL 10 MG SUPP PR PRN (12:30)
--- NOTE | 2018-09-10 12:33 | OPERATIVE REPORT 1 ---
EVENT DATE: September 10, 2018 SURGEON: Mo Olson MD ANESTHESIOLOGIST: Donald Bergeron MD ANESTHESIA: General endotracheal. PREOPERATIVE DIAGNOSIS Scrotal abscess. POSTOPERATIVE DIAGNOSIS Scrotal abscess. PROCEDURE PERFORMED Incision and drainage of scrotal abscess. COMPLICATIONS None. CONDITION Stable. ESTIMATED BLOOD LOSS Minimal. SPECIMENS Aerobic and anaerobic cultures sent from the abscess fluid. INDICATIONS This is a 68-year-old chronically ill gentleman who lives at [facility]. He has severe multiple sclerosis with severe musculoskeletal contractures and is bedridden. He was brought in from [facility] with change in mental status where he has become noncommunicative and in the ER was found to have a scrotal abscess. On exam, his scrotum is severely tender to palpation and there is at least 1 hole draining a significant amount of purulent fluid. I have admitted the patient and started IV antibiotics and he is consented to go to the operating room for incision and drainage of the abscess via his medical Power of Physician Scientist. DESCRIPTION OF PROCEDURE The patient was brought to the operating room and placed supine on the operating table. General endotracheal anesthesia was administered and his scrotum was prepped and draped in sterile fashion. A timeout was completed and I anesthetized the skin with 0.5% ropivacaine plain. There were two holes in the scrotum draining purulent material, so I simply used scissors and cut the scrotal skin to connect the two holes. This opened up into a cavity that went quite extensively up into the scrotum. I am unclear if it actually goes into the scrotal cavity or if it is all subcutaneous, but there may be palpable testicle, but I cannot be sure as the tissue is all inflamed. I then pressure irrigated the cavity with normal saline and then packed with dry 4 x 4 Gauze and then placed Gauze over this, followed by an ABD pad. He was awakened and extubated in the operating room and transferred to the recovery room in stable condition having tolerated the procedure without any apparent problems. SUSY
[2018-09-10] MEDS: BACLOFEN 10 MG TAB PO SCH ×3 (13:00→20:38)
--- NOTE | 2018-09-10 13:30 | Pharmacy Note ---
Vancomycin Management Note Vanco Dosing Note Pharmacy Services Pharmacokinetic Dosing Consult, Vancomycin Pharmacy has been consulted for dosing and monitoring of vancomycin for 68 M for TESTICULAR ABSCESS. Pertinent Past Medical History: MS-BEDRIDDEN Antibiotics prior to admission; Outpatient RX shows fill of Macrobid 09/04 Additional Antimicrobials: Primaxin 200mg Q6H (renal dosing) Vanco 2g Load 09/10/18 Zosyn 3.375g x 1 dose in ER 09/10/18 Patient Information: Height (cm): approximately 68" per nurse estimate (patient is bedridden and not awake at this time) Actual Body Weight (ABW): 72.7 kg Pertinent Lab Tests WHITE BLOOD COUNT 18.9 NEUTROPHILS 80.7% BLOOD UREA NITROGEN 57 SCR 2.5 VANCOMYCIN TROUGH VANCOMYCIN RANDOM Culture Results: BLOOD URINE SPUTUM WOUND: g+ cocci Assessment: CrCl ~25ml/min Renal function is poor at this time, likely due to current septic condition. Baseline historical renal function is good, expecting improvement with fluids and abx treatment of infection. Vancomycin Monitoring Assessment Goal Vancomycin Trough Level: 15-20 Plan: 1) Vancomycin 25 mg/kg loading dose (based on ABW): 2000 mg IV x 1 in ER 09/10/18 @0900 2) Vancomycin maintenance dose (based on ABW): 1250mg Q24H due to poor renal clearance at this time. Expect improvement over next 24-48 hrs. 3) Vancomycin monitoring: Random level planned for 09/10/18 @2100hrs (12 hrs after load dose) due to poor renal status. Pharmacy will continue to monitor daily and adjust regimen as appropriate. Thank you for the consult. LOS JARQUIN Sep 10, 2018 13:30
[2018-09-10] MEDS: MORPHINE 2 MG/ML SYR IVP PRN ×2 (14:20→17:16)
[2018-09-10] MEDS: CILASTA IVPB SCH ×2 (14:20→20:36)
[2018-09-10] MEDS: IMIPENEM IVPB SCH ×2 (14:20→20:36)
[2018-09-10] MEDS: NS 0.9% IVPB SCH ×2 (14:20→20:36)
--- NOTE | 2018-09-10 16:50 | Hospitalist Consultation ---
History of Present Illness Requesting Physician Dr Olson Reason for Consult Medical Management Comorbidities, acute infection Chief Complaint Scrotal abscess. History of Present Illness 68M presented with decreased LOC. PMHx significnat for MS, contractures. Presented with decreased level of interactivity and was found to have scrotal abscess, taken to OR for debridement. Tolerated procedure well. He is currently non-verbal which is change from baseline. History Problems: (1) Multiple sclerosis Status: Chronic (2) Stroke Status: Chronic Home Meds Active Scripts Pantoprazole Sodium (PANTOPRAZOLE SODIUM) 40 Mg Tablet.dr, 40 MG PO QDAY for 120 Days, Clear with patient's PCP or Dr. Olson before it is weaned and then stopped Prov:JASKARAN CULLEN MD 12/23/16 Potassium Chloride (KLOR-CON 10) 10 Meq Tablet.er, 10 MEQ PO DAILY, #0 Prov:JASKARAN CULLEN MD 03/06/16 Magnesium Hydroxide (MILK OF MAGNESIA) 30 Ml Susp, 30 ML PO BID PRN for CONSTIPATION, #1 BOTTLE Prov:PATRIZIA BRUNER MD 08/24/14 Reported Medications Clonazepam (CLONAZEPAM) 0.25 Mg Tab.rapdis, 0.5 MG PO QDAY, #14 TAB 05/25/17 Promethazine Hcl (PROMETHEGAN) 25 Mg Supp.rect, 25 MG RC Q8H PRN for NAUSEA/VOMITING, SUPP.RECT 05/25/17 Omeprazole (OMEPRAZOLE) 20 Mg Capsule.dr, 1 CAP PO QDAY, CAP 05/25/17 Docusate Sodium (COLACE) 100 Mg Capsule, 100 MG PO QDAY, CAPSULE 05/25/17 Lactose-Free Food (ENSURE PLUS) 237 Ml Liquid, 237 ML PO BID 04/03/17 Cholecalciferol (Vitamin D3) (VITAMIN D3) 1,000 Unit Tablet, 1000 UNIT PO DAILY, TAB 04/03/17 Lactobacillus Combo No.13 (Probiotic Pearls Complete) 1 Each Capsule.dr, 2 CAP PO DAILY 04/03/17 Duloxetine Hcl (CYMBALTA) 30 Mg Capsule.dr, 30 MG PO QDAY, #30 CAP 04/03/17 Cranberry Fruit Concentrate (CRANBERRY) 450 Mg Tablet, 450 MG PO DAILY 04/03/17 Fentanyl (Fentanyl) 1 Each Patch.td72, 12 TD q72hr 04/02/17 Melatonin (MELATONIN) 3 Mg Tablet, 3 MG PO QHS 03/11/17 Ondansetron Hcl (ZOFRAN) 4 Mg Tablet, 8 MG PO Q4H PRN for NAUSEA, TAB 08/16/16 Hydrocodone Bit/Acetaminophen (NORCO 5-325 TABLET) 1 Each Tablet, 1 EACH PO BID PRN for PAIN, TAB 08/16/16 Multivitamin (MULTI VITAMIN DAILY) 1 Each Tablet, 1 EACH PO QDAY 02/29/16 Oxybutynin Chloride (OXYBUTYNIN CHLORIDE ER) 10 Mg Tab.er.24, 10 MG PO QDAY, TAB.SR 02/29/16 Baclofen (BACLOFEN) 20 Mg Tablet, 20 MG PO QID, #15 TAB 08/15/14 Acetaminophen (ACETAMINOPHEN) 500 Mg Tablet, 500 MG PO TID PRN for PRN, TAB 08/15/14 Bisacodyl (BISACODYL) 10 Mg Supp.rect, 10 MG RC BID PRN for CONSTIPATION, SUPP.RECT 05/02/13 Allergies: Coded Allergies: No Known Drug Allergies (Verified , 02/12/17) Patient History: FH: dementia MOTHER, Age:unk FH: emphysema FATHER, , Age:70 Sepsis secondary to UTI Unobtainable due to patient's condition Hx Smoking: No Smoking Status: Never Smoker Exposure to Second Hand Smoke?: No Caffeine Intake: Coffee Caffeine/Cups Per Day: 3 Hx Alcohol Use: Yes Hx Substance Use Disorder: Yes (POT) Social Drug Use: Currently Social Drugs: Marijuana Amount Of Social Drug/s Used: States, "if it's around, I smoke it." Review of Systems Other unable to obtain Exam Vital Signs Vital Signs Date Time Temp Pulse Resp B/P (MAP) Pulse Ox O2 Delivery O2 Flow Rate FiO2 09/10/18 14:34 67 101/74 (83) 91 Room Air 09/10/18 14:19 18 09/10/18 13:05 97.9 2.0 General Appearance: Awake, No Acute Distress Cardiovascular: Normal Rhythm & Peripheral Pulses Respiratory: No Respiratory Distress Musculoskeletal: Other (significant contractures all extremities) Medical Decision Making Data Points Result Diagram: 09/10/18 0832 09/10/18 0832 Assessment and Plan Problems: (1) Abscess, scrotum Status: Acute Assessment & Plan: Post debridement. Continue empiric vancomycin and Primaxin. (2) ARF (acute renal failure) Status: Acute Assessment & Plan: Baseline creatinine appears to be near 1.2-1.5, elevated at 2.5 on admission. (3) Multiple sclerosis Status: Chronic Assessment & Plan: Decrease baclofen in setting of ADAN. Possible this is contributing to decreased interaction with caregivers. (4) Sepsis Status: Acute Assessment & Plan: Secondary to scrotal abscess, as above. (5) Altered mental status Status: Acute Assessment & Plan: Likely due to infection, baclofen could be contributing. (6) Leukocytosis Status: Acute Assessment & Plan: Secondary to infection, monitor. Central Venous Access Medical Necessity for Access: Hemodynamic Monitoring, IV Access, Medication Administration Venous Thromboembolism Antithrombotics Is Pt On Any Antithrombotics?: No Exam Sepsis Risk: No Definite Risk Problem Qualifiers (1) Sepsis: Sepsis type: sepsis due to unspecified organism Qualified Codes: A41.9 - Sep sis, unspecified organism (2) Altered mental status: Altered mental status type: delirium Qualified Codes: R41.0 - Disorientation, unspecified ADARSH HERNANDEZ DO Sep 10, 2018 16:50
[2018-09-10] MEDS: MELATONIN 3 MG TAB PO SCH (20:43)
[2018-09-10] MEDS ORDERED: [UNRECOGNIZED DRUG - REMARK] PO SCH (21:00)
[2018-09-10] MEDS: NS(*) 0.9% 1000 ML BAG 1,000 ML IV PRN ×2 (21:46→23:15)
[2018-09-11] VITALS (20 sets, daily range): BP systolic 72–125; BP diastolic 48–72
[2018-09-11] MEDS: NS(*) 0.9% 1000 ML BAG 1,000 ML IV PRN ×2 (00:23→13:32)
[2018-09-11] MEDS: NS 0.9% IVPB SCH ×4 (01:24→20:20)
[2018-09-11] MEDS: IMIPENEM IVPB SCH ×4 (01:24→20:20)
[2018-09-11] MEDS: CILASTA IVPB SCH ×4 (01:24→20:20)
[2018-09-11 06:28] LABS: PLATELET COUNT, AUTOMATED 312 K/uL (150-450)
--- NOTE | 2018-09-11 08:33 | General Surgery Progress Note ---
Subjective Progress Notes Subjective C/O scrotal pain. Patient now communicative. Physical Exam Vital Signs Date Time Temp Pulse Resp B/P (MAP) Pulse Ox O2 Delivery O2 Flow Rate FiO2 09/11/18 07:57 96 09/11/18 07:57 Room Air 09/11/18 07:53 98.0 60 16 88/53 (65) 09/10/18 13:05 2.0 Intake and Output 09/11/18 07:02 Intake Total 3703 ml Output Total 885 ml Balance 2818 ml Intake Oral 750 ml IV Total 2953 ml Output Urine Total 885 ml General Appearance: Alert, Awake, No Acute Distress, Afebrile : Other (Scrotal wound is clean, minimal drainage) Extremities: Warm, Perfused Result Diagram: 09/11/1861909/11/18619 Assessment and Plan Problems: (1) Sepsis Status: Resolved Assessment & Plan: 09/10/18: Likely related to scrotal abscess. We'll proceed with drainage of the abscess and place on appropriate antibiotics including Zosyn and vancomycin. Will ask the hospitalist to consult and provide input on managing patient comorbidities and antibiotic coverage. 09/11/18: Improving. Pt now communicative and back to his baseline. Continue wound care. Will send back to [facility] tomorrow if he continues to be stable. (2) Abscess of scrotal wall Status: Resolved Assessment & Plan: 09/10/18:2 OR today for incision and drainage of scrotal abscess. (3) Altered mental status Status: Resolved Assessment & Plan: 09/10/18: Likely related to the infection. We will treat with antibiotics and abscess drainage and follow his mental status. (4) Hydroureter Status: Chronic Assessment & Plan: 09/10/18: Will ask urology to evaluate this and determine if anything needs to be done such as a nephrostomy tube 09/11/18: Dr. Glynn, incident response specialist Urologist, contacted via telephone, he'll see patient today and provide further w/u and recommendations. Central Venous Access Medical Necessity for Access: Hemodynamic Monitoring, IV Access, Medication Administration Condition Stable. Time Spent: < 30 min Exam Sepsis Risk: No Definite Risk Problem Qualifiers (1) Sepsis: Sepsis type: sepsis due to unspecified organism Qualified Codes: A41.9 - Sepsis, unspecified organism (2) Altered mental status: Altered mental status type: delirium Qualified Codes: R41.0 - Disorientation, unspecified CRISTA GARCIA MD Sep 11, 2018 08:30
[2018-09-11] MEDS: DOCUSATE SODIUM 100 MG CAP PO SCH (08:59)
[2018-09-11] MEDS: LACTOBACILLUS ACIDOPHILUS TAB PO SCH (08:59)
[2018-09-11] MEDS: CHOLECALCIFEROL 1000 UNIT TAB PO SCH (08:59)
[2018-09-11] MEDS: ENOXAPARIN 30 MG/0.3 ML SYR SC SCH (08:59)
[2018-09-11] MEDS: DULoxetine HCL 20 MG CAPCR PO SCH (08:59)
[2018-09-11] MEDS: OXYBUTYNIN CHL XL 5 MG TABCR PO SCH (08:59)
[2018-09-11] MEDS: CRANBERRY PO SCH (08:59)
[2018-09-11] MEDS: PANTOPRAZOLE SOD 40 MG TABEC PO SCH (09:00)
[2018-09-11] MEDS: POTASSIUM CHL 10 MEQ TABCR PO SCH (09:00)
[2018-09-11] MEDS ORDERED: clonazePAM 0.5 MG ODT TABDP PO PRN (09:00)
[2018-09-11] MEDS: BACLOFEN 10 MG TAB PO SCH ×5 (09:00→20:20)
[2018-09-11] MEDS ORDERED: VANCOMYCIN(*) 1 GM VIAL 1 GM, VANCOMYCIN (*) 0.5 GM VIAL 0.25 GM in NS(*) 0.9% 250 ML B... IVPB SCH (09:00)
[2018-09-11] MEDS: MULTIVITAMINS TAB PO SCH (09:00)
--- NOTE | 2018-09-11 09:13 | NUR ---
0900 vanco trough cancelled due to pharmacy request due to close proximity of loading dose and next scheduled dose. Will check in 24 hours at 0900 - 09/12/18
--- NOTE | 2018-09-11 10:36 | Medical Nutrition Therapy ---
Nutrition Anthropometrics Height (Inches): 73.00 Height (Calculated Centimeters: 185.215101 Weight (Pounds): 160 Weight (Calculated Kilograms): 72.745 BMI: 21.1 Manish Nutrition Score: Probably Inadequate Manish Nutrition Risk Score: 10 Dietary Referral Nutrition Risk Factors: Unplanned Loss >10lbs Nutrition Risk Comment: Nutritional Diagnosis Nutritional Risk Acuity 1: Acute/ES Renal Nutritional Risk Acuity 2: Abcess/Non-Healing Wound Nutritional Risk Acuity 3: Fair Appetite Past Medical History: advanced MS, recurrent UTI, stroke, gastric outlet obstruction, gastroparesis Nutritional Acuity: 1-High Nutrition Diagnosis: Involuntary Wt. Loss, Inablility to Feed Self (r/t MS) Nutrition Etiology: Physiological Causes Nutrition Problem/Etiology/Sym: AEB [facility] staff reporting 10# unplanned wt loss, [facility] staff reporting usual wt 181# Energy Requirement: 2400 (MSJ X 1.3 SF) Protein Requirement: 94 (1.3gm/kg) Fluid Requirement: 2160 (30ml/kg) Diet Type: Diet as Tolerated APOLINAR/REG Nutrition Intervention: Cont diet as ordered, Encourage intake Additional Diet Restrictions: PROVIDE NUTRTIONAL SUPPLMENT WITH EACH MEAL Nutrition Monitoring & Eval Nutrition Goals: Eat 75-100% Meal RD Patient Assessment Time: [address] Assessment Type: RD Assessment Patient Nutrition Acuity: 1-High Follow Up Date: Sep 14, 2018 Nutritional Comment: 09/11 Pt admitted with scrotal absess and ARF. ARF improving but cont elevated BUN at 45, creatinine at 1.7, GFR at 40.5. Pt has decreased protein, K+, Phos, Na and fluid needs r/t ARF but increased protein needs r/t absess. Pt on regular diet and ate 50% of first meal in facility. Will provide nutr supplment to ensure pt consumes adequate protein. Pt has demonstrated wt loss per [facility] staff reported usual wt of 181#. BMI is in low end of desired rwt range. Pt requires help with feeding which may be contributing to wt loss. Will cont to monitor and encourage intake. LEÓN BARRIOS Sep 11, 2018 10:17
--- NOTE | 2018-09-11 10:44 | Hospitalist Progress Note ---
Subjective Progress Notes Subjective He is awake and alert. He responds slowly, but appropriately to questions. Physical Exam Vital Signs Date Time Temp Pulse Resp B/P (MAP) Pulse Ox O2 Delivery O2 Flow Rate FiO2 09/11/18 07:57 96 09/11/18 07:57 Room Air 09/11/18 07:53 98.0 60 16 88/53 (65) 09/10/18 13:05 2.0 Intake and Output 09/11/18 07:02 Intake Total 3703 ml Output Total 885 ml Balance 2818 ml Intake Oral 750 ml IV Total 2953 ml Output Urine Total 885 ml General Appearance: Alert, Awake Neuro: Other (essentially near quadriplegia (unchanged/chronic)) Cardiovascular: Regular Rate and Rhythm Respiratory: Other (Poor effort, but clear) GI: Other (soft/BS present/suprapubic cath site looks fairly clean) : Other (wound dressed) Extremities: Warm, Perfused, Other (contractures all four extremities) Result Diagram: 09/11/1861909/11/18619 Assessment and Plan Problems: (1) Abscess, scrotum Status: Acute Assessment & Plan: He had debridement with Dr. Olson. Continue empiric IV va ncomycin and Primaxin. Cultures pending. (2) ARF (acute renal failure) Status: Acute Assessment & Plan: Improved. Creatinine is now 1.7. Baseline creatinine appears to be near 1.2-1.5, elevated at 2.5 on admission. (3) Multiple sclerosis Status: Chronic Assessment & Plan: We have decreased baclofen in setting of ADAN. It is possible this was contributing to decreased interaction with caregivers. (4) Sepsis Status: Resolved Assessment & Plan: Secondary to scrotal abscess, as above. (5) Altered mental status Status: Resolved Assessment & Plan: Likely due to infection, baclofen could be contributing. (6) Leukocytosis Status: Acute Assessment & Plan: Improved/resolved. Secondary to infection, monitor. Central Venous Access Medical Necessity for Access: Hemodynamic Monitoring, IV Access, Medication Administration Exam Sepsis Risk: No Definite Risk Problem Qualifiers (1) Sepsis: Sepsis type: sepsis due to unspecified organism Qualified Codes: A41.9 - Sepsis, unspecified organism (2) Altered mental status: Altered mental status type: delirium Qualified Codes: R41.0 - Disorientation, unspecified NAKIA BRUNER MD Sep 11, 2018 10:44
--- NOTE | 2018-09-11 12:59 | General Surgery Progress Note ---
Subjective Progress Notes Subjective Generally stable. Had fever, now afebrile. vss. UO OK. eating OK scrotal abscess site good--healing by secondary intention. Min drainage. Less tender. Decreased erythema. No ascending infection. Labs noted Plan--continue antibiotics. to see patient for hydro. Physical Exam Vital Signs Date Time Temp Pulse Resp B/P (MAP) Pulse Ox O2 Delivery O2 Flow Rate FiO2 09/11/18 11:39 98.8 94 16 125/62 (83) 93 Room Air 09/10/18 13:05 2.0 Intake and Output 09/11/18 07:02 Intake Total 3703 ml Output Total 885 ml Balance 2818 ml Intake Oral 750 ml IV Total 2953 ml Output Urine Total 885 ml Result Diagram: 09/11/1861909/11/18619 Assessment and Plan Problems: (1) Sepsis Status: Resolved Assessment & Plan: 09/10/18: Likely related to scrotal abscess. We'll proceed with drainage of the abscess and place on appropriate antibiotics including Zosyn and vancomycin. Will ask the hospitalist to consult and provide input on managing patient comorbidities and antibiotic coverage. 09/11/18: Improving. Pt now communicative and back to his baseline. Continue wound care. Will send back to [facility] tomorrow if he continues to be stable. (2) Abscess of scrotal wall Status: Resolved Assessment & Plan: 09/10/18:2 OR today for incision and drainage of scrotal ab scess. (3) Altered mental status Status: Resolved Assessment & Plan: 09/10/18: Likely related to the infection. We will treat with antibiotics and abscess drainage and follow his mental status. (4) Hydroureter Status: Chronic Assessment & Plan: 09/10/18: Will ask urology to evaluate this and determine if anything needs to be done such as a nephrostomy tube 09/11/18: Dr. Glynn, incident response specialist Urologist, contacted via telephone, he'll see patient today and provide further w/u and recommendations. Central Venous Access Medical Necessity for Access: Hemodynamic Monitoring, IV Access, Medication Administration Exam Sepsis Risk: No Definite Risk Problem Qualifiers (1) Sepsis: Sepsis type: sepsis due to unspecified organism Qualified Codes: A41.9 - Sepsis, unspecified organism (2) Altered mental status: Altered mental status type: delirium Qualified Codes: R41.0 - Disorientation, unspecified EILEEN TIMMONS MD Sep 11, 2018 12:59
--- NOTE | 2018-09-11 14:58 | Antimicrobial Stewardship ---
Antimicrobial Stewardship Empiricly appropriate: Yes Comment Initially given Zosyn and Vancomycin but is now on Primaxin and Vancomycin for scrotal abscess and sepsis. Approriate Cultures done: Yes (mixed growth in wound cultures/NGTD in blood cultures) Renal/Hepatic dosing: Yes Serum concentration checked: Yes Comment Monitoring Vanco troughs with a Tr of 21.64 today and another scheduled for tomorrow am. Reviewed for Drug Interaction: Yes Monitored for Toxicities: Yes Clinically stable/improving: Yes Comment WBC have returned to normal and abscess has been drained. IV to PO Opportunity: Yes Determine cumulative duration: 5-14 days CAROL THOMPSON Sep 11, 2018 14:58
--- NOTE | 2018-09-11 17:34 | General Surgery Progress Note ---
Subjective Progress Notes Subjective generally stable. Physical Exam Vital Signs Date Time Temp Pulse Resp B/P (MAP) Pulse Ox O2 Delivery O2 Flow Rate FiO2 09/11/18 14:39 99.3 95 16 101/59 (73) 94 Room Air 09/10/18 13:05 2.0 Intake and Output 09/11/18 07:02 Intake Total 3703 ml Output Total 885 ml Balance 2818 ml Intake Oral 750 ml IV Total 2953 ml Output Urine Total 885 ml Result Diagram: 09/11/18 0620 09/11/18 06 Assessment and Plan Problems: (1) Sepsis Status: Resolved Assessment & Plan: 09/10/18: Likely related to scrotal abscess. We'll proceed with drainage of the abscess and place on appropriate antibiotics including Zosyn and vancomycin. Will ask the hospitalist to consult and provide input on managing patient comorbidities and antibiotic coverage. 09/11/18: Improving. Pt now communicative and back to his baseline. Continue wound care. Will send back to [facility] tomorrow if he continues to be stable. (2) Abscess of scrotal wall Status: Resolved Assessment & Plan: 09/10/18:2 OR today for incision and drainage of scrotal abscess. (3) Altered mental status Status: Resolved Assessment & Plan: 09/10/18: Likely related to the infection. We will treat with antibiotics and abscess drainage and follow his mental status. (4) Hydroureter Status: Chronic Assessment & Plan: 09/10/18: Will ask urology to evaluate this and determine if anything needs to be done such as a nephrostomy tube 09/11/18: Dr. Glynn, secondary market manager Urologist, contacted via telephone, he'll see patient today and provide further w/u and recommendations. Central Venous Access Medical Necessity for Access: Hemodynamic Monitoring, IV Access, Medication Administration Exam Sepsis Risk: No Definite Risk Problem Qualifiers (1) Sepsis: Sepsis type: sepsis due to unspecified organism Qualified Codes: A41.9 - Sepsis, unspecified organism (2) Altered mental status: Altered mental status type: delirium Qualified Codes: R41.0 - Disorientation, unspecified EILEEN TIMMONS MD Sep 11, 2018 17:34
[2018-09-11] MEDS: MELATONIN 3 MG TAB PO SCH (20:20)
--- NOTE | 2018-09-11 20:50 | CONSULTATION ---
EVENT DATE: September 11, 2018 This is a 68-year-old white male with multiple sclerosis and diabetes whom I was asked to evaluate for bilateral ureteral pyelocaliectasis, bilateral ureterorenal efflux, air in the urinary collecting system, suprapubic cystostomy, small contracted bladder, and neurogenic bladder. These findings are all chronic in nature as reviewed by cystograms in 2016. There appears to be very little change in my opinion. Current x-rays were reviewed as well as the previous x-rays evaluating his situation. Suprapubic cystostomy tube is located with the tip in the bladder, but the balloon is basically inflated exterior to the small contracted bladder between the bladder and the body wall. This suprapubic cystostomy tube type of drainage by and large takes care of his urinary drainage as well as can be under the circumstances. Patient refuses any further evaluation and therapy of his urinary tract. Current problems is a painful scrotal abscess that was drained by Dr. Olson. See his note for details. Patient does state he is 100% better. IMPRESSION As above. RECOMMENDATIONS Continue current urological care with suprapubic cystostomy tube changes every month or more as needed. Nephrostomy tubes have been discussed with the patient several times in the past, and it is my clinical impression that he would still drain urine preferentially out the refluxing dilated ureters out the suprapubic cystostomy tube and would gain very little, if any, from chronic indwelling percutaneous nephrostomy tubes. Thank you for letting me share in the care of your patient. SUSY
[2018-09-11] MEDS: APAP/HYDROCODONE 325/5 TAB PO PRN (23:12)
[2018-09-12] MEDS: NS 0.9% IVPB SCH ×2 (01:31→08:36)
[2018-09-12] MEDS: IMIPENEM IVPB SCH ×2 (01:31→08:36)
[2018-09-12] MEDS: CILASTA IVPB SCH ×2 (01:31→08:36)
[2018-09-12] MEDS: NS(*) 0.9% 1000 ML BAG 1,000 ML IV PRN (02:41)
[2018-09-12 03:31] VITALS: BP 123/86
[2018-09-12] MEDS ORDERED: NS(*) 0.9% 1000 ML BAG 1,000 ML IV PRN (05:55)
[2018-09-12 06:26] LABS: PLATELET COUNT, AUTOMATED 359 K/uL (150-450)
[2018-09-12 06:33] LABS: INR 1.18
--- NOTE | 2018-09-12 06:50 | Hospitalist Progress Note ---
Subjective Progress Notes Subjective Jared denies any complaints this AM. Physical Exam Vital Signs Date Time Temp Pulse Resp B/P (MAP) Pulse Ox O2 Delivery O2 Flow Rate FiO2 09/12/18 03:31 98.1 72 18 123/86 (98) 94 Room Air 09/10/18 13:05 2.0 Intake and Output 09/12/18 07:02 Intake Total 3230 ml Output Total 2580 ml Balance 650 ml Intake Oral 580 ml IV Total 2650 ml Output Urine Total 2580 ml General Appearance: Alert, Awake, Other (responds slowly) Neuro: Other (contractures/near quadriplegia) Cardiovascular: Regular Rate and Rhythm Respiratory: Clear to Auscultation : Other (wound dressed) Extremities: Other (contractures all four extremities) Result Diagram: 09/11/1861909/12/18606 Assessment and Plan Problems: (1) Abscess, scrotum Status: Acute Assessment & Plan: He had debridement with Dr. Olson. Continue empiric IV vancomycin and Primaxin. Cultures pending. (2) ARF (acute renal failure) Status: Acute Assessment & Plan: Improved. Creatinine 1.7 yesterday. Baseline creatinine appears to be near 1.2-1.5, elevated at 2.5 on admission. (3) Multiple sclerosis Status: Chronic Assessment & Plan: We have decreased baclofen in setting of ADAN. It is possible this was contributing to decreased interaction with caregivers. (4) Sepsis Status: Resolved Assessment & Plan: Secondary to scrotal abscess, as above. (5) Altered mental status Status: Resolved Assessment & Plan: Likely due to infection, baclofen could be contributing. (6) Leukocytosis Status: Acute Assessment & Plan: Improved/resolved. Secondary to infection, monitor. Central Venous Access Medical Necessity for Access: Hemodynamic Monitoring, IV Access, Medication Administration Exam Sepsis Risk: No Definite Risk Problem Qualifiers (1) Sepsis: Sepsis type: sepsis due to unspecified organism Qualified Codes: A41.9 - Sepsis, unspecified organism (2) Altered mental status: Altered mental status type: delirium Qualified Codes: R41.0 - Disorientation, unspecified NAKIA BRUNER MD Sep 12, 2018 06:50
[2018-09-12 07:14] VITALS: BP 135/78
--- NOTE | 2018-09-12 07:22 | General Surgery Progress Note ---
Subjective Progress Notes Subjective afebrile, vss, feels better, UO OK, eating better wound healing quite well. No cellulitis. Minimal drainage labs noted. Improved azotemia consult--continue SP--no nephrostomy tubes Plan-Continue antibiotics, wound care, taper IV Physical Exam Vital Signs Date Time Temp Pulse Resp B/P (MAP) Pulse Ox O2 Delivery O2 Flow Rate FiO2 09/12/18 07:14 98.2 65 14 135/78 (97) 95 Room Air 09/10/18 13:05 2.0 Intake and Output 09/12/18 07:02 Intake Total 3230 ml Output Total 2580 ml Balance 650 ml Intake Oral 580 ml IV Total 2650 ml Output Urine Total 2580 ml Result Diagram: 09/12/1860609/12/18606 Assessment and Plan Problems: (1) Sepsis Status: Resolved Assessment & Plan: 09/10/18: Likely related to scrotal abscess. We'll proceed with drainage of the abscess and place on appropriate antibiotics including Zosyn and vancomycin. Will ask the hospitalist to consult and provide input on managing patient comorbidities and antibiotic coverage. 09/11/18: Improving. Pt now communicative and back to his baseline. Continue wound care. Will send back to [facility] tomorrow if he continues to be stable. (2) Abscess of scrotal wall Status: Resolved Assessment & Plan: 09/10/18:2 OR today for incision and drainage of scrotal abscess. (3) Altered mental status Status: Resolved Assessment & Plan: 09/10/18: Likely related to the infection. We will treat with antibiotics and abscess drainage and follow his mental status. (4) Hydroureter Status: Chronic Assessment & Plan: 09/10/18: Will ask urology to evaluate this and determine if anything needs to be done such as a nephrostomy tube 09/11/18: Dr. Glynn, manager operations Urologist, contacted via telephone, he'll see patient today and provide further w/u and recommendations. Central Venous Access Medical Necessity for Access: Hemodynamic Monitoring, IV Access, Medication Administration Exam Sepsis Risk: No Definite Risk Problem Qualifiers (1) Sepsis: Sepsis type: sepsis due to unspecified organism Qualified Codes: A41.9 - Sepsis, unspecified organism (2) Altered mental status: Altered mental status type: delirium Qualified Codes: R41.0 - Disorientation, unspecified HILL,EILEEN MD Sep 12, 2018 07:22
[2018-09-12] MEDS: DOCUSATE SODIUM 100 MG CAP PO SCH (08:27)
[2018-09-12] MEDS: BACLOFEN 10 MG TAB PO SCH ×4 (08:27→20:33)
[2018-09-12] MEDS: ENOXAPARIN 30 MG/0.3 ML SYR SC SCH (08:27)
[2018-09-12] MEDS: PANTOPRAZOLE SOD 40 MG TABEC PO SCH (08:28)
[2018-09-12] MEDS: fentaNYL 12 MCG TDSY TD SCH (08:28)
[2018-09-12] MEDS: MULTIVITAMINS TAB PO SCH (08:28)
[2018-09-12] MEDS: CHOLECALCIFEROL 1000 UNIT TAB PO SCH (08:28)
[2018-09-12] MEDS: OXYBUTYNIN CHL XL 5 MG TABCR PO SCH (08:28)
[2018-09-12] MEDS: LACTOBACILLUS ACIDOPHILUS TAB PO SCH (08:28)
[2018-09-12] MEDS: PATCH REMOVAL 1 EA TP SCH (08:36)
[2018-09-12] MEDS: POTASSIUM CHL 10 MEQ TABCR PO SCH (08:36)
[2018-09-12] MEDS: DULoxetine HCL 20 MG CAPCR PO SCH (08:36)
[2018-09-12] MEDS: CRANBERRY PO SCH (08:37)
[2018-09-12] MEDS ORDERED: VANCOMYCIN(*) 1 GM VIAL 1 GM, VANCOMYCIN (*) 0.5 GM VIAL 0.25 GM in NS(*) 0.9% 250 ML B... IVPB SCH (09:25)
--- NOTE | 2018-09-12 10:56 | Pharmacy Note ---
Vancomycin Management Note Vanco Dosing Note Vancomycin trough was 20.33 today and Scr is now 1.4 with CrCl of 54 so dose was kept the same at 1.25 g IV q24h. Next trough to be drawn tomorrow 08/14/18 at 0800. CAROL THOMPSON Sep 12, 2018 10:56
[2018-09-12 10:57] VITALS: BP 131/89
--- NOTE | 2018-09-12 10:58 | Pharmacy Note ---
Pharmacy Note Date Provider Notified: Sep 12, 2018 Time Provider Notified: 10:30 Provider Notified: Dr. Wood Note: Scr 1.4 and CrCl 54 so recommended adjust Primaxin dose to 300 mg IV q6h. Recommendation approved. CAROL THOMPSON Sep 12, 2018 10:58
[2018-09-12] MEDS: IMIPENEM/CILASTA(*) 500MG VIAL 300 MG in NS(*) 0.9% 100 ML BAG 100 ML IVPB SCH ×2 (14:36→20:31)
[2018-09-12 14:37] VITALS: BP 149/83
--- NOTE | 2018-09-12 15:36 | General Surgery Progress Note ---
Subjective Progress Notes Subjective Stable Continue Physical Exam Vital Signs Date Time Temp Pulse Resp B/P (MAP) Pulse Ox O2 Delivery O2 Flow Rate FiO2 09/12/18 14:37 98.4 80 14 149/83 (105) 98 Room Air 09/10/18 13:05 2.0 Intake and Output 09/12/18 07:02 Intake Total 3230 ml Output Total 2580 ml Balance 650 ml Intake Oral 580 ml IV Total 2650 ml Output Urine Total 2580 ml Result Diagram: 09/12/18 0607 09/12/18 0607 Assessment and Plan Problems: (1) Sepsis Status: Resolved Assessment & Plan: 09/10/18: Likely related to scrotal abscess. We'll proceed with drainage of the abscess and place on appropriate antibiotics including Zosyn and vancomycin. Will ask the hospitalist to consult and provide input on managing patient comorbidities and antibiotic coverage. 09/11/18: Improving. Pt now communicative and back to his baseline. Continue wound care. Will send back to [facility] tomorrow if he continues to be stable. (2) Abscess of scrotal wall Status: Resolved Assessment & Plan: 09/10/18:2 OR today for incision and drainage of scrotal abscess. (3) Altered mental status Status: Resolved Assessment & Plan: 09/10/18: Likely related to the infection. We will treat with antibiotics and abscess drainage and follow his mental status. (4) Hydroureter Status: Chronic Assessment & Plan: 09/10/18: Will ask urology to evaluate this and determine if anything needs to be done such as a nephrostomy tube 09/11/18: Dr. Glynn, customer sales consultant Urologist, contacted via telephone, he'll see patient today and provide further w/u and recommendations. Central Venous Access Medical Necessity for Access: Hemodynamic Monitoring, IV Access, Medication Administration Exam Sepsis Risk: No Definite Risk Problem Qualifiers (1) Sepsis: Sepsis type: sepsis due to unspecified organism Qualified Codes: A41.9 - Sepsis, unspecified organism (2) Altered mental status: Altered mental status type: delirium Qualified Codes: R41.0 - Disorientation, unspecified EILEEN TIMMONS MD Sep 12, 2018 15:36
[2018-09-12 19:17] VITALS: BP 156/102
[2018-09-12] MEDS: MELATONIN 3 MG TAB PO SCH (20:34)
[2018-09-12 22:55] VITALS: BP 144/86
[2018-09-12] MEDS: APAP/HYDROCODONE 325/5 TAB PO PRN (22:57)
[2018-09-13] VITALS (13 sets, daily range): BP systolic 97–157; BP diastolic 51–96
[2018-09-13] MEDS: IMIPENEM/CILASTA(*) 500MG VIAL 300 MG in NS(*) 0.9% 100 ML BAG 100 ML IVPB SCH ×2 (02:05→07:53)
[2018-09-13] MEDS: MORPHINE 2 MG/ML SYR IVP PRN (04:16)
[2018-09-13] MEDS ORDERED: DILTIAZEM HCL 125 MG/25 ML SDV 125 MG in NS(*) 0.9% 100 ML BAG 100 ML IV ONE (07:30)
[2018-09-13] MEDS ORDERED: NS(*) 0.9% 500 ML BAG 500 ML ONE (07:33)
--- NOTE | 2018-09-13 07:51 | EKG ---
FACILITY: [facility] PATIENT NAME: LIZZY MCKEON : [id number] MR: [id number] V: [id number] EXAM DATE: ORDERING PHYSICIAN: IRSSA AGEE TECHNOLOGIST: TAINA Test Reason : POSS A-FIB Blood Pressure : / mmHG Vent. Rate : 184 BPM Atrial Rate : 182 BPM P-R Int : 000 ms QRS Dur : 080 ms QT Int : 244 ms P-R-T Axes : 000 -28 087 degrees QTc Int : 427 ms Atrial fibrillation with rapid ventricular response Nonspecific ST and T wave abnormality Abnormal ECG When compared with ECG of 02-APR-2017 19:28, Atrial fibrillation has replaced Sinus rhythm RSR' pattern in V1 is no longer present Criteria for Inferior infarct are no longer present Confirmed by PATRIZIA RECINOS ([id number]) on 09/13/2018 1:29:36 PM Referred By: CYNDIE Confirmed By:PATRIZIA RECINOS
--- NOTE | 2018-09-13 08:33 | General Surgery Progress Note ---
Subjective Progress Notes Subjective went into rapid afib. Pressure a tad low. On drip Physical Exam Vital Signs Date Time Temp Pulse Resp B/P (MAP) Pulse Ox O2 Delivery O2 Flow Rate FiO2 09/13/18 08:11 162 105/80 (88) 09/13/18 07:06 98.1 24 93 Room Air 09/10/18 13:05 2.0 Intake and Output 09/13/18 07:02 Intake Total 2542.5 ml Output Total 3825 ml Balance -1282.5 ml Intake Oral 1080 ml IV Total 1462.5 ml Output Urine Total 3825 ml Result Diagram: 09/12/1807 09/12/18 0607 Assessment and Plan Problems: (1) Sepsis Status: Resolved Assessment & Plan: 09/10/18: Likely related to scrotal abscess. We'll proceed with drainage of the abscess and place on appropriate antibiotics including Zosyn and vancomycin. Will ask the hospitalist to consult and provide input on managing patient comorbidities and antibiotic coverage. 09/11/18: Improving. Pt now communicative and back to his baseline. Continue wound care. Will send back to [facility] tomorrow if he continues to be stable. (2) Abscess of scrotal wall Status: Resolved Assessment & Plan: 09/10/18:2 OR today for incision and drainage of scrotal abscess. (3) Altered mental status Status: Resolved Assessment & Plan: 09/10/18: Likely related to the infection. We will treat with antibiotics and abscess drainage and follow his mental status. (4) Hydroureter Status: Chronic Assessment & Plan: 09/10/18: Will ask urology to evaluate this and determine if anything needs to be done such as a nephrostomy tube 09/11/18: Dr. Glynn, public relations supervisor Urologist, contacted via telephone, he'll see patient today and provide further w/u and recommendations. Central Venous Access Medical Necessity for Access: Hemodynamic Monitoring, IV Access, Medication Administration Exam Sepsis Risk: No Definite Risk Problem Qualifiers (1) Sepsis: Sepsis type: sepsis due to unspecified organism Qualified Codes: A41.9 - Sepsis, unspecified organism (2) Altered mental status: Altered mental status type: delirium Qualified Codes: R41.0 - Disorientation, unspecified EILEEN TIMMONS MD Sep 13, 2018 08:33
[2018-09-13] MEDS: DULoxetine HCL 20 MG CAPCR PO SCH (08:42)
[2018-09-13] MEDS: LACTOBACILLUS ACIDOPHILUS TAB PO SCH (08:43)
[2018-09-13] MEDS: CHOLECALCIFEROL 1000 UNIT TAB PO SCH (08:44)
[2018-09-13] MEDS: DOCUSATE SODIUM 100 MG CAP PO SCH (08:44)
[2018-09-13] MEDS: MULTIVITAMINS TAB PO SCH (08:44)
[2018-09-13] MEDS: CRANBERRY PO SCH (08:44)
[2018-09-13] MEDS: OXYBUTYNIN CHL XL 5 MG TABCR PO SCH (08:44)
[2018-09-13] MEDS: PANTOPRAZOLE SOD 40 MG TABEC PO SCH (08:44)
[2018-09-13] MEDS: ENOXAPARIN 30 MG/0.3 ML SYR SC SCH (08:51)
[2018-09-13] MEDS: BACLOFEN 10 MG TAB PO SCH ×4 (08:52→21:11)
[2018-09-13] MEDS: POTASSIUM CHL 10 MEQ TABCR PO SCH (08:53)
[2018-09-13] MEDS ORDERED: VANCOMYCIN(*) 1 GM VIAL 1 GM in NS(*) 0.9% 250 ML BAG 250 ML IVPB SCH (09:00)
[2018-09-13] MEDS ORDERED: DIGOXIN 0.5 MG/2 ML AMP IVP ONE (09:15)
--- NOTE | 2018-09-13 09:15 | Hospitalist Progress Note ---
Physical Exam Vital Signs Date Time Temp Pulse Resp B/P (MAP) Pulse Ox O2 Delivery O2 Flow Rate FiO2 09/13/18 08:45 161 102/51 (68) 96 Room Air 09/13/18 07:06 98.1 24 09/10/18 13:05 2.0 Intake and Output 09/13/18 07:02 Intake Total 2542.5 ml Output Total 3825 ml Balance -1282.5 ml Intake Oral 1080 ml IV Total 1462.5 ml Output Urine Total 3825 ml Result Diagram: 09/12/1860609/12/18606 Assessment and Plan Problems: (1) Abscess, scrotum Status: Acute Assessment & Plan: He had debridement with Dr. Olson. Continue empiric IV vancomycin and Primaxin. Cultures show gram negative rods, three different bacteria. Await ID and susceptibilities today. (2) Atrial fibrillation with RVR Status: Acute Assessment & Plan: EKG shows atrial fibrillation with RVR. No ischemic changes. The patient denies chest pain or shortness of breath with rates in the 180s. Will order a STAT troponin and BMP. Diltiazem gtt started but rate not controll ed and BP borderline. Will give a one time dose of digoxin 0.25mg and monitor. (3) ARF (acute renal failure) Status: Acute Assessment & Plan: Improved. Creatinine 1.4 yesterday. Baseline creatinine appears to be near 1.2-1.5, elevated at 2.5 on admission. (4) Multiple sclerosis Status: Chronic Assessment & Plan: We have decreased baclofen in setting of ADAN. It is possible this was contributing to decreased interaction with caregivers. (5) Sepsis Status: Resolved Assessment & Plan: Secondary to scrotal abscess, as above. (6) Altered mental status Status: Resolved Assessment & Plan: Likely due to infection, baclofen could be contributing. (7) Leukocytosis Status: Acute Assessment & Plan: Improved/resolved. Secondary to infection, monitor. Central Venous Access Medical Necessity for Access: Hemodynamic Monitoring, IV Access, Medication Administration Time Spent on Plan of Care: < 30 min Exam Sepsis Risk: No Definite Risk Problem Qualifiers (1) Sepsis: Sepsis type: sepsis due to unspecified organism Qualified Codes: A41.9 - Sepsis, unspecified organism (2) Altered mental status: Altered mental status type: delirium Qualified Codes: R41.0 - Disorientation, unspecified BRUNER,PATRIZIA A MD Sep 13, 2018 09:15
[2018-09-13] MEDS: NS(*) 0.9% 1000 ML BAG 1,000 ML IV PRN (11:26)
[2018-09-13] MEDS ORDERED: MAGNESIUM SULF 4 GM/50 ML BAG 50 ML IVPB ONE (13:30)
[2018-09-13] MEDS: PIPERACILLIN/TAZO*3.375GM VIAL 3.375 GM in NS(*) 0.9% 100 ML MINI-BAG 100 ML IVPB SCH ×2 (14:52→21:10)
--- NOTE | 2018-09-13 16:18 | General Surgery Progress Note ---
Subjective Progress Notes Subjective afib still but controlled rate Physical Exam Vital Signs Date Time Temp Pulse Resp B/P (MAP) Pulse Ox O2 Delivery O2 Flow Rate FiO2 09/13/18 15:56 88 09/13/18 11:23 98.4 20 09/13/18 11:00 120/71 (87) 96 Room Air 09/10/18 13:05 2.0 Intake and Output 09/13/18 07:02 Intake Total 2542.5 ml Output Total 3825 ml Balance -1282.5 ml Intake Oral 1080 ml IV Total 1462.5 ml Output Urine Total 3825 ml Result Diagram: 09/12/18 0607 09/13/18 0901 Assessment and Plan Problems: (1) Sepsis Status: Resolved Assessment & Plan: 09/10/18: Likely related to scrotal abscess. We'll proceed with drainage of the abscess and place on appropriate antibiotics including Zosyn and vancomycin. Will ask the hospitalist to consult and provide input on managing patient comorbidities and antibiotic coverage. 09/11/18: Improving. Pt now communicative and back to his baseline. Continue wound care. Will send back to [facility] tomorrow if he continues to be stable. (2) Abscess of scrotal wall Status: Resolved Assessment & Plan: 09/10/18:2 OR today for incision and drainage of scrotal abscess. (3) Altered mental status Status: Resolved Assessment & Plan: 09/10/18: Likely related to the infection. We will treat with antibiotics and abscess drainage and follow his mental status. (4) Hydroureter Status: Chronic Assessment & Plan: 09/10/18: Will ask urology to evaluate this and determine if anything needs to be done such as a nephrostomy tube 09/11/18: Dr. Glynn, ordnance truck installation supervisor Urologist, contacted via telephone, he'll see patient today and provide further w/u and recommendations. Central Venous Access Medical Necessity for Access: Hemodynamic Monitoring, IV Access, Medication Administration Exam Sepsis Risk: No Definite Risk Problem Qualifiers (1) Sepsis: Sepsis type: sepsis due to unspecified organism Qualified Codes: A41.9 - Sepsis, unspecified organism (2) Altered mental status: Altered mental status type: delirium Qualified Codes: R41.0 - Disorientation, unspecified EILEEN TIMMONS MD Sep 13, 2018 16:18
[2018-09-13] MEDS: MELATONIN 3 MG TAB PO SCH (21:11)
[2018-09-13] MEDS: APAP/HYDROCODONE 325/5 TAB PO PRN (21:12)
[2018-09-14 02:20] VITALS: BP 155/86
[2018-09-14] MEDS: PIPERACILLIN/TAZO*3.375GM VIAL 3.375 GM in NS(*) 0.9% 100 ML MINI-BAG 100 ML IVPB SCH ×4 (03:09→20:42)
[2018-09-14 06:05] LABS: PLATELET COUNT, AUTOMATED 345 K/uL (150-450)
[2018-09-14 07:19] VITALS: BP 153/92
--- NOTE | 2018-09-14 08:41 | General Surgery Progress Note ---
Subjective Progress Notes Subjective No complaints. Physical Exam Vital Signs Date Time Temp Pulse Resp B/P (MAP) Pulse Ox O2 Delivery O2 Flow Rate FiO2 09/14/18 07:19 98.4 92 16 153/92 (112) 94 Room Air 09/10/18 13:05 2.0 Intake and Output 09/14/18 07:02 Intake Total 2053.5 ml Output Total 4100 ml Balance -2046.5 ml Intake Oral 400 ml IV Total 1653.5 ml Output Urine Total 4100 ml General Appearance: Alert, Awake, No Acute Distress, Afebrile : Other (Scrotum draining, getting softer, no erythema, mild TTP) Extremities: Warm, Perfused Result Diagram: 09/14/18 0540 09/14/18 0540 Assessment and Plan Problems: (1) Sepsis Status: Resolved Assessment & Plan: 09/10/18: Likely related to scrotal abscess. We'll proceed with drainage of the abscess and place on appropriate antibiotics including Z osyn and vancomycin. Will ask the hospitalist to consult and provide input on managing patient comorbidities and antibiotic coverage. 09/11/18: Improving. Pt now communicative and back to his baseline. Continue wound care. Will send back to [facility] tomorrow if he continues to be stable. 09/14/18: Went into a-fib RVR over the weekend. Hospitalists are working on rate control. Abx changed to cover organisms grown from abscess fluid. Continue wound care. Continue in-patient care until A-fib controlled and WBC remains normal/afebrile. (2) Abscess of scrotal wall Status: Resolved Assessment & Plan: 09/10/18:2 OR today for incision and drainage of scrotal abscess. (3) Altered mental status Status: Resolved Assessment & Plan: 09/10/18: Likely related to the infection. We will treat with antibiotics and abscess drainage and follow his mental status. (4) Hydroureter Status: Chronic Assessment & Plan: 09/10/18: Will ask urology to evaluate this and determine if anything needs to be done such as a nephrostomy tube 09/11/18: Dr. Glynn, electronic train control technician Urologist, contacted via telephone, he'll see patie nt today and provide further w/u and recommendations. (5) UNSPECIFIED ATRIAL FIBRILLATION Status: Acute Assessment & Plan: Managed by hospitalists Central Venous Access Medical Necessity for Access: Hemodynamic Monitoring, IV Access, Medication Administration Condition Stable. Time Spent: < 30 min Exam Sepsis Risk: No Definite Risk Problem Qualifiers (1) Sepsis: Sepsis type: sepsis due to unspecified organism Qualified Codes: A41.9 - Sepsis, unspecified organism (2) Altered mental status: Altered mental status type: delirium Qualified Codes: R41.0 - Disorientation, unspecified CRISTA GARCIA MD Sep 14, 2018 08:41
[2018-09-14] MEDS: CRANBERRY PO SCH (09:00)
[2018-09-14] MEDS: OXYBUTYNIN CHL XL 5 MG TABCR PO SCH (09:23)
[2018-09-14] MEDS: BACLOFEN 10 MG TAB PO SCH ×4 (09:23→20:41)
[2018-09-14] MEDS: PANTOPRAZOLE SOD 40 MG TABEC PO SCH (09:23)
[2018-09-14] MEDS: DOCUSATE SODIUM 100 MG CAP PO SCH (09:23)
[2018-09-14] MEDS: CHOLECALCIFEROL 1000 UNIT TAB PO SCH (09:23)
[2018-09-14] MEDS: LACTOBACILLUS ACIDOPHILUS TAB PO SCH (09:24)
[2018-09-14] MEDS: ENOXAPARIN 30 MG/0.3 ML SYR SC SCH (09:24)
[2018-09-14] MEDS: MULTIVITAMINS TAB PO SCH (09:24)
[2018-09-14] MEDS: DULoxetine HCL 20 MG CAPCR PO SCH (09:29)
[2018-09-14] MEDS: POTASSIUM CHL 10 MEQ TABCR PO SCH (09:29)
--- NOTE | 2018-09-14 11:28 | Hospitalist Progress Note ---
Subjective Progress Notes Subjective He was admitted for abscess. He denies any complaints this morning. He had no acute events overnight. Patient Complains of: Cardiovascular: No: Chest Pain Respiratory: No: Shortness of Breath Physical Exam Vital Signs Date Time Temp Pulse Resp B/P (MAP) Pulse Ox O2 Delivery O2 Flow Rate FiO2 09/14/18 10:15 94 Room Air 09/14/18 07:19 98.4 92 16 153/92 (112) 09/10/18 13:05 2.0 Intake and Output 09/14/18 01:02 Intake Total 2053.5 ml Output Total 4300 ml Balance -2246.5 ml Intake Oral 400 ml IV Total 1653.5 ml Output Urine Total 4300 ml General Appearance: Alert, Awake, No Acute Distress, Afebrile Cardiovascular: Regular Rate and Rhythm Respiratory: No Respiratory Distress, Clear to Auscultation Psych: Appropriate Mood & Affect Result Diagram: 09/14/18 0540 09/14/18 0540 Assessment and Plan Problems: (1) Abscess, scrotum Status: Acute Assessment & Plan: He had debridement with Dr. Olson. He was initially placed on empiric IV vancomycin and Primaxin. Cultures grew E.Coli, Pseudomonas Aeruginosa, Aerococcus, Citrobacter. He was switched to Zosyn which was susceptible to all organisms. Will likely require two weeks antibiotic treatment. (2) Atrial fibrillation with RVR Status: Acute Assessment & Plan: EKG shows atrial fibrillation with RVR. No ischemic changes. The patient denies chest pain or shortness of breath with rates in the 180s. Will order a STAT troponin and BMP. Diltiazem gtt started but rate not controlled and BP borderline. Will give a one time dose of digoxin 0.25mg and monitor. (3) ARF (acute renal failure) Status: Acute Assessment & Plan: Improved. Creatinine 1.2 yesterday. Baseline creatinine appears to be near 1.2-1.5, elevated at 2.5 on admission. (4) Multiple sclerosis Status: Chronic Assessment & Plan: We have decreased baclofen in setting of ADAN. It is possible this was contributing to decreased interaction with caregivers. (5) Sepsis Status: Resolved Assessment & Plan: Secondary to scrotal abscess, as above. (6) Altered mental status Status: Resolved Assessment & Plan: Likely due to infection, baclofen could be contributing. (7) Leukocytosis Status: Acute Assessment & Plan: Improved/resolved. Secondary to infection, monitor. Central Venous Access Medical Necessity for Access: Hemodynamic Monitoring, IV Access, Medication Administration Exam Sepsis Risk: No Definite Risk Problem Qualifiers (1) Sepsis: Sepsis type: sepsis due to unspecified organism Qualified Codes: A41.9 - Sepsis, unspecified organism (2) Altered mental status: Altered mental status type: delirium Qualified Codes: R41.0 - Disorientation, unspecified KIRILL AKERSP Sep 14, 2018 11:28
--- NOTE | 2018-09-14 12:00 | Medical Nutrition Therapy ---
Nutrition Anthropometrics Height (Inches): 73.00 Height (Calculated Centimeters: 185.899531 Weight (Pounds): 160 Weight (Calculated Kilograms): 72.745 BMI: 21.1 Manish Nutrition Score: Probably Inadequate Manish Nutrition Risk Score: 10 Dietary Referral Nutrition Risk Factors: Unplanned Loss >10lbs Nutrition Risk Comment: Physical Findings Physical Appearance: WNR Skin Appearance Skin Appearance: Edema Edema Location Modifier: Left Edema Location: Upper Extremity Type of Edema: Degree of Edema: 1+ Gastrointestinal Symptoms GI Symtoms: Appetite Changes Tube Present: Bowel Sounds: Recent Bowel Pattern: Incontinent Stool Characteristics: Nutrition/Food History Poor (Only 3 meals in last 4 days) Nutritional Diagnosis Nutritional Risk Acuity 1: Acute/ES Renal Nutritional Risk Acuity 2: Abcess/Non-Healing Wound Nutritional Risk Acuity 3: Fair Appetite Past Medical History: advanced MS, recurrent UTI, stroke, gastric outlet obstruction, gastroparesis Nutritional Acuity: 1-High Nutrition Diagnosis: Involuntary Wt. Loss, Inablility to Feed Self (r/t MS) Nutrition Etiology: Physiological Causes Nutrition Problem/Etiology/Sym: [facility] staff reporting 10# unplanned wt loss, C staff reporting usual wt 181# Energy Requirement: 2400 (MSJ X 1.3 SF) Protein Requirement: 94 (1.3gm/kg) Fluid Requirement: 2160 (30ml/kg) Diet Type: Diet as Tolerated APOLINAR/REG Nutrition Intervention: Cont diet as ordered, Encourage intake, Between meal supplement Additional Diet Restrictions: PROVIDE NUTRTIONAL SUPPLMENT WITH EACH MEAL Diet Comment To [facility]: PROVIDE ORAL NUTRITION SUPPLEMENT AT EVERY MEAL (TRY MIGHTY SHAKE, MAGIC CUP, CHOCOLATE MILK WITH 2 SCOOPS BENEPROTEIN) Nutrition Monitoring & Eval Nutrition Monitoring: Intake, New Wt, Tolerance to Oral Nutrition Supplement RD Patient Assessment Time: [address] Assessment Type: RD Re-Assessment Patient Nutrition Acuity: 1-High Follow Up Date: Sep 17, 2018 Nutritional Comment: 09/11 Pt admitted with scrotal absess and ARF. ARF improving but cont elevated BUN at 45, creatinine at 1.7, GFR at 40.5. Pt has decreased protein, K+, Phos, Na and fluid needs r/t ARF but increased protein needs r/t absess. Pt on regular diet and ate 50% of first meal in facility. Will provide nutr supplment to ensure pt consumes adequate protein. Pt has demonstrated wt loss per [facility] staff reported usual wt of 181#. BMI is in low end of desired rwt range. Pt requires help with feeding which may be contributing to wt loss. Will cont to monitor and encourage intake. BK 09/14/18:Reviewed current and past medical hx. No new wts. Pt has poor intakes, has only consumed 3 meals since admit on 09/10/18. Has only consumed one Boost. Continue to offer variety of oral nutrition supplements, obtain a new wt. Continue to monitor intake and weight.TASHI RODRIGUEZ Sep 14, 2018 11:52
[2018-09-14 15:23] VITALS: BP 136/89
[2018-09-14] MEDS: NS(*) 0.9% 1000 ML BAG 1,000 ML IV PRN (19:28)
[2018-09-14 19:40] VITALS: BP 120/100
[2018-09-14] MEDS: MELATONIN 3 MG TAB PO SCH (20:40)
[2018-09-14] MEDS: APAP/HYDROCODONE 325/5 TAB PO PRN (20:41)
[2018-09-14 22:07] VITALS: BP 122/88
--- NOTE | 2018-09-14 22:15 | NUR ---
REPORT GIVEN TO BEVERLEY SERRANO
[2018-09-14] MEDS: MORPHINE 2 MG/ML SYR IVP PRN (23:52)
[2018-09-15] MEDS: PIPERACILLIN/TAZO*3.375GM VIAL 3.375 GM in NS(*) 0.9% 100 ML MINI-BAG 100 ML IVPB SCH ×3 (03:15→14:37)
[2018-09-15 03:25] VITALS: BP 131/74
[2018-09-15 05:39] LABS: PLATELET COUNT, AUTOMATED 326 K/uL (150-450)
--- NOTE | 2018-09-15 07:12 | Short(Outpt) Discharge Summary ---
Discharge Summary Reason for Hosp/Final Diag: (1) Sepsis Status: Resolved Hospital Course & Plan: 09/10/18: Likely related to scrotal abscess. We'll proceed with drainage of the abscess and place on appropriate antibiotics including Zosyn and vancomycin. Will ask the hospitalist to consult and provide input on managing patient comorbidities and antibiotic coverage. 09/11/18: Improving. Pt now communicative and back to his baseline. Continue wound care. Will send back to [facility] tomorrow if he continues to be stable. 09/14/18: Went into a-fib RVR over the weekend. Hospitalists are working on rate control. Abx changed to cover organisms grown from abscess fluid. Continue wound care. Continue in-patient care until A-fib controlled and WBC remains normal/afebrile. 09/15/18: Doing well. Scrotal wound with decreasing drainage and induration resolving. No other issues currently. Will d/c to [facility] today. (2) Abscess of scrotal wall Status: Resolved Hospital Course & Plan: 09/10/18:2 OR today for incision and drainage of scrotal abscess. (3) Altered mental status Status: Resolved Hospital Course & Plan: 09/10/18: Likely related to the infection. We will treat with antibiotics and abscess drainage and follow his mental status. (4) Hydroureter Status: Chronic Hospital Course & Plan: 09/10/18: Will ask urology to evaluate this and determine if anything needs to be done such as a nephrostomy tube 09/11/18: Dr. Glynn, highway construction inspector Urologist, contacted via telephone, he'll see patient today and provide further w/u and recommendations. (5) UNSPECIFIED ATRIAL FIBRILLATION Status: Chronic Hospital Course & Plan: Managed by hospitalists Departure Discharge to: [facility] Discharge Instructions Home Meds Active Scripts Pantoprazole Sodium (PANTOPRAZOLE SODIUM) 40 Mg Tablet.dr, 40 MG PO QDAY for 120 Days, Clear with patient's PCP or Dr. Garcia before it is weaned and then stopped Prov:JASKARAN CULLEN MD 12/23/16 Potassium Chloride (KLOR-CON 10) 10 Meq Tablet.er, 10 MEQ PO DAILY, #0 Prov:JASKARAN CULLEN MD 03/06/16 Magnesium Hydroxide (MILK OF MAGNESIA) 30 Ml Susp, 30 ML PO BID PRN for CONSTIPATION, #1 BOTTLE Prov:PATRIZIA BRUNER MD 08/24/14 Reported Medications Clonazepam (CLONAZEPAM) 0.25 Mg Tab.rapdis, 0.5 MG PO QDAY, #14 TAB 05/25/17 Promethazine Hcl (PROMETHEGAN) 25 Mg Supp.rect, 25 MG RC Q8H PRN for NAUSEA/VOMITING, SUPP.RECT 05/25/17 Omeprazole (OMEPRAZOLE) 20 Mg Capsule.dr, 1 CAP PO QDAY, CAP 05/25/17 Docusate Sodium (COLACE) 100 Mg Capsule, 100 MG PO QDAY, CAPSULE 05/25/17 Lactose-Free Food (ENSURE PLUS) 237 Ml Liquid, 237 ML PO BID 04/03/17 Cholecalciferol (Vitamin D3) (VITAMIN D3) 1,000 Unit Tablet, 1000 UNIT PO DAILY, TAB 04/03/17 Lactobacillus Combo No.13 (Probiotic Pearls Complete) 1 Each Capsule.dr, 2 CAP PO DAILY 04/03/17 Duloxetine Hcl (CYMBALTA) 30 Mg Capsule.dr, 30 MG PO QDAY, #30 CAP 04/03/17 Cranberry Fruit Concentrate (CRANBERRY) 450 Mg Tablet, 450 MG PO DAILY 04/03/17 Fentanyl (Fentanyl) 1 Each Patch.td72, 12 TD q72hr 04/02/17 Melatonin (MELATONIN) 3 Mg Tablet, 3 MG PO QHS 03/11/17 Ondansetron Hcl (ZOFRAN) 4 Mg Tablet, 8 MG PO Q4H PRN for NAUSEA, TAB 08/16/16 Hydrocodone Bit/Acetaminophen (NORCO 5-325 TABLET) 1 Each Tablet, 1 EACH PO BID PRN for PAIN, TAB 08/16/16 Multivitamin (MULTI VITAMIN DAILY) 1 Each Tablet, 1 EACH PO QDAY 02/29/16 Oxybutynin Chloride (OXYBUTYNIN CHLORIDE ER) 10 Mg Tab.er.24, 10 MG PO QDAY, TAB.SR 02/29/16 Baclofen (BACLOFEN) 20 Mg Tablet, 20 MG PO QID, #15 TAB 08/15/14 Acetaminophen (ACETAMINOPHEN) 500 Mg Tablet, 500 MG PO TID PRN for PRN, TAB 08/15/14 Bisacodyl (BISACODYL) 10 Mg Supp.rect, 10 MG RC BID PRN for CONSTIPATION, SUPP.RECT 05/02/13 Diet: Regular Activity: As Tolerated Special Instructions: Inspect Jared's scrotum and change the dressing daily. We have simply been covering with an ABD pad to catch the drainage. When the drainage stops, discontinue the dressings. Continue Zosyn, 3.375gm IV qid for 14 days (56 doses) then stop. Please call my office at [phone] if you have concerns about the abscess drainage site. Problem Qualifiers (1) Sepsis: Sepsis type: sepsis due to unspecified organism Qualified Codes: A41.9 - Sepsis, unspecified organism (2) Altered mental status: Altered mental status type: delirium Qualified Codes: R41.0 - Disorientation, unspecified CRISTA GARCIA MD Sep 15, 2018 07:12
[2018-09-15 07:30] VITALS: BP 126/74
[2018-09-15] MEDS: POTASSIUM CHL 10 MEQ TABCR PO SCH (08:42)
[2018-09-15] MEDS: MULTIVITAMINS TAB PO SCH (08:43)
[2018-09-15] MEDS: PANTOPRAZOLE SOD 40 MG TABEC PO SCH (08:43)
[2018-09-15] MEDS: LACTOBACILLUS ACIDOPHILUS TAB PO SCH (08:43)
[2018-09-15] MEDS: BACLOFEN 10 MG TAB PO SCH ×2 (08:43→13:29)
[2018-09-15] MEDS: DULoxetine HCL 20 MG CAPCR PO SCH (08:43)
[2018-09-15] MEDS: CHOLECALCIFEROL 1000 UNIT TAB PO SCH (08:43)
[2018-09-15] MEDS: DOCUSATE SODIUM 100 MG CAP PO SCH (08:43)
[2018-09-15] MEDS: CRANBERRY PO SCH (08:44)
[2018-09-15] MEDS: OXYBUTYNIN CHL XL 5 MG TABCR PO SCH (08:44)
[2018-09-15] MEDS: PATCH REMOVAL 1 EA TP SCH (09:27)
[2018-09-15] MEDS: fentaNYL 12 MCG TDSY TD SCH (09:27)
[2018-09-15] MEDS: ENOXAPARIN 30 MG/0.3 ML SYR SC SCH (09:27)
--- NOTE | 2018-09-15 09:53 | Hospitalist Progress Note ---
Subjective Progress Notes Subjective He has no complaints this morning. He had no acute events overnight. Patient Complains of: Cardiovascular: No: Chest Pain Respiratory: No: Shortness of Breath Physical Exam Vital Signs Date Time Temp Pulse Resp B/P (MAP) Pulse Ox O2 Delivery O2 Flow Rate FiO2 09/15/18 07:52 96 Room Air 09/15/18 07:30 98.4 83 14 126/74 (91) Intake and Output 09/15/18 07:02 Intake Total 840 ml Output Total 1750 ml Balance -910 ml Intake Oral 740 ml IV Total 100 ml Output Urine Total 1750 ml General Appearance: Alert, Awake, No Acute Distress, Afebrile Cardiovascular: Regular Rate and Rhythm Respiratory: No Respiratory Distress, Clear to Auscultation Psych: Alert & Oriented X3, Appropriate Mood & Affect Result Diagram: 09/15/1851809/15/18518 Assessment and Plan Problems: (1) Abscess, scrotum Status: Acute Assessment & Plan: He had debridement with Dr. Olson. He was initially placed on empiric IV vancomycin and Primaxin. Cultures grew E.Coli, Pseudomonas Aeruginosa, Aerococcus, Citrobacter. He was switched to Zosyn which was susceptible to all organisms. Will require two weeks antibiotic treatment with Zosyn. He will get PICC line placed today for antibiotic infusion, which will be given at [facility]. (2) Atrial fibrillation with RVR Status: Acute Assessment & Plan: He had one episode of atrial fibrillation with RVR. No ischemic changes. The patient denied chest pain or shortness of breath with rat es in the 180s. Troponin was negative. Diltiazem gtt started but rate not controlled and BP borderline, diltiazem was stopped. He was given a one time dose of digoxin 0.25mg and has been rate controlled without atrial fibrillation. (3) ARF (acute renal failure) Status: Acute Assessment & Plan: Improved. Creatinine 1.2 yesterday. Baseline creatinine appears to be near 1.2-1.5, elevated at 2.5 on admission. (4) Multiple sclerosis Status: Chronic Assessment & Plan: He received decreased baclofen dosing upon admission secondary to acute kidney injury. We now have resumed his usual dosing. (5) Sepsis Status: Resolved Assessment & Plan: Secondary to scrotal abscess, as above. (6) Altered mental status Status: Resolved Assessment & Plan: Likely due to infection. Improved. (7) Leukocytosis Status: Acute Assessment & Plan: Improved/resolved. Secondary to infection, monitor. Central Venous Access Medical Necessity for Access: Hemodynamic Monitoring, IV Access, Medication Administration Exam Sepsis Risk: No Definite Risk Problem Qualifiers (1) Sepsis: Sepsis type: sepsis due to unspecified organism Qualified Codes: A41.9 - Sepsis, unspecified organism (2) Altered mental status: Altered mental status type: delirium Qualified Codes: R41.0 - Disorientation, unspecified KIRILL AKERS ELECTRIC DISTRIBUTION CHECKER Sep 15, 2018 09:53
[2018-09-15 11:22] VITALS: BP 119/62
--- NOTE | 2018-09-15 12:57 | NUR ---
phone called received from CINDY Reagan at 1202- CINDY states he is okay with Jared's discharge today. CINDY states no questions at this time
--- NOTE | 2018-09-15 16:53 | RADIOLOGY IMAGING REPORT ---
[place] [facility] [place] : 1950 MR: [id number] V: [id number] EXAM DATE: ORDERING PHYSICIAN: KIRILL AKERS TECHNOLOGIST: Location: [facility] Patient: Jared Hammond : 1950 Visit/Account:[id number] Date of Sevice: 09/15/2018 Exam type: US GUIDANCE VASCULAR ACCESS, PICC LINE INSERTION History: single lumen PICC Comparison: None. Findings: Informed consent was obtained by the patient's [facility] power of electronic publishing specialist. Patient's right arm was prepped and draped usual sterile fashion. Local anesthesia was, 1% lidocaine . Under direct and continuous sonographic guidance an 18-gauge micropuncture needle was advanced per cutaneously into the patent right cephalic vein. Utilizing fluoroscopic guidance the guidewire was a dvanced through the needle to the superior vena cava. The needle was removed and a peel-away sheath was advanced over the guidewire. Guidewire was removed and a 37 cm long trimmed 4 Citizen Of [place] single-lumen parapelvic was inserted via the patent right cephalic vein with the distal tip resting in superior vena cava. Fluoroscopic assistance was utilized. The PICC line was flushed with 5 mL of saline flush. The proximal portion PICC line was adhered the adrianna ent's arm the sterile dressing. The sonographic images were saved to PACS the fluoroscopy dose area product was 65.72 micro-Lee per meter squared IMPRESSION: 1. Successful sonographically fluoroscopically guided placement of a 37 cm long trimmed 4 Citizen Of [place] sin gle lumen power PICC inserted via the patent right cephalic vein with the distal tip resting in super ior vena cava. Report Dictated By: Kaylie Soria MD at 09/15/2018 4:42 PM Report E-Signed By: Kaylie Soria MD at 09/15/2018 4:46 PM WSN:[email or web address]
--- NOTE | 2018-09-15 16:54 | RADIOLOGY IMAGING REPORT ---
FACILITY: [facility] PATIENT NAME: Jared Hammond : 1950 MR: [id number] V: [id number] EXAM DATE: ORDERING PHYSICIAN: KIRILL AKERS TECHNOLOGIST: Location: [facility] Patient: Jared Hammond : 1950 Visit/Account:[id number] Date of Sevice: 09/15/2018 Exam type: US GUIDANCE VASCULAR ACCESS, PICC LINE INSERTION History: single lumen PICC Comparison: None. Findings: Informed consent was obtained by the patient's [facility] power of aboriginal ceremonial celebrant. Patient's right arm was prepped and draped usual sterile fashion. Local anesthesia was, 1% lidocaine . Under direct and continuous sonographic guidance an 18-gauge micropuncture needle was advanced per cutaneously into the patent right cephalic vein. Utilizing fluoroscopic guidance the guidewire was a dvanced through the needle to the superior vena cava. The needle was removed and a peel-away sheath was advanced over the guidewire. Guidewire was removed and a 37 cm long trimmed 4 [place] single-lumen parapelvic was inserted via the patent right cephalic vein with the distal tip resting in superior vena cava. Fluoroscopic assistance was utilized. The PICC line was flushed with 5 mL of saline flush. The proximal portion PICC line was adhered the adrianna ent's arm the sterile dressing. The sonographic images were saved to PACS the fluoroscopy dose area product was 65.72 micro-Lee per meter squared IMPRESSION: 1. Successful sonographically fluoroscopically guided placement of a 37 cm long trimmed 4 [place] sin gle lumen power PICC inserted via the patent right cephalic vein with the distal tip resting in super ior vena cava. Report Dictated By: Kaylie Soria MD at 09/15/2018 4:42 PM Report E-Signed By: Kaylie Soria MD at 09/15/2018 4:46 PM WSN:[email or web address]
== END 2018-09-15 15:48 | disposition home or self-care (01) | DRG 854 ==
LOC: ER 08:17 → OR 10:36 → MED 13:30
PROVIDERS: ADMIT Surgery; ATTEND Surgery
PROC: 0V950ZZ Drainage of Scrotum, Open Approach (ICD-10-PCS; principal; 2018-09-10 11:26)
DX: A41.9 Sepsis, unspecified organism (principal); N13.4 Hydroureter; N17.9 Acute kidney failure, unspecified; N13.30 Unspecified hydronephrosis; N49.2 Inflammatory disorders of scrotum; R41.82 Altered mental status, unspecified; I48.2 Chronic atrial fibrillation; G35 Multiple sclerosis; Z74.01 Bed confinement status; Z89.421 Acquired absence of other right toe(s); Z86.73 Personal history of transient ischemic attack (TIA), and cerebral infarction without residual deficits; F32.9 Major depressive disorder, single episode, unspecified; K21.9 Gastro-esophageal reflux disease without esophagitis; M19.90 Unspecified osteoarthritis, unspecified site; Z93.59 Other cystostomy status; N31.9 Neuromuscular dysfunction of bladder, unspecified; B96.20 Unspecified Escherichia coli [E. coli] as the cause of diseases classified elsewhere; B96.5 Pseudomonas (aeruginosa) (mallei) (pseudomallei) as the cause of diseases classified elsewhere; B96.89 Other specified bacterial agents as the cause of diseases classified elsewhere
CPT/HCPCS: 36415; 36573; 72192; 80202; 81001; 82040; 82247; 82310; 82374; 82435; 82565; 82947; 83605; 83735; 84075; 84132; 84155; 84295; 84450; 84460; 84484; 84520; 85025; 85610; 85730; 87040; 87070; 87071; 87073; 87077; 87088; 87186; 87205; 93005; 96365; 96366; 96368; 99284; C1751; J0743; J1100; J1160; J1650; J2001; J2270; J2405; J2543; J2704; J2795; J3010; J3370; J3475; J7030; J7040; J7050; Q9967

== ENCOUNTER → 2018-09-10 | Outpatient (CLI) | payer MEDICARE, MEDICAID ==
[2017-04-03 10:55] VITALS: BMI 24.5
[~2018-09-10] MED LIST changes: -HYDR-4309 PO; +HYDR-653 PO; -METR-159 PO; -METR-160 PO; +METR250T8 PO; +METR500T15 PO; -OMEP-125 PO; +OMEP-126 PO; +POLY17PO11 PO; -POLY17PO21 PO; -VANC1.2520 IV; +VANC1.2521 IV
== END ==
LOC: AMB 07:44
PROVIDERS: ATTEND Nurse Practitioner
DX: R41.82 Altered mental status, unspecified (principal); N45.2 Orchitis
CPT/HCPCS: A0425; A0429

== ENCOUNTER → 2018-09-15 | Outpatient (CLI) | payer MEDICARE, MEDICAID ==
[2017-04-03 10:55] VITALS: BMI 24.5
== END ==
LOC: AMB 15:33
PROVIDERS: ATTEND Nurse Practitioner
DX: G81.91 Hemiplegia, unspecified affecting right dominant side (principal); G81.94 Hemiplegia, unspecified affecting left nondominant side
CPT/HCPCS: A0425; A0428

== ENCOUNTER → 2018-09-30 | Outpatient (REF) | payer MEDICARE, MEDICAID ==
[2017-04-03 10:55] VITALS: BMI 24.5
== END ==
LOC: ZZLCC 13:49
PROVIDERS: ATTEND Family Medicine
DX: A41.9 Sepsis, unspecified organism (principal)
CPT/HCPCS: 85027

== ENCOUNTER → 2018-10-10 | Outpatient (REF) | payer MEDICARE, MEDICAID ==
[2017-04-03 10:55] VITALS: BMI 24.5
== END ==
LOC: ZZLCC 16:10
PROVIDERS: ATTEND Family Medicine
DX: N39.0 Urinary tract infection, site not specified (principal)
CPT/HCPCS: 81001; 87088